=== PATIENT | female | born 1945 | race Caucasian/White ===

== ENCOUNTER 2017-05-05 13:40 | Inpatient (IN) | payer MEDICARE, MEDICAID ==
[~2017-05-05] VITALS: Ht 162.6 cm; Wt 77.2 kg
[~2017-05-05 13:40] MED LIST: AMOXICILLIN 50500 MG PO; ATIVAN1 MG PO; NORCO 325 MG-51 TAB PO; RAMIPRIL5 MG PO
[2017-05-05 13:42] VITALS: BP 157/78
--- NOTE | 2017-05-05 13:52 | Emergency Room Report ---
History of Present Illness Time Seen by 134Carmen Presenting Problem in Triage Pt arrived:Wheelchair Presenting Problem:LOWER ABD PAIN THAT STARTED AROUND 1030. 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 N Clinical Suspician of Infection? N Mental Status: 1 - Regular (Normal Baseline) Sepsis Risk:Possible Sepsis Risk Have you (or family members/close friends) recently traveled outside the [place]? N If Yes, where/when: Have you had exposure to infectious disease within the past month? TB? Other? Specify: Source patient, RN notes reviewed, family, old records Exam Limitations no limitations Comment acute onset od lower abd pain with vomiting and dec po intake with no diarrhea or fever Cardiac Chest Pain Chest pain indicative of cardiac No Timing/Duration this afternoon Severity moderate ALLERGIES Coded Allergies: Sulfa (Sulfonamide Antibiotics) (Intermediate, rash 03/25/17) Home Medications Reported Medications Ramipril (Ramipril 5MG) 5 MG PO BID Lorazepam (Ativan 1MG) 1 MG PO TIDP PRN ANXIETY History Medical History General CAD? No Angina: No SD: No Hypertension? Yes Hyperlipidemia? No CHF? No DVT? No PE? No COPD? No Asthma? No Anemia? No GERD? No Gastric ulcers? No GI Bleed? No Hernia? No Thyroid Problems? No Hypothyroidism? No CVA? No Seizures? No Diabetes? No Renal Insuffiency? No End Stage Renal Disease? No UTI? No Stones? No GB Disease: No Nephritic Syndrome? No Asplenia? No Hepatitis? Yes Sickle Cell Disease? No Arthritis? Yes Migraines? No Cataracts? No Glaucoma? No MRSA? No HIV? No TB? No Anxiety? Yes Depression? No Cancer? No More? No Immunization Hx DT/Tetanus > 10 Years Ago Surgical Hx Previous Surgery?Y WISDOM TEETH Social History Smoking Hx Smoker: Never Smoker Tobacco: No Alcohol Alcohol: No Drugs none Review of Systems All Other Systems Reviewed and Negative Constitutional denies fever Eyes denies drainage ENT denies: ear discharge, epistaxis, throat pain. Respiratory denies cough, denies shortness of breath, denies wheezing Cardiovascular denies chest pain, denies palpitations, denies syncope Gastrointestinal see HPI, abdominal pain, denies diarrhea, nausea, denies vomiting Genitourinary denies: dysuria, frequency, hesitancy, hematuria. Musculoskeletal denies back pain, denies joint pain, denies joint swelling, denies neck pain Skin denies rash Psychiatric/Neurological denies headache, denies seizure Physical Exam Vital Signs Vital Signs Date Time Temp Pulse Resp B/P Pulse O2 O2 Flow FiO2 Ox Delivery Rate 05/05 1342 97.9 105 20 157/78 95 - WBC >12,000 or <4,000 or 10% bands? 2 or more SIRS Criteria Met? B/P:157/78 MAP:104 Creatinine >2.0? UA output<0.5ml/kg/hr for 2 hrs? Platelet count >100,000? Lactate >2.0mmol/1? INR >1.2 or PTT > than 60 sec? Evidence of Organ Dysfunction? Provider documented clinical suspician of infection? N Sepsis Criteria Count: 2 Sepsis Risk: Possible Sepsis Risk General Appearance no apparent distress Eye Exam - bilateral eye PERRL, bilateral eye EOMI Ear, Nose, Throat normal ENT inspection Neck supple Respiratory Status No: respiratory distress. Lung Sounds bilateral: lungs clear. 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 No Results/Orders Laboratory Tests 05/05/17 1412: Urine Color YELLOW, Urine Appearance CLEAR, Urine pH 5.0, Ur Specific [place] >= 1.030, Urine Protein TRACE H, Urine Ketones TRACE H, Urine Blood 1+ H, Urine Nitrate NEGATIVE, Urine Bilirubin 1+ H, Urine Urobilinogen 0.2, Ur Leukocyte Esterase TRACE H, Urine RBC 5-10, Urine WBC 3-5, Ur Squamous Epith Cells 20-50, Urine Bacteria 2+, Urine Glucose NEGATIVE 05/05/17 1400: Lactic Acid 1.4 05/05/17 1345: Amylase 31 08/28/17 1345: Sodium 139, Potassium 3.4 L, Chloride 101, Carbon Dioxide 27, BUN 13, Creatinine 1.0, Estimated Creat Clear 57, Estimated GFR (MDRD) 54 L, Glucose 133 H, Calcium 9.1, Total Bilirubin 0.4, AST 22, ALT 25, Alkaline Phosphatase 140 H, Total Protein 8.4 H, Albumin 3.3 L, Globulin 5.1 H, Albumin/Globulin Ratio 0.6 L, WBC 16.8 H, RBC 4.70, Hgb 13.3, Hct 42.1, MCV 89.5, RDW 13.6, Plt Count 585 H, MPV 6.6 L, Gran % 88.8 H, Gran # 14.9 H, Total Counted 100, Lymphocytes % 6.7 L, Monocytes % 2.9, Eosinophils % 1.3, Basophils % 0.3, Neutrophils 82 H, Band Neutrophils 3, Lymphocytes (Manual) 9 L, Lymphocytes # 1.1, Monocytes (Manual) 3, Monocytes # 0.5, Eosinophils # 0.2, Eosinophils # ( Manual) 3, Basophils # 0.1, Platelet Estimate MARKED INCREASE, PUBS MCHC 31.7 L , MCH 28.3 Current Medication Orders Sig/Roberto Carlos Start time Last Medication Dose Route Stop Time Status Admin Levofloxacin/Dextrose 150 ML ONCE ONE 05/05 1500 CKDr IV 05/05 1629 Metronidazole 100 ML ONCE ONE 05/05 1500 AC IV 05/05 1559 Morphine Sulfate 2 MG ONCE ONE 05/05 1500 AC IV 05/05 1501 Ondansetron HCl 4 MG ONCE ONE 05/05 1500 AC 05/05 IV 05/05 1501 1458 Morphine Sulfate 0 .STK-MED ONE 05/05 1457 DC .ROUTE Ondansetron HCl 0 .STK-MED ONE 05/05 1457 DC .ROUTE Sodium Chloride 10 ML PRN PRN 05/05 1400 AC IV 05/06 1347 Orders Procedure Date/time Status DIET-NOTHING BY MOUTH 05/05 D Active Decision to admit 05/05 1458 Active CULTURE, URINE 05/05 1412 Active LACTIC ACID 05/05 1353 Complete AMYLASE 05/[address] SCAN REQ 05/05 1352 Complete IV SALINE LOCK 05/05 1348 Active URINALYSIS/COMPLETE 05/05 1348 Complete CBC WITH AUTO DIFF 05/05 1348 Complete CHEM 12 PROFILE 05/05 1348 Complete DIFFERENTIAL-WBC 05/05 1345 Complete XRAY/CT/US XRAY/CT/US CT abdomen, pelvis CT interpretation by discussed w/radiologist Time results known: 1459 CT Results abnormal (colitis) Departure Departure Time of Disposition 145 Disposition Still a Patient Clinical Impression Primary Impression: Colitis Secondary Impressions: Diverticulitis large intestine Qualifiers: Diverticulitis bleeding: without bleeding Diverticulitis complication: without perforation or abscess Qualified Code: K57.32 - Diverticulitis of large intestine without perforation or abscess without bleeding Condition STABLE Referrals Dominic Molina MD discussed with dr molina ED Critical Care Critical Care No at 1505
[2017-05-05 13:58] LABS: HEMOGLOBIN 13.3 g/dL (12.2-16.2); LYMPH # 1.1 K/mm3 (0.7-4.5); LYMPH % 6.7 % (10-50.0)
[2017-05-05 14:19] LABS: URINE BLOOD 1+ (NEG)
[2017-05-05 14:38] LABS: NEUTROPHILS 82 % (42-76)
[2017-05-05 14:40] LABS: URINE BILIRUBIN - DIPSTICK 1+ (NEG)
[2017-05-05 14:41] LABS: URINE SQUAMOUS CELLS 20-50 #/hpf (0-5)
--- NOTE | 2017-05-05 14:41 | RADIOLOGY REPORT PS360 ---
CT ABD PELVIS W/O CONTRAST CLINICAL INDICATION: Lower abdominal pain ABD PAIN ORDERING PHYSICIAN: [place] MD PATIENT AGE: 72 years COMPARISON: 09/13/2014 TECHNIQUE: Axial images obtained with sagittal and coronal reformats. PROCEDURE: Oral Contrast: None IV Contrast: None . FINDINGS: Lung bases are clear. The gallbladder is somewhat distended with gallstones. The liver, spleen, adrenal glands, and pancreas has an unremarkable unenhanced CT appearance. There is left hydronephrosis versus prominent parapelvic renal cyst. UPJ stenosis is considered. IVP or CT urogram could distinguish between the 2 entities if clinically warranted. No obstructing renal or ureteral calculi. There is diffuse thickening of the transverse colon and descending colon consistent with colitis. There is thickening also the sigmoid colon with multiple prominent sigmoid diverticula. There is mild stranding of the fat in the perisigmoid region. Diverticulitis is a consideration. No abscess or perforation evident. There is a 3.5 cm left ovarian cyst similar to the previous exam. There is dense calcification along the superior aspect of the fundus of the uterus and could be due to small exophytic fibroid There is spondylosis of lumbar spine with 9 mm anterolisthesis of L4 on L5. IMPRESSION: 1. Moderate thickening of the transverse colon with minimal stranding of the pericolic fat along with thickening of the descending and sigmoid colon consistent with colitis 2. Diverticulosis involves the distal descending and sigmoid colon. There is some minimal stranding of the fat in this area which could be related to superimposed diverticulitis as well. No abscess or perforation. 3. 3.5 cm left ovarian cyst. 4. Left hydronephrosis versus parapelvic renal cyst which may be better evaluated with IVP or CT urography
--- NOTE | 2017-05-05 17:14 | HISTORY AND PHYSICAL REPORT ---
Demographics: Admit date: 05/05/17 Chief complaint: Abdominal pain PRIMARY DIAGNOSIS: suspected colitis Allergies: Coded Allergies: Penicillins (Severe, 05/05/17) Sulfa (Sulfonamide Antibiotics) (Intermediate, rash 03/25/17) History of present illness: History of present illness: 72-year-old female has been having gastrointestinal symptoms for the last several months presented to the emergency department today after acute onset of epigastric abdominal pain. Patient had one episode of retching at home and presented to the emergency department because of worsening abdominal pain. In the emergency department workup was begun. Patient had abdominal tenderness, elevated white blood cell count of 16,000, CT scan showing transverse colitis and possible early diverticulitis of the sigmoid colon. Patient is scheduled for colonoscopy on May 16. Patient is admitted for IV antibiotics and pain control. At the time of my interview couple hours after admission she is pain- free and hungry. She denies fevers or chills. Bowel movements have been normal consistency for her Past medical history: Family HX Family Hx Insignificant Yes Immunization HX DT/Tetanus > 10 Years Ago General CAD? No Angina: No CO: No Hypertension? Yes Hyperlipidemia? No CHF? No DVT? No PE? No COPD? No Asthma? No Anemia? No GERD? No Gastric ulcers? No GI Bleed? No Hernia? No Thyroid Problems? No Hypothyroidism? No CVA? No Seizures? No Diabetes? No Renal Insuffiency? No UTI? No Stones? No GB Disease: No Nephritic Syndrome? No Asplenia? No Hepatitis? Yes Sickle Cell Disease? No Arthritis? Yes Migraines? No Cataracts? No Glaucoma? No MRSA? No HIV? No TB? No Anxiety? Yes Depression? No Cancer? No More? No Past Surgical HX Previous Surgery?Y WISDOM TEETH Current home meds: Reported Medications Ramipril (Ramipril 5MG) 5 MG PO BID Lorazepam (Ativan 1MG) 1 MG PO TIDP PRN ANXIETY Social Hx: Smoking HX Tobacco No Alcohol Alcohol: No Hx of Drug Use Drug Use? No Patien't marital status is Review of systems: Constitutional see HPI. Respiratory no symptoms reported. Cardiovascular no symptoms reported Gastrointestinal/Abdominal see HPI Genitourinary no symptoms reported. Musculoskeletal no symptoms reported. Neurological Yes: no symptoms reported. Exam: Lab data for last 24 hours: Laboratory Tests 05/05/17 1412: Urine Color YELLOW, Urine Appearance CLEAR, Urine pH 5.0, Ur Specific [place] >= 1.030, Urine Protein TRACE H, Urine Ketones TRACE H, Urine Blood 1+ H, Urine Nitrate NEGATIVE, Urine Bilirubin 1+ H, Urine Urobilinogen 0.2, Ur Leukocyte Esterase TRACE H, Urine RBC 5-10, Urine WBC 3-5, Ur Squamous Epith Cells 20-50, Urine Bacteria 2+, Urine Glucose NEGATIVE 05/05/17 1400: Lactic Acid 1.4 05/05/17 1345: Amylase 31 05/05/17 1345: Sodium 139, Potassium 3.4 L, Chloride 101, Carbon Dioxide 27, BUN 13, Creatinine 1.0, Estimated Creat Clear 57, Estimated GFR (MDRD) 54 L, Glucose 133 H, Calcium 9.1, Total Bilirubin 0.4, AST 22, ALT 25, Alkaline Phosphatase 140 H, Total Protein 8.4 H, Albumin 3.3 L, Globulin 5.1 H, Albumin/Globulin Ratio 0.6 L, WBC 16.8 H, RBC 4.70, Hgb 13.3, Hct 42.1, MCV 89.5, RDW 13.6, Plt Count 585 H, MPV 6.6 L, Gran % 88.8 H, Gran # 14.9 H, Total Counted 100, Lymphocytes % 6.7 L, Monocytes % 2.9, Eosinophils % 1.3, Basophils % 0.3, Neutrophils 82 H, Band Neutrophils 3, Lymphocytes (Manual) 9 L, Lymphocytes # 1.1, Monocytes (Manual) 3, Monocytes # 0.5, Eosinophils # 0.2, Eosinophils # ( Manual) 3, Basophils # 0.1, Platelet Estimate MARKED INCREASE, PUBS MCHC 31.7 L , MCH 28.3 Microbiology 05/05 141 URINE CC: Urine Culture - RECD Admission vital signs: 1ST Vital Signs Result Date Time Pulse Ox 95 05/05 134 B/P 157/78 05/05 134 Temp 97.9 05/05 134 Pulse 105 05/05 134 Resp 20 05/05 134 Exam General appearance: normal appearance, alert, awake ENT: normal exam, mucous membranes moist Neck: normal inspection, non-tender, no carotid bruit, no JVD Cardiovascular: normal exam Respiratory: normal exam, clear to auscultation ABD: normal exam, non-distended, normal bowel sounds Plan: Problem List 1. Colitis 2. Diverticulitis large intestine Plan: Admit for IV antibiotics and pain control. Patient is already improving. I will advance her diet
[2017-05-05 17:25] VITALS: BP 153/44
[2017-05-05 20:00] VITALS: BP 126/42
[2017-05-06 04:30] VITALS: BP 129/49
[2017-05-06 06:55] LABS: LYMPH # 1.2 K/mm3 (0.7-4.5); LYMPH % 9.2 % (10-50.0)
[2017-05-06 07:13] LABS: HEMOGLOBIN 11.2 g/dL (12.2-16.2)
--- NOTE | 2017-05-06 07:17 | PHARMACY CLINIC NOTE ---
Patient Demographics Patient Demographics Admission date: 05/05/17 Date: 05/06/17 Time: 07 Allergies Coded Allergies: Penicillins (Severe, 05/05/17) Sulfa (Sulfonamide Antibiotics) (Intermediate, rash 03/25/17) HEIGHT- FT: 5 IN: 4.00 K.988 VTE General Information Labs: Laboratory Tests 05/06 05/05 0630 1345 Hematology Hgb (12.2 - 16.2 g/dL) 11.2 L 13.3 Hct (37.0 - 47.0 %) 34.7 L 42.1 Plt Count (142 - 424 K/mm3) 438 H 585 H Disclaimer The following section includes nursing documentation that has been pulled in for pharmacy review. Patient's VTE score: 1 Patient's VTE Risk: VERY LOW RISK Clinical trial participant? No VTE prophylaxis [id number] VTE prophylaxis ordered? Yes Type of prophylaxis/treatment: CHARI at 0717
--- NOTE | 2017-05-06 07:17 | PHARMACY CLINIC NOTE ---
Patient Demographics Patient Demographics Admission date: 05/05/17 Date: 05/06/17 Time: 07 Allergies Coded Allergies: Penicillins (Severe, 05/05/17) Sulfa (Sulfonamide Antibiotics) (Intermediate, rash 03/25/17) HEIGHT- FT: 5 IN: 4.00 K.988 VTE General Information Labs: Laboratory Tests 05/06 05/05 0630 1345 Hematology Hgb (12.2 - 16.2 g/dL) 11.2 L 13.3 Hct (37.0 - 47.0 %) 34.7 L 42.1 Plt Count (142 - 424 K/mm3) 438 H 585 H Disclaimer The following section includes nursing documentation that has been pulled in for pharmacy review. Patient's VTE score: 1 Patient's VTE Risk: VERY LOW RISK Clinical trial participant? No VTE prophylaxis [id number] VTE prophylaxis ordered? Yes Type of prophylaxis/treatment: CHARI at 0717
--- NOTE | 2017-05-06 07:25 | ACUTE CARE PROGRESS NOTE (QUA) ---
Progress Notes Subjective Date 05/06/17 Time 0724 Note Patient complains of LEFT lower quadrant pain this morning. Her appetite remains poor. No fevers overnight. She is in no distress. Lungs are clear. Heart has regular rate and rhythm. Abdomen has LEFT lower quadrant tenderness to palpation without rebound. Continue dual antibiotic therapy for acute diverticulitis. Patient is been ordered a low-residue diet but instructed that if this causes pain we will decrease her diet to liquids Objective Findings Last VS-Temp:98.2 B/P:129/49 Pulse:79 Resp:20 SaO2:95 ROOM AIR Last weight lbs:156 oz:8 K.988 Method:Bed Scales Laboratory Tests 05/06/17 0630: Sodium 139, Potassium 4.0, Chloride 105, Carbon Dioxide 24, BUN 13, Creatinine 0.8, Estimated Creat Clear 70, Estimated GFR (MDRD) 70, Glucose 114 H, Calcium 8.5, WBC 13.1 H, RBC 3.90 L, Hgb 11.2 L, Hct 34.7 L, MCV 89.0, RDW 13.6, Plt Count 438 H, MPV 6.9 L, Gran % 82.4 H, Gran # 10.8 H, Lymphocytes % 9.2 L, Monocytes % 3.9, Eosinophils % 3.8, Basophils % 0.5, Lymphocytes # 1.2, Monocytes # 0.5, Eosinophils # 0.5 H, Basophils # 0.1, PUBS MCHC 32.0, MCH 28.5 05/05/17 1412: Urine Color YELLOW, Urine Appearance CLEAR, Urine pH 5.0, Ur Specific [place] >= 1.030, Urine Protein TRACE H, Urine Ketones TRACE H, Urine Blood 1+ H, Urine Nitrate NEGATIVE, Urine Bilirubin 1+ H, Urine Urobilinogen 0.2, Ur Leukocyte Esterase TRACE H, Urine RBC 5-10, Urine WBC 3-5, Ur Squamous Epith Cells 20-50, Urine Bacteria 2+, Urine Glucose NEGATIVE 05/05/17 1400: Lactic Acid 1.4 05/05/17 1345: Amylase 31 05/05/17 1345: Sodium 139, Potassium 3.4 L, Chloride 101, Carbon Dioxide 27, BUN 13, Creatinine 1.0, Estimated Creat Clear 57, Estimated GFR (MDRD) 54 L, Glucose 133 H, Calcium 9.1, Total Bilirubin 0.4, AST 22, ALT 25, Alkaline Phosphatase 140 H, Total Protein 8.4 H, Albumin 3.3 L, Globulin 5.1 H, Albumin/Globulin Ratio 0.6 L, WBC 16.8 H, RBC 4.70, Hgb 13.3, Hct 42.1, MCV 89.5, RDW 13.6, Plt Count 585 H, MPV 6.6 L, Gran % 88.8 H, Gran # 14.9 H, Total Counted 100, Lymphocytes % 6.7 L, Monocytes % 2.9, Eosinophils % 1.3, Basophils % 0.3, Neutrophils 82 H, Band Neutrophils 3, Lymphocytes (Manual) 9 L, Lymphocytes # 1.1, Monocytes (Manual) 3, Monocytes # 0.5, Eosinophils # 0.2, Eosinophils # ( Manual) 3, Basophils # 0.1, Platelet Estimate MARKED INCREASE, PUBS MCHC 31.7 L , MCH 28.3 Microbiology 05/05 1412 URINE CC: Urine Culture - RECD Assessment/Plan Problem List 1. Colitis 2. Diverticulitis large intestine Qualifiers: Diverticulitis bleeding: without bleeding Diverticulitis complication: without perforation or abscess Qualified Code: K57.32 - Diverticulitis of large intestine without perforation or abscess without bleeding Patient condition Stable Plan: continue current care This inpt stay is expected to cross 2 MNs from start of care Yes at 0725
[2017-05-06 08:00] VITALS: BP 122/53
[2017-05-06 08:55] VITALS: BP 122/53
[2017-05-06 13:50] LABS: AEROMONAS NOT DETECTED (NOT DETECTE); ASTROVIRUS NOT DETECTED (NOT DETECTE); CYCLOSPORA CAYETANENSIS NOT DETECTED (NOT DETECTE); E COLI O157 NOT DETECTED (NOT DETECTE); ENTEROAGGREGATIVE E COLI NOT DETECTED (NOT DETECTE); ENTEROTOXIGENIC E COLI NOT DETECTED (NOT DETECTE); NOROVIRUS NOT DETECTED (NOT DETECTE); SAPOVIRUS NOT DETECTED (NOT DETECTE); SHIGA-LIKE TOXIN PROD. E COLI NOT DETECTED (NOT DETECTE); SHIGELLA/ENTEROINVASIVE E COLI NOT DETECTED (NOT DETECTE); VIBRIO CHOLERAE NOT DETECTED (NOT DETECTE)
[2017-05-06 15:29] VITALS: BP 121/45
[2017-05-06 17:44] LABS: ENTEROPATHOGENIC E COLI DETECTED (NOT DETECTE)
[2017-05-06 20:07] VITALS: BP 151/41
[2017-05-06 20:08] VITALS: BP 151/41
[2017-05-07 04:30] VITALS: BP 152/50
[2017-05-07 06:53] LABS: HEMOGLOBIN 10.9 g/dL (12.2-16.2); LYMPH % 8.5 % (10-50.0)
--- NOTE | 2017-05-07 07:36 | ACUTE CARE PROGRESS NOTE (QUA) ---
Progress Notes Subjective Date 05/07/17 Time 0735 Note Patient vomited yesterday morning after her low residue diet. Diet was decreased to liquids which she also vomited up about 30 minutes after ingesting at suppertime. Patient is also developed diarrhea. No fevers. She appears comfortable. Abdomen is soft with LEFT upper quadrant and LEFT lower quadrant tenderness today. She is more tender today than yesterday. Diarrhea panel grew enteropathogenic E. coli. White blood cell count has decreased slightly to 11,000. Repeat CT scan of abdomen and pelvis with IV and oral contrast today. Objective Findings Last VS-Temp:98.8 B/P:152/50 Pulse:83 Resp:18 SaO2:95 ROOM AIR Last weight lbs:156 oz:8 K.988 Method:Bed Scales Laboratory Tests 05/07/17 0611: WBC 11.7 H, RBC 3.90 L, Hgb 10.9 L, Hct 35.3 L, MCV 90.5, RDW 13.7, Plt Count 419, MPV 6.9 L, Gran % 83.1 H, Gran # 9.7 H, Lymphocytes % 8.5 L, Monocytes % 5.2, Eosinophils % 3.0, Basophils % 0.2, Lymphocytes # 1.0, Monocytes # 0.6, Eosinophils # 0.4, Basophils # 0.0, PUBS MCHC 31.0 L, MCH 28.0 05/06/17 1345: Stl Cyclospora species NOT DETECTED, Stool Rotavirus (PCR) NOT DETECTED, Stool Campylobacter PCR NOT DETECTED, Stool Giardia Lamblia PCR NOT DETECTED, Stl Norovirus GI/GII PCR NOT DETECTED, Adenovirus (PCR) NOT DETECTED, C. difficile Tox (PCR) NOT DETECTED, E. coli (PCR) NOT DETECTED, Yersinia (PCR) NOT DETECTED Assessment/Plan Problem List 1. Colitis 2. Diverticulitis large intestine Qualifiers: Diverticulitis bleeding: without bleeding Diverticulitis complication: without perforation or abscess Qualified Code: K57.32 - Diverticulitis of large intestine without perforation or abscess without bleeding Patient condition Guarded Plan: continue current care, order additional tests This inpt stay is expected to cross 2 MNs from start of care Yes at 0736
[2017-05-07 08:00] VITALS: BP 143/65
[2017-05-07 09:29] VITALS: BP 143/65
--- NOTE | 2017-05-07 13:54 | RADIOLOGY REPORT PS360 ---
CT ABD PELVIS W/WO CONTRAST INDICATION: ABDOMEN PAIN, COLITIS, UTI, DIVERTICULITIS ORDERING PHYSICIAN: Dominic Kim MD PATIENT AGE: 72 years COMPARISON: 05/05/2017 TECHNIQUE: Axial images obtained without and with IV contrast. Oral contrast also utilized FINDINGS: Atelectatic changes are present in the lung bases.. There is trace left pleural effusion. The liver has an unremarkable appearance. Gallstones are suspected. No biliary dilatation. There was decreased attenuation in the medial aspect of the spleen on the immediate images not apparent on the delayed images consistent with perfusion artifact. Atrophic changes are present within the pancreas. The adrenal glands are unremarkable. There are bilateral parapelvic renal cysts more extensive on the left. No hydronephrosis or hydroureter. The left renal collecting system is attenuated by the overlying parapelvic renal cyst. Increased thickening is present involving the transverse colon. There is some mild dilatation of the bowel involving the transverse colon. Pseudomembranous colitis is considered. The descending colon has an unremarkable appearance. There are diverticula once again noted involving the sigmoid colon with thickening of the sigmoid colon and minimal stranding of the pericolic fat suspicious for mild diverticulitis. No abscess. There is a left ovarian cyst which measures 3 cm. The left ovary is enlarged at 5.4 x 3.8 cm. No evidence of abscess or perforation. IMPRESSION: 1. Increased thickening and distention of the transverse colon consistent with colitis. Pseudomembranous colitis should be considered. No obvious pneumatosis. No evidence of free air. 2. Diverticulosis of the sigmoid colon with Persistent thickening of the sigmoid colon with minimal stranding of the pericolic fat consistent with mild diverticulitis not significant change. No abscess or perforation. 3. Slightly enlarged left ovary with left ovarian cyst.
[2017-05-07 16:00] VITALS: BP 148/45
[2017-05-07 19:34] VITALS: BP 136/56
[2017-05-07 19:56] VITALS: BP 136/56
[2017-05-08 04:17] VITALS: BP 155/63
[2017-05-08 07:15] LABS: HEMOGLOBIN 10.9 g/dL (12.2-16.2); LYMPH # 0.9 K/mm3 (0.7-4.5); LYMPH % 7.6 % (10-50.0)
--- NOTE | 2017-05-08 07:32 | ACUTE CARE PROGRESS NOTE (QUA) ---
Progress Notes Subjective Date 05/08/17 Time 0730 Note Patient continues to complain of abdominal pain and this morning is in the suprapubic and LEFT lower quadrant area. CT scan of the abdomen and pelvis yesterday was essentially unchanged. She has colitis in the transverse colon and diverticulosis of the sigmoid colon but no significant diverticulitis. She tolerated a very small amount of clear liquids yesterday She sitting up in bed awake and alert. Abdomen is soft with mild LEFT lower quadrant tenderness to palpation. Bowel sounds present. Going to stop her Levaquin as she is having significant diarrhea. Initial diarrhea PCR panel was negative for C. difficile. As her diverticulitis is improved I'm going to try to avoid any antibiotic associated diarrhea. She will remain on Flagyl. Continue clear liquid Objective Findings Last VS-Temp:98.3 B/P:155/63 Pulse:89 Resp:18 SaO2:95 ROOM AIR Last weight lbs:156 oz:8 K.988 Method:Bed Scales Laboratory Tests 05/08/17 0630: Sodium 138, Potassium 3.3 L, Chloride 104, Carbon Dioxide 25, BUN 7, Creatinine 0.7, Estimated Creat Clear 80, Estimated GFR (MDRD) 82, Glucose 97, Calcium 8.4 L Assessment/Plan Problem List 1. Colitis 2. Diverticulitis large intestine Qualifiers: Diverticulitis bleeding: without bleeding Diverticulitis complication: without perforation or abscess Qualified Code: K57.32 - Diverticulitis of large intestine without perforation or abscess without bleeding Patient condition Improving Plan: continue current care This inpt stay is expected to cross 2 MNs from start of care Yes at 0731
[2017-05-08 08:00] VITALS: BP 156/62
[2017-05-08 09:00] VITALS: BP 156/62
--- NOTE | 2017-05-08 09:27 | ACUTE CARE PROGRESS NOTE (QUA) ---
Progress Notes Subjective Date 05/08/17 Time 0924 Assessment/Plan Problem List 1. Colitis 2. Diverticulitis large intestine This inpt stay is expected to cross 2 MNs from start of care Yes Antibiotic Stewardship (2) Current Culture Results Microbiology 05/05 1412 URINE CC: Urine Culture - COMP KLEBSIELLA PNEUMONIAE Infxn that will respond? Yes (KLEBSIELLA PNEUMONIAE) Right drug,dose,and route? Yes (MACROBID) More targeted antbx? No Comment: SWTICHED FROM LEVAQUIN TO MACROBID DUE TO DIARRHEA. CONTINUING FLAGYL. at 2543
[2017-05-08 16:10] VITALS: BP 142/69
[2017-05-08 19:31] VITALS: BP 159/68
[2017-05-09 04:06] VITALS: BP 140/73
[2017-05-09 06:54] LABS: AEROMONAS NOT DETECTED (NOT DETECTE); ASTROVIRUS NOT DETECTED (NOT DETECTE); CYCLOSPORA CAYETANENSIS NOT DETECTED (NOT DETECTE); E COLI O157 NOT DETECTED (NOT DETECTE); ENTEROAGGREGATIVE E COLI NOT DETECTED (NOT DETECTE); ENTEROTOXIGENIC E COLI NOT DETECTED (NOT DETECTE); NOROVIRUS NOT DETECTED (NOT DETECTE); SAPOVIRUS NOT DETECTED (NOT DETECTE); SHIGA-LIKE TOXIN PROD. E COLI NOT DETECTED (NOT DETECTE); SHIGELLA/ENTEROINVASIVE E COLI NOT DETECTED (NOT DETECTE); VIBRIO CHOLERAE NOT DETECTED (NOT DETECTE)
[2017-05-09 06:59] LABS: STOOL OCCULT BLOOD POSITIVE (NEG)
--- NOTE | 2017-05-09 07:22 | ACUTE CARE PROGRESS NOTE (QUA) ---
Progress Notes Subjective Date 05/09/17 Time 0719 Note Patient estimates she's had about 6 watery loose stools in the last 24 hours. She will develop crampy abdominal pain and then have a bowel movement. She has had similar symptoms in the past when she took Macrodantin which she was placed on yesterday for her Klebsiella pneumoniae urinary tract infection. Her appetite remains poor and she is taking small amounts of liquids. Vital signs reviewed. Abdomen is soft with mild LEFT lower quadrant tenderness to palpation. Tenderness seems to have improved since yesterday. Patient's clinical picture somewhat confusing. Her diarrhea is increasing but her tenderness is decreasing. I'm going to repeat stool studies today. Also check stool for blood. Change her Macrodantin for her UTI. Continue Flagyl. Objective Findings Last VS-Temp:97.7 B/P:140/73 Pulse:86 Resp:18 SaO2:92 ROOM AIR Last weight lbs:156 oz:8 K.988 Method:Bed Scales Laboratory Tests 05/09/17 0020: Stool Occult Blood POSITIVE Assessment/Plan Problem List 1. Colitis 2. Diverticulitis large intestine Qualifiers: Diverticulitis bleeding: without bleeding Diverticulitis complication: without perforation or abscess Qualified Code: K57.32 - Diverticulitis of large intestine without perforation or abscess without bleeding 3. Urinary tract infection 4. Klebsiella infection Patient condition Stable Plan: continue current care This inpt stay is expected to cross 2 MNs from start of care Yes Antibiotic Stewardship (2) Infxn that will respond? Yes (KLEBSIELLA PNEUMONIAE) Right drug,dose,and route? Yes (MACROBID) More targeted antbx? No at 0721
[2017-05-09 07:45] LABS: HEMOGLOBIN 11.1 g/dL (12.2-16.2); LYMPH # 0.8 K/mm3 (0.7-4.5); LYMPH % 5.9 % (10-50.0)
[2017-05-09 08:04] VITALS: BP 170/74
[2017-05-09 08:48] VITALS: BP 170/74
[2017-05-09 08:53] LABS: ENTEROPATHOGENIC E COLI DETECTED (NOT DETECTE)
[2017-05-09 10:51] LABS: NEUTROPHILS 79 % (42-76)
[2017-05-09 16:01] VITALS: BP 155/78
[2017-05-09 19:54] VITALS: BP 174/67
[2017-05-09 21:00] VITALS: BP 174/67
[2017-05-10 04:00] VITALS: BP 192/76
[2017-05-10 07:19] LABS: HEMOGLOBIN 10.9 g/dL (12.2-16.2); LYMPH % 7.7 % (10-50.0)
--- NOTE | 2017-05-10 07:41 | ACUTE CARE PROGRESS NOTE (QUA) ---
Progress Notes Subjective Date 05/10/17 Time 0740 Note Patient is without complaints this morning. She still has mild nausea and does not want anything more than clear liquids. She had multiple bowel movements are up-to-date yesterday and nursing staff reports large bloody bowel movements. Patient did not really feel like there is any significant bright red blood. She describes the stools as brown. She has not had any fevers. She reports improvement in abdominal pain but still has cramping after bowel movements. She looks well. Abdomen is soft with less epigastric tenderness today and no LEFT lower quadrant tenderness. Bowel sounds are present. Continue antibiotics. Encourage the patient to ambulate today. Repeat labs in a.m. H and H remained stable Objective Findings Last VS-Temp:98.6 B/P:192/76 Pulse:89 Resp:20 SaO2:92 ROOM AIR Last weight lbs:156 oz:8 K.988 Method:Bed Scales Laboratory Tests 05/10/17 0705: WBC 13.2 H, RBC 3.86 L, Hgb 10.9 L, Hct 33.7 L, MCV 87.4, RDW 13.6, Plt Count 429 H, MPV 6.7 L, Gran % 85.8 H, Gran # 11.3 H, Lymphocytes % 7.7 L, Monocytes % 4.7, Eosinophils % 1.5, Basophils % 0.2, Lymphocytes # 1.0, Monocytes # 0.6, Eosinophils # 0.2, Basophils # 0.0, PUBS MCHC 32.3, MCH 28.2 Assessment/Plan Problem List 1. Colitis 2. Diverticulitis large intestine Qualifiers: Diverticulitis bleeding: without bleeding Diverticulitis complication: without perforation or abscess Qualified Code: K57.32 - Diverticulitis of large intestine without perforation or abscess without bleeding 3. Urinary tract infection 4. Klebsiella infection Patient condition Stable Plan: continue current care This inpt stay is expected to cross 2 MNs from start of care Yes Antibiotic Stewardship (2) Infxn that will respond? Yes (KLEBSIELLA PNEUMONIAE) Right drug,dose,and route? Yes (MACROBID) More targeted antbx? No at 0741
[2017-05-10 08:30] VITALS: BP 153/72
[2017-05-10 09:09] LABS: NEUTROPHILS 84 % (42-76)
[2017-05-10 16:30] VITALS: BP 146/60
[2017-05-10 20:32] VITALS: BP 162/52
[2017-05-11 04:10] VITALS: BP 157/64
--- NOTE | 2017-05-11 06:49 | ACUTE CARE PROGRESS NOTE (QUA) ---
Progress Notes Subjective Date 05/11/17 Time 0647 Note Patient states she had 4 large loose stools during the day yesterday and 2 overnight.. She had more nausea yesterday and the day before and attributes this to the Levaquin. Her appetite remains poor although she has consumed slightly more clear liquids than on previous days. She is in no distress. The abdomen this morning reveals some mild epigastric tenderness without rebound or guarding. There is no LEFT lower quadrant tenderness. Bowel sounds are present Place her on Invanz. Discontinue Levaquin and Flagyl and Invanz to cover her urinary tract infection Objective Findings Last VS-Temp:97.8 B/P:157/64 Pulse:88 Resp:16 SaO2:97 ROOM AIR Last weight lbs:156 oz:8 K.988 Method:Bed Scales Laboratory Tests 05/10/17 0705: Sodium 143, Potassium 2.6 *L, Chloride 107, Carbon Dioxide 28, BUN 4 L, Creatinine 0.6, Estimated Creat Clear 94, Estimated GFR (MDRD) 98, Glucose 113 H, Calcium 7.9 L, WBC 13.2 H, RBC 3.86 L, Hgb 10.9 L, Hct 33.7 L, MCV 87.4, RDW 13.6, Plt Count 429 H, MPV 6.7 L, Gran % 85.8 H, Gran # 11.3 H, Total Counted 100, Lymphocytes % 7.7 L, Monocytes % 4.7, Eosinophils % 1.5, Basophils % 0.2, Neutrophils 84 H, Band Neutrophils 7, Lymphocytes (Manual) 6 L, Lymphocytes # 1.0, Monocytes (Manual) 2, Monocytes # 0.6, Eosinophils # 0.2, Eosinophils # (Manual) 1, Basophils # 0.0, Platelet Estimate NORMAL, PUBS MCHC 32.3, MCH 28.2 Vital Signs Date Time Temp Pulse Resp B/P Pulse O2 O2 Flow FiO2 Ox Delivery Rate 05/11 0601 16 05/11 0410 97.8 88 16 157/64 97 ROOM AIR Assessment/Plan Problem List 1. Colitis 2. Diverticulitis large intestine Qualifiers: Diverticulitis bleeding: without bleeding Diverticulitis complication: without perforation or abscess Qualified Code: K57.32 - Diverticulitis of large intestine without perforation or abscess without bleeding 3. Urinary tract infection 4. Klebsiella infection Patient condition Improving Plan: continue current care, make medication changes This inpt stay is expected to cross 2 MNs from start of care Yes Antibiotic Stewardship (2) Infxn that will respond? Yes (KLEBSIELLA PNEUMONIAE) Right drug,dose,and route? Yes (MACROBID) More targeted antbx? No at 0648
[2017-05-11 07:05] LABS: HEMOGLOBIN 11.2 g/dL (12.2-16.2)
[2017-05-11 08:00] VITALS: BP 153/73
[2017-05-11 16:02] VITALS: BP 138/58
[2017-05-11 20:16] VITALS: BP 160/69
[2017-05-11 20:35] VITALS: BP 160/69
[2017-05-12 03:51] VITALS: BP 158/71
--- NOTE | 2017-05-12 07:05 | ACUTE CARE PROGRESS NOTE (QUA) ---
Progress Notes Subjective Date 05/12/17 Time 0703 Note Patient continues to report crampy abdominal pain in the lower abdomen and suprapubic region. Pain occurs both after and before bowel movements. She estimates 6 loose stools over the last 24 hours. A couple of the stool she did not make it to the bathroom in time. She was able to tolerate some full liquids yesterday. She appears well. Abdomen is soft and nontender with normal bowel sounds. Lungs are clear. Heart has a regular rate and rhythm. DC IV fluids today to allow for better and more timely ambulation. Continue full liquids. Possible discharge tomorrow. Objective Findings Last VS-Temp:98.2 B/P:158/71 Pulse:94 Resp:20 SaO2:94 ROOM AIR Last weight lbs:156 oz:8 K.988 Method:Bed Scales Assessment/Plan Problem List 1. Colitis 2. Diverticulitis large intestine Qualifiers: Diverticulitis bleeding: without bleeding Diverticulitis complication: without perforation or abscess Qualified Code: K57.32 - Diverticulitis of large intestine without perforation or abscess without bleeding 3. Urinary tract infection 4. Klebsiella infection Patient condition Improving Plan: continue current care This inpt stay is expected to cross 2 MNs from start of care Yes Antibiotic Stewardship (2) Infxn that will respond? Yes (KLEBSIELLA PNEUMONIAE) Right drug,dose,and route? Yes (MACROBID) More targeted antbx? No at 0704
[2017-05-12 07:47] VITALS: BP 158/71
[2017-05-12 08:00] VITALS: BP 151/65
[2017-05-12 16:00] VITALS: BP 146/70
[2017-05-12 19:55] VITALS: BP 153/64
[2017-05-12 20:00] VITALS: BP 153/64
[2017-05-13 04:00] VITALS: BP 152/73
--- NOTE | 2017-05-13 07:13 | ACUTE CARE PROGRESS NOTE (QUA) ---
Progress Notes Subjective Date 05/13/17 Time 0710 Note Patient had elevated temperature yesterday afternoon of 100 degrees. She began complaining of neck pain later in the day. She is received Flexeril and a heating pad. In regards to abdominal pain she states her neck is hurting so bad she's forgotten about her abdominal pain. She continues to have loose stools. She is resting in bed with heating pad on her neck. She has tenderness along the LEFT trapezius. She has difficulty raising the LEFT arm above 60 degrees. Abdomen is soft and nontender. Repeat complete blood count this morning. Monitor for fevers today. Continue muscle relaxants and heating pad Objective Findings Last VS-Temp:97.5 B/P:152/73 Pulse:85 Resp:24 SaO2:95 ROOM AIR Last weight lbs:170 oz:3 K.196 Method:Bed Scales Assessment/Plan Problem List 1. Colitis 2. Diverticulitis large intestine Qualifiers: Diverticulitis bleeding: without bleeding Diverticulitis complication: without perforation or abscess Qualified Code: K57.32 - Diverticulitis of large intestine without perforation or abscess without bleeding 3. Urinary tract infection 4. Klebsiella infection 5. Trapezius muscle strain Patient condition Stable Plan: continue current care, order additional tests This inpt stay is expected to cross 2 MNs from start of care Yes Antibiotic Stewardship (2) Infxn that will respond? Yes (KLEBSIELLA PNEUMONIAE) Right drug,dose,and route? Yes (MACROBID) More targeted antbx? No at 0712
[2017-05-13 08:16] LABS: LYMPH # 1.1 K/mm3 (0.7-4.5); LYMPH % 7.1 % (10-50.0)
[2017-05-13 08:30] VITALS: BP 153/65
[2017-05-13 10:24] VITALS: BP 153/65
[2017-05-13 10:50] LABS: NEUTROPHILS 70 % (42-76)
[2017-05-13 16:30] VITALS: BP 148/74
[2017-05-13 19:57] VITALS: BP 159/62
[2017-05-13 19:58] VITALS: BP 159/62
[2017-05-14 03:50] VITALS: BP 160/71
[2017-05-14 06:56] LABS: LYMPH % 8.2 % (10-50.0)
--- NOTE | 2017-05-14 08:03 | ACUTE CARE PROGRESS NOTE (QUA) ---
Progress Notes Subjective Date 05/14/17 Time 0801 Note Patient reports feeling the same. Bowel movements remain watery and loose but smaller in volume. She continues to have episodes of abdominal cramping. She has not had any fevers. Her appetite remains poor. She is in no distress. Lungs are clear. Heart has regular rate and rhythm. Abdomen is soft and nontender with active bowel sounds. Patient's colitis is slowly resolving. She will be discharged home today. She has completed 10 days of antibiotics she will not need any antibiotics for her diverticulitis. She will follow-up in my office in 48 hours. Discharged home with bedside commode, potassium, probiotic. Objective Findings Last VS-Temp:97.9 B/P:160/71 Pulse:87 Resp:18 SaO2:93 ROOM AIR Last weight lbs:170 oz:3 K.196 Method:Bed Scales Laboratory Tests 05/14/17 0622: WBC 11.8 H, RBC 3.84 L, Hgb 11.0 L, Hct 34.0 L, MCV 88.5, RDW 13.9, Plt Count 420, MPV 6.6 L, Gran % 86.1 H, Gran # 10.1 H, Lymphocytes % 8.2 L, Monocytes % 3.7, Eosinophils % 1.8, Basophils % 0.2, Lymphocytes # 1.0, Monocytes # 0.4, Eosinophils # 0.2, Basophils # 0.0, PUBS MCHC 32.4, MCH 28.7 Assessment/Plan Problem List 1. Colitis 2. Diverticulitis large intestine Qualifiers: Diverticulitis bleeding: without bleeding Diverticulitis complication: without perforation or abscess Qualified Code: K57.32 - Diverticulitis of large intestine without perforation or abscess without bleeding 3. Urinary tract infection 4. Klebsiella infection 5. Trapezius muscle strain Patient condition Improving Plan: continue current care This inpt stay is expected to cross 2 MNs from start of care Yes Antibiotic Stewardship (2) Infxn that will respond? Yes (KLEBSIELLA PNEUMONIAE) Right drug,dose,and route? Yes (MACROBID) More targeted antbx? No at 0803
[2017-05-14] MEDS ORDERED: K-DUR 20MEQ TA20 MEQ PO (08:07)
[2017-05-14] MEDS ORDERED: RISAQUAD1 CA1 PO (08:07)
--- NOTE | 2017-05-14 08:07 | Discharge Summary ---
Demographics Admit date: 05/05/17 Discharge date: 05/14/17 Discharge diagnoses Problem List 1. Colitis 2. Diverticulitis large intestine 3. Urinary tract infection 4. Klebsiella infection 5. Trapezius muscle strain History of present illness History of present illness 72-year-old female has been having gastrointestinal symptoms for the last several months presented to the emergency department today after acute onset of epigastric abdominal pain. Patient had one episode of retching at home and presented to the emergency department because of worsening abdominal pain. In the emergency department workup was begun. Patient had abdominal tenderness, elevated white blood cell count of 16,000, CT scan showing transverse colitis and possible early diverticulitis of the sigmoid colon. Patient is scheduled for colonoscopy on May 16. Patient is admitted for IV antibiotics and pain control. At the time of my interview couple hours after admission she is pain- free and hungry. She denies fevers or chills. Bowel movements have been normal consistency for her. Patient was admitted and placed on Levaquin and Flagyl for her diverticulitis. Diarrhea panel revealed enteropathogenic E. coli infection. As hospitalization progressed bowel movements went from normal consistency to watery and large in volume with occasional mixture of blood. Bowel movements stay loose for most of the hospitalization. After 72 hours patient's pain had worsened in the LEFT lower quadrant so repeat CT scan was performed with IV and oral contrast. Repeat CT scan showed only small amount of diverticulitis and persistent transverse colitis. By this time patient's urine culture also grew Klebsiella species. Patient's white count had also increased and patient was switched from Levaquin and Flagyl to Invanz which she stayed on for the rest of her hospitalization. Patient did not get out of bed very much during her ten-day hospitalization other than to go to the bathroom despite repeated encouragement. She completed a 10 day course of antibiotics while hospitalized. Patient had repeat diarrhea panel performed which confirmed presence of enteropathogenic E. coli. Patient was scheduled for colonoscopy on May 16 but this will need to be postponed. By May 14 patient was tolerating full liquids and soft diet and diarrhea was beginning to improve. I did explain to the patient did the nature of the colitis that diarrhea may take some time to resolve. Patient was discharged home on May 14 in stable condition. She will follow-up in my office in 48 hours. She will continue new medication of potassium. She will also continue probiotic as an outpatient. Bedside commode will be arranged as well. Medications Medications: Discharge meds are as noted. Follow up Follow up in office in: 2 DAYS with: Dominic Kim MD at [phone]
[2017-05-14] MEDS ORDERED: COMM1 XX (08:08)
[2017-05-14 08:30] VITALS: BP 127/71; BP 173/62
[2017-05-14 09:00] VITALS: BP 160/71; BP 173/62
[2017-05-14 13:22] VITALS: BP 173/62
[2017-05-14 16:30] VITALS: BP 135/72
== END 2017-05-14 17:35 | disposition home or self-care (01) | DRG 372 ==
LOC: ER 13:40 → 2ND 15:01 → ER 15:01 → 2ND 15:30
PROVIDERS: Emergency Medicine; Family Medicine
DX: A04.0 Enteropathogenic Escherichia coli infection (principal); N39.0 Urinary tract infection, site not specified; B96.1 Klebsiella pneumoniae [K. pneumoniae] as the cause of diseases classified elsewhere; I10 Essential (primary) hypertension; K57.32 Diverticulitis of large intestine without perforation or abscess without bleeding; S46.819A Strain of other muscles, fascia and tendons at shoulder and upper arm level, unspecified arm, initial encounter
CPT/HCPCS: G0328; J1335; J2405; Q9967

== ENCOUNTER 2017-05-23 10:17 | Emergency (ER) | payer MEDICARE, MEDICAID ==
[~2017-05-23] VITALS: Ht 162.6 cm; Wt 75.8 kg
[~2017-05-23 10:17] MED LIST changes: +COMM1 XX; +K-DUR 20MEQ TA20 MEQ PO; +RISAQUAD1 CA1 PO
[2017-05-23] MEDS ORDERED: LASIX20 MG PO (10:37)
--- NOTE | 2017-05-23 10:40 | Emergency Room Report ---
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 N Clinical Suspician of Infection? N Mental Status: 1 - Regular (Normal Baseline) Sepsis Risk:Low Sepsis Risk Have you (or family members/close friends) recently traveled outside the [place]? N If Yes, where/when: Have you had exposure to infectious disease within the past month? N TB? Other? Specify: Patient with generalized weakness, cramping pelvic pain for the last few months, necessitating admission for transverse colitis, Klebsiellae UTI, diverticulitis, requiring initially Levaquin and Flagyl, followed by Marya. She was placed on a diuretic for global edema after receiving IVF during hospitalization; she also was placed on potassium. She has very little appetite, and is forcing herself to eat. She has no calf pain or SOB. She has had diarrhea for several months, and is scheduled to see Dr. Bailey, laser machine operator, on May 26, 2017, but the cramping became worse today and she wished to seek evaluation today. No fever. No new urinary sx. No vomiting. ALLERGIES Coded Allergies: Penicillins (Severe, 05/05/17) Sulfa (Sulfonamide Antibiotics) (Intermediate, rash 03/25/17) Home Medications Active Scripts POTASSIUM CHL (Potassium Chloride) 20 MEQ PO BID #60 TAB Prov: 05/14/17 L. ACIDOPHILUS/STREPT/LA P-KIYA (Risaquad Capsules) 1 CAP PO AC #90 CAPSULE Prov: 05/14/17 Device (Commode, Bedside) 1 UNIT XX UD #1 DEV Prov: 05/14/17 Reported Medications Ramipril (Ramipril 5MG) 5 MG PO BID Lorazepam (Ativan 1MG) 1 MG PO TIDP PRN ANXIETY Furosemide (Lasix) 20 MG PO DAILY History Medical History General CAD? No Angina: No HI: No Hypertension? Yes Hyperlipidemia? No CHF? No DVT? No PE? No COPD? No Asthma? No Anemia? No GERD? No Gastric ulcers? No GI Bleed? No Hernia? No Thyroid Problems? No Hypothyroidism? No CVA? No Seizures? No Diabetes? No Renal Insuffiency? No End Stage Renal Disease? No UTI? No Stones? No GB Disease: No Nephritic Syndrome? No Asplenia? No Hepatitis? Yes Sickle Cell Disease? No Arthritis? Yes Migraines? No Cataracts? No Glaucoma? No MRSA? No HIV? No TB? No Anxiety? Yes Depression? No Cancer? No More? No Immunization Hx DT/Tetanus > 10 Years Ago Pneumonia Refuses Surgical Hx Previous Surgery?Y WISDOM TEETH Family History Family Hx Diabetes No CAD No Hypertension Yes Hyperlipidemia Yes Cancer Yes TB No Social History Smoking Hx Smoker: Never Smoker Tobacco: No Alcohol Alcohol: No Review of Systems All Other Systems Reviewed and Negative Constitutional see HPI, weakness Gastrointestinal see HPI Psychiatric/Neurological see HPI, weakness Physical Exam Vital Signs Vital Signs Date Time Temp Pulse Resp B/P Pulse O2 O2 Flow FiO2 Ox Delivery Rate 05/23 1132 97.5 92 18 145/88 98 05/23 1029 97.5 110 18 168/72 98 General Appearance normal appearance, WD/WN, no apparent distress Eye Exam - bilateral eye normal exam, bilateral eye PERRL, bilateral eye EOMI Neck normal inspection, non-tender, supple, full range of motion Respiratory Status Yes: trachea midline, chest symmetrical, non tender chest. No: respiratory distress, tender on palpation, use of accessory muscles, pain on inspiration, pain on expiration, productive cough, non productive cough. Lung Sounds bilateral: normal breath sounds, lungs clear. Cardiovascular normal exam, regular rate/rhythm, no peripheral edema, normal peripheral pulses, tachycardia Gastrointestinal normal bowel sounds, normal exam, non tender, soft, no organomegaly, distended (very mildly distended but soft), no guarding, no rebound Extremities pedal edema Strength 4 Lower Ext (L), 4 Lower Ext (R), 5 Upper Ext (L), 5 Upper Ext (R) Neurologic alert, normal exam, no motor/sensory deficits, oriented x 3 Skin intact, normal color, warm/dry, pallor Medical Decision Making LABS/Meds/Orders Pt receiving controlled substance in ED? No Results/Orders Laboratory Tests 05/23/17 1125: Urine Color YELLOW, Urine Appearance CLOUDY, Urine pH 6.0, Ur Specific [place] 1.020, Urine Protein NEGATIVE, Urine Ketones NEGATIVE, Urine Blood NEGATIVE, Urine Nitrate NEGATIVE, Urine Bilirubin NEGATIVE, Urine Urobilinogen 1.0, Ur Leukocyte Esterase NEGATIVE, Urine WBC 3-5, Ur Squamous Epith Cells 20-50, Urine Bacteria 3+, Urine Mucus 1+, Urine Yeast 1+, Urine Glucose NEGATIVE 05/23/17 1043: Troponin I < 0.02 05/23/17 1030: Sodium 139, Potassium 3.5, Chloride 106, Carbon Dioxide 28, BUN 11, Creatinine 0.7, Estimated Creat Clear 86, Estimated GFR (MDRD) 82, Glucose 146 H, Calcium 7.6 L, Total Bilirubin 0.2, AST 10 L, ALT 12, Alkaline Phosphatase 98, Total Protein 5.6 L, Albumin 1.3 L, Globulin 4.3 H, Albumin/Globulin Ratio 0.3 L, Lipase 67 L, WBC 7.6, RBC 3.63 L, Hgb 10.1 L, Hct 31.8 L, MCV 87.5, RDW 13.9 , Plt Count 730 H, MPV 6.8 L, Gran % 74.5, Gran # 5.7, Lymphocytes % 17.8, Monocytes % 5.5, Eosinophils % 2.0, Basophils % 0.2, Lymphocytes # 1.4, Monocytes # 0.4, Eosinophils # 0.2, Basophils # 0.0, PUBS MCHC 31.8, MCH 27.8 Current Medication Orders Sig/Roberto Carlos Start time Last Medication Dose Route Stop Time Status Admin Sodium Chloride 10 ML PRN PRN 05/23 1030 AC IV 05/24 1022 Orders Procedure Date/time Status DIET-NOTHING BY MOUTH 05/23 L Active DIARRHEA PANEL, PCR 05/23 1127 Active CULTURE, URINE 05/23 1125 Active ELECTROCARDIOGRAM REQUEST 05/23 1043 Active TROPONIN I 05/23 1043 Complete 12 LEAD EKG-BESSON (INITIAL) 05/[address] ABD/PELVIS REQ 05/23 1025 Complete IV SALINE LOCK 05/23 1025 Active URINALYSIS/COMPLETE 05/23 1025 Complete LIPASE 05/23 1025 Complete CBC WITH AUTO DIFF 05/23 1025 Complete CHEM 12 PROFILE 05/23 1025 Complete CM/EKG CM/EKG EKG rate, NSR, rhythm, no evid. of ischemic chgs, no ectopy, normal QRS, normal IL, normal EKG (NSR 98) XRAY/CT/US XRAY/CT/US CT interpretation by reviewed by me, discussed w/radiologist Time results known: 1122 CT Results abnormal, overall improvement of transverse colitis and diverticulitis on comparison to recent study; has some ansarca and increased stool in the cecum. Consult MD Physician Consult Time Called 1149 Reason Pt. Condition Comments Departure Departure Time of Disposition 1150 Disposition DC Home or Self Care(routine) Clinical Impression Primary Impression: Abdominal pain Qualifiers: Abdominal location: lower abdomen, unspecified Qualified Code: R10.30 - Lower abdominal pain, unspecified Condition STABLE Referrals Julio FLETCHER,Dominic (Family) Patient Instructions Acute Abdominal Pain Additional Instructions Drink Ensure, one to two cans daily, as a supplement to your usual diet; eat a little yogurt daily; see Dr. Bailey/his [employer]; keep appointment already set up for three days from now; see Dr. Kim next week as well; bring stool sample back for outside testing with results to be called to Dr. Kim but tell Dr. Bailey these samples were ordered so he can also check these results when you see him or his [employer] next week. Your urine does not appear infected today, so no need for antibiotics. Discharge Counseling Counseled pt/family regarding diagnosis, test results, home care, follow up needs ED Critical Care Critical Care No at 1201
[2017-05-23 10:43] LABS: HEMOGLOBIN 10.1 g/dL (12.2-16.2); LYMPH # 1.4 K/mm3 (0.7-4.5); LYMPH % 17.8 % (10-50.0)
[2017-05-23 11:37] LABS: URINE BILIRUBIN - DIPSTICK NEGATIVE (NEG); URINE BLOOD NEGATIVE (NEG)
--- NOTE | 2017-05-23 11:49 | RADIOLOGY REPORT PS360 ---
CT ABD PELVIS W/O CONTRAST COMPARISON: CT scan abdomen pelvis 05/07/2017 HISTORY: Abdominal pain follow-up suspected colitis and diverticulitis TECHNIQUE: Multiaxial scans obtained from the hemidiaphragms the pelvic floor were performed without IV or oral contrast. Sagittal coronal reformats were evaluated as well. FINDINGS: There is a small left pleural effusion which was not seen on the previous study. The liver spleen pancreas and gallbladder appear grossly normal. Stomach is moderately distended with ingested food particles in addition to a large amount gas. The kidneys are normal in size and again noted are parapelvic cyst of the left collecting system and a somewhat extrarenal pelvis left side. There is diffuse hazy edema of the subcutaneous tissues consistent with generalized anasarca probably from fluid overload. Small bowel appears normal and the appendix is normal. There is large amount stool in the cecum and lower ascending colon. There has been interval improvement in the diffuse wall thickening of the transverse colon suggestive of colitis. Also there has been interval improvement in the appearance of the sigmoid colon suggesting resolving focal diverticulitis. Again noted is a small left ovarian cyst, uterus is normal. The urinary bladder is partially decompressed. IMPRESSION: Resolving colitis of the transverse colon and diverticulitis of the sigmoid colon but there does appear to be mild generalized anasarca of the subcutaneous tissues probably secondary to fluid overload following treatment of the above two conditions.
[2017-05-23 11:57] LABS: URINE SQUAMOUS CELLS 20-50 #/hpf (0-5)
[2017-05-23 12:19] VITALS: BP 145/88
== END 2017-05-23 12:20 | disposition home or self-care (01) ==
LOC: ER 10:17
PROVIDERS: Emergency Medicine
DX: R10.30 Lower abdominal pain, unspecified (principal); I10 Essential (primary) hypertension; Z79.899 Other long term (current) drug therapy

== ENCOUNTER 2017-06-03 05:38 | Inpatient (IN) | payer MEDICARE ==
[~2017-06-03] VITALS: Ht 162.6 cm; Wt 61.8 kg
[~2017-06-03 05:38] MED LIST changes: +LASIX20 MG PO
[2017-06-03 05:50] VITALS: BP 137/57
--- NOTE | 2017-06-03 06:17 | Emergency Room Report ---
History of Present Illness Time Seen by [id number] Presenting Problem in Triage Pt arrived:Wheelchair Presenting Problem:DIARRHEA X 1 MONTH. 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 N Clinical Suspician of Infection? Y Mental Status: 1 - Regular (Normal Baseline) Sepsis Risk:Possible Sepsis Risk Have you (or family members/close friends) recently traveled outside the [place]? N If Yes, where/when: Have you had exposure to infectious disease within the past month? N TB? Other? Specify: Source patient, RN notes reviewed, family, old records Exam Limitations no limitations Comment pt with abd pain with diarrhea over the last few weeks had been admitted with abn ct and diarrhea panel and has seen gi as op with no clear dx- pt with no fever or blood in stool- pt presented sec to ongoing sx- Cardiac Chest Pain Chest pain indicative of cardiac No Timing/Duration this evening Severity moderate ALLERGIES Coded Allergies: Penicillins (Severe, 05/05/17) Sulfa (Sulfonamide Antibiotics) (Intermediate, rash 03/25/17) Home Medications Active Scripts POTASSIUM CHL (Potassium Chloride) 20 MEQ PO BID #60 TAB Prov: 05/14/17 L. ACIDOPHILUS/STREPT/LA P-KIYA (Risaquad Capsules) 1 CAP PO AC #90 CAPSULE Prov: 05/14/17 Device (Commode, Bedside) 1 UNIT XX UD #1 DEV Prov: 05/14/17 Reported Medications Ramipril (Ramipril 5MG) 5 MG PO BID Lorazepam (Ativan 1MG) 1 MG PO TIDP PRN ANXIETY Furosemide (Lasix) 20 MG PO DAILY (Alva FLETCHER,[place]) History Medical History General CAD? No Angina: No [place]: No Hypertension? Yes Hyperlipidemia? No CHF? No DVT? No PE? No COPD? No Asthma? No Anemia? No GERD? No Gastric ulcers? No GI Bleed? No Hernia? No Thyroid Problems? No Hypothyroidism? No CVA? No Seizures? No Diabetes? No Renal Insuffiency? No End Stage Renal Disease? No UTI? No Stones? No GB Disease: No Nephritic Syndrome? No Asplenia? No Hepatitis? Yes Sickle Cell Disease? No Arthritis? Yes Migraines? No Cataracts? No Glaucoma? No MRSA? No HIV? No TB? No Anxiety? Yes Depression? No Cancer? No More? No Immunization Hx DT/Tetanus > 10 Years Ago Pneumonia Refuses Surgical Hx Previous Surgery?Y WISDOM TEETH Family History Family Hx Diabetes No CAD No Hypertension Yes Hyperlipidemia Yes Cancer Yes TB No Social History Smoking Hx Smoker: Never Smoker Tobacco: No Alcohol Alcohol: No Drugs none ([place] MD) Review of Systems All Other Systems Reviewed and Negative Constitutional denies fever Eyes denies drainage ENT denies: ear discharge, epistaxis, throat pain. Respiratory denies cough, denies shortness of breath, denies wheezing Cardiovascular denies chest pain, denies syncope Gastrointestinal see HPI, abdominal pain, diarrhea, nausea, denies vomiting Genitourinary denies: dysuria, frequency, hesitancy, hematuria. Musculoskeletal denies back pain, denies joint pain, denies joint swelling, denies neck pain Skin denies rash Psychiatric/Neurological denies headache, denies seizure ([place] Calle MD) Physical Exam Vital Signs Vital Signs Date Time Temp Pulse Resp B/P Pulse O2 O2 Flow FiO2 Ox Delivery Rate 06/03 0923 115 20 141/59 97 06/03 0741 106 16 114/50 96 06/03 0638 98.4 102 14 139/55 98 06/03 0550 97.8 109 14 137/57 97 - WBC >12,000 or <4,000 or 10% bands? 2 or more SIRS Criteria Met? B/P:114/50 MAP:83 Creatinine >2.0? UA output<0.5ml/kg/hr for 2 hrs? Platelet count >100,000? Lactate >2.0mmol/1? INR >1.2 or PTT > than 60 sec? Evidence of Organ Dysfunction? Provider documented clinical suspician of infection? Y Sepsis Criteria Count: 0 Sepsis Risk: Possible Sepsis Risk General Appearance no apparent distress Eye Exam - bilateral eye PERRL, bilateral eye EOMI Comment no icterus Ear, Nose, Throat normal ENT inspection Neck supple Respiratory Status No: respiratory distress. Cardiovascular regular rate/rhythm Peripheral Pulses Pulses normal Yes Gastrointestinal soft, no organomegaly, no pulsatile mass, no guarding, no rebound, tenderness Back no CVA tenderness Extremities normal inspection Strength 4 Upper Ext (L), 4 Upper Ext (R), 4 Lower Ext (L), 4 Lower Ext (R) Neurologic alert, sample hand II-XII nml as tested, no motor/sensory deficits Reflexes Reflexes normal No Mental status normal mood/affect Skin intact (Alva FLETCHER,[place]) Medical Decision Making LABS/Meds/Orders Pt receiving controlled substance in ED? No Results/Orders Laboratory Tests 06/03/17 0807: Stl Aeromonas (PCR) NOT DETECTED, Stl Cyclospora species NOT DETECTED, Stool Rotavirus (PCR) NOT DETECTED, Stool Astrovirus (PCR) NOT DETECTED, Stool Campylobacter PCR NOT DETECTED, Stool Cryptosporidium PCR NOT DETECTED, Stl E. histolytica PCR NOT DETECTED, Stool Giardia Lamblia PCR NOT DETECTED, Stl P. shigelloides PCR NOT DETECTED, Stool Sapovirus (PCR) NOT DETECTED, Stool Vibrio (PCR) NOT DETECTED, Stl Vibrio cholerae PCR NOT DETECTED, Stl Norovirus GI/GII PCR NOT DETECTED, Adenovirus (PCR) NOT DETECTED, C. difficile Tox (PCR) NOT DETECTED, E. coli (PCR) NOT DETECTED, Salmonella (PCR) NOT DETECTED, Yersinia ( PCR) NOT DETECTED 06/03/17 0652: Urine Color YELLOW, Urine Appearance CLEAR, Urine pH 6.5, Ur Specific [place] 1.010, Urine Protein NEGATIVE, Urine Ketones NEGATIVE, Urine Blood TRACE-INTACT, Urine Nitrate NEGATIVE, Urine Bilirubin NEGATIVE, Urine Urobilinogen 0.2, Ur Leukocyte Esterase NEGATIVE, Urine RBC OCC, Urine WBC OCC, Ur Squamous Epith Cells TNTC, Urine Bacteria 2+, Urine Mucus 1+, Urine Glucose NEGATIVE 06/03/1715: Lipase 47 L, WBC 7.9, RBC 3.47 L, Hgb 9.5 L, Hct 29.8 L, MCV 85.9, RDW 16.3, Plt Count 719 H, Gran % 72.4, Gran # 5.7, Lymphocytes % 19.3, Monocytes % 8.3, Lymphocytes # 1.5, Monocytes # 0.7, PUBS MCHC 31.9 06/03/17 0615: Sodium 136, Potassium 4.7, Chloride 100, Carbon Dioxide 28, BUN 9, Creatinine 0.7, Estimated Creat Clear 79, Estimated GFR (MDRD) 82, Glucose 102, Calcium 8.6 , Total Bilirubin 0.4, AST 13 L, ALT 14, Alkaline Phosphatase 125 H, Total Protein 6.2 L, Albumin 1.8 L, Globulin 4.4 H, Albumin/Globulin Ratio 0.4 L, ESR >120 H, MCH 27.4 Current Medication Orders Sig/Roberto Carlos Start time Last Medication Dose Route Stop Time Status Admin Sodium Chloride 1,000 ML .Q10H 06/03 0630 AC 06/03 IV 06/03 1820 0624 Sodium Chloride 10 ML PRN PRN 06/03 0630 AC IV 06/04 0620 Sodium Chloride 1,000 ML .STK-MED ONE 06/03 0621 DC IV Sodium Chloride 10 ML PRN PRN 06/03 0615 AC IV 06/04 0610 Orders Procedure Date/time Status DIET-NOTHING BY MOUTH 06/03 B Complete Decision to admit 06/03 1041 Active URINALYSIS/COMPLETE 06/03 0741 Complete CULTURE, URINE 06/[address] SCAN REQ 06/03 0636 Complete DIARRHEA PANEL, PCR 06/03 0621 Complete LIPASE 06/03 0620 Complete SED RATE 06/03 0620 Complete IV SALINE LOCK 06/03 0610 Active CBC WITH AUTO DIFF 06/03 06 Complete CHEM 12 PROFILE 06/03 0610 Complete XRAY/CT/US XRAY/CT/US CT abdomen, pelvis CT interpretation by discussed w/radiologist Time results known: 805 CT Results abnormal (see report) (Alva FLETCHER,[place]) Progress - 9:00 AM: At shift change, patient report received from Dr. Calle, and care of the patient assumed by me at this time. Dr. Kim requested that our radiologist interpreted the CT scan in addition to the V-rad reading and then surgical consultation. Radiologist reading is consistent with a pelvic abscess of uncertain origin. Recommend pelvic ultrasound and CT scan with IV and oral contrast. Case discussed with Dr. Garay who says he will consult, patient is appropriate to be admitted here, recommends the above noted tests. Discussed with patient and with Dr. Kim. Dr. Kim requests no antibiotics at this time. (Hermes FLETCHER, [place]) Departure Departure Time of Disposition 0755 Disposition Still a Patient Clinical Impression Primary Impression: Colonic diverticular abscess Condition STABLE Referrals Dominic Kim MD (Family) discussed with dr tracy ED Critical Care Critical Care No (North Calle MD) at [phone] at 110
[2017-06-03 06:21] LABS: HEMOGLOBIN 9.5 g/dL (12.2-16.2)
[2017-06-03 06:24] LABS: LYMPH # 1.5 K/mm3 (0.7-4.5); LYMPH % 19.3 % (10-50.0)
[2017-06-03 08:08] LABS: AEROMONAS NOT DETECTED (NOT DETECTE); ASTROVIRUS NOT DETECTED (NOT DETECTE); CYCLOSPORA CAYETANENSIS NOT DETECTED (NOT DETECTE); E COLI O157 NOT DETECTED (NOT DETECTE); ENTEROAGGREGATIVE E COLI NOT DETECTED (NOT DETECTE); ENTEROPATHOGENIC E COLI NOT DETECTED (NOT DETECTE); ENTEROTOXIGENIC E COLI NOT DETECTED (NOT DETECTE); NOROVIRUS NOT DETECTED (NOT DETECTE); SAPOVIRUS NOT DETECTED (NOT DETECTE); SHIGA-LIKE TOXIN PROD. E COLI NOT DETECTED (NOT DETECTE); SHIGELLA/ENTEROINVASIVE E COLI NOT DETECTED (NOT DETECTE); VIBRIO CHOLERAE NOT DETECTED (NOT DETECTE)
[2017-06-03 08:14] LABS: URINE BILIRUBIN - DIPSTICK NEGATIVE (NEG); URINE BLOOD TRACE-INTACT (NEG)
[2017-06-03 08:29] LABS: URINE SQUAMOUS CELLS TNTC #/hpf (0-5)
--- NOTE | 2017-06-03 09:25 | RADIOLOGY REPORT PS360 ---
CT ABD PELVIS W/O CONTRAST CLINICAL INDICATION: Abdominal pain, diverticulitis ABD PAIN ORDERING PHYSICIAN: [place] Calle MD PATIENT AGE: 72 years COMPARISON: 05/23/2017 TECHNIQUE: Axial images obtained with sagittal and coronal reformats. PROCEDURE: Oral Contrast: None IV Contrast: None . FINDINGS: Lung bases are clear. The liver, spleen, adrenal glands, and pancreas have an unremarkable unenhanced CT appearance. Gallbladder is distended. There may be a few gallstones. Ultrasound may confirm. There are bilateral parapelvic renal cysts more extensive on the left compared to the right. No obstructing renal or ureteral calculi. No evidence of aortic aneurysm. No evidence of appendicitis, intestinal obstruction, or free air. There is thickening of the sigmoid colon as before. There is persistent thickening of the descending colon consistent with colitis Mild persistent diverticulitis is considered. There is colonic diverticulosis. There is a persistent 5 x 4 cm complex cystic lesion in the left adnexa. This now contains some gas suspicious for an abscess. Repeat study with IV and adequate oral contrast may confirm.. This could be related to 2 different processes such as an ovarian cyst with a developing abscess. Pelvic ultrasound recommended for further evaluation as well. No free air apparent. No acute bony anomalies. IMPRESSION: 1. Persistent thickening of the descending colon suggesting colitis. 2. Persistent thickening of the sigmoid colon consistent with diverticulitis. Small amount of gas is now present in the left adnexal cystic area suspicious for an underlying abscess. Consider pelvic ultrasound. Repeat CT scan with IV and oral contrast may also be of further value.
[2017-06-03 13:36] VITALS: BP 144/50
[2017-06-03 13:56] VITALS: BP 153/57
--- NOTE | 2017-06-03 15:39 | CONSULT NOTE ---
Standard Demographics Patient Demo Date of Consultation: 06/03/17 Referring Provider: Dominic Kim MD Reason for Consultation: pelvic abscess PRIMARY DIAGNOSIS: PELVIC ABCESS Allergies: Coded Allergies: Penicillins (Severe, 05/05/17) Sulfa (Sulfonamide Antibiotics) (Intermediate, rash 03/25/17) History of Present Illness Chief Complaint: Diarrhea History of Present Illness: Patient is a 72-year-old white female. She states that since January she has had problems with diarrhea and change in her bowel habits. Reportedly she had a positive Cologuard. Her symptoms of been ongoing and quite significant. Patient states that she was treated with antibiotics for a sinus infection several months ago. She had ongoing persistent symptoms of diarrhea and lower abdominal discomfort. She had seen gastroenterology and was managed medically and plan was for colonoscopy earlier this month. However, the patient was admitted on 05/05/17 through 05/14/17. During that hospitalization she was diagnosed with non- complicated diverticulitis by CT scan and transverse colon colitis. She had enteropathogenic E. coli on stool studies and was treated with antibiotics. She also had a urinary tract infection. She has had ongoing continued symptoms and presented to the emergency department earlier today. She underwent a CT scan of the abdomen and pelvis without any contrast whatsoever. This revealed some thickening of the descending colon and sigmoid colon consistent with colitis/ diverticulitis. However, previously noted cystic area near the LEFT adnexa now revealed air-fluid level consistent with possible abscess. Based on the CT scan without contrast it was difficult to discern whether this was diverticular abscess. Patient was admitted for inpatient management and surgical consultation and additional imaging. Patient denies any severe pain. She does state that she' s had a "pressure" last week in the lower abdomen. Past Medical History Reports: hypertension. Surgical History Previous Surgery?Y WISDOM TEETH Allergies Coded Allergies: Penicillins (Severe, 05/05/17) Sulfa (Sulfonamide Antibiotics) (Intermediate, rash 03/25/17) Medications: Active Scripts POTASSIUM CHL (Potassium Chloride) 20 MEQ PO BID #60 TAB Prov: 05/14/17 L. ACIDOPHILUS/STREPT/LA P-KIYA (Risaquad Capsules) 1 CAP PO AC #90 CAPSULE Prov: 05/14/17 Device (Commode, Bedside) 1 UNIT XX UD #1 DEV Prov: 05/14/17 Reported Medications Ramipril (Ramipril 5MG) 5 MG PO BID Lorazepam (Ativan 1MG) 1 MG PO TIDP PRN ANXIETY Furosemide (Lasix) 20 MG PO DAILY Smoking Hx Tobacco: No Smoker: Never Smoker Type: N/A Packs/day: N/A Are you/the child exposed to second-hand smoke: No Alcohol Alcohol: No Hx of Drug Use Drug Use? No Review of Systems Constitutional Positive for: fatigue, lethargy, malaise, weak. No: chills. Skin No: bruising. Immune/allergy No: allergy. Eyes No: vision loss. ENT No: hearing loss. Respiratory No: shortness of air. Cardiovascular No: chest pain. GI Positive for: abdomen, diarrhea. (female) No: hematuria. Musculoskeletal No: extremity swelling. Heme No: adenopathy. Endocrine No: cold intolerance. Neurological No: change in LOC. Physical Exam VS/I&O Vital Signs Date Time Temp Pulse Resp B/P Pulse O2 O2 Flow FiO2 Ox Delivery Rate 06/03 1356 98.4 111 16 153/57 100 ROOM AIR 06/03 1336 105 06/03 1336 99.2 105 18 144/50 06/03 1336 99 ROOM AIR 06/03 1121 99.2 105 18 144/50 99 06/03 1100 99.2 105 18 144/50 99 06/03 0923 115 20 141/59 97 06/03 0741 106 16 114/50 96 06/03 0638 98.4 102 14 139/55 98 06/03 0550 97.8 109 14 137/57 97 I&O 06/03 0700 Intake Total Output Total Balance Patient 154 lb Weight Exam General appearance no acute distress, alert Respiratory clear to auscultation Cardiovascular normal heart sounds Abdomen soft Findings/Data On examination her abdomen is soft. She has hyperactive bowel sounds. She has some minor subjective tenderness guarding or rebound in the LEFT lower quadrant. Plan Plan: His unclear as to the etiology of the patient's symptoms and radiographic findings. She is scheduled undergo CT scan with contrast. I discussed this with radiology. Plan for IV and oral contrast with possible rectal contrast if needed. Also patient is undergo pelvic ultrasound to better differentiate if this appears to be adnexal etiology or colonic. If this is consistent with abscess perforated diverticulitis will need likely CT-guided drain placement. Would recommend initiating broad-spectrum antibiotics for potential complicated diverticulitis. at [phone]
--- NOTE | 2017-06-03 15:42 | RADIOLOGY REPORT PS360 ---
US PELVIS (NO FETUS) HISTORY: pelvic abscess, ? ovarian source vs diverticulitis ORDERING PHYSICIAN: Dominic Kim MD PATIENT AGE: 72 years COMPARISON: CT scan of the same day FINDINGS: Transabdominal images are performed. The uterus is 6 x 3 x 4.6 cm and has an unremarkable appearance. The right ovary is not identified. Complex area of echogenicity is present in the left adnexa is a complex cystic lesion noted measuring 6.8 x 4.5 cm. There is fluid echogenicity anteriorly with heterogeneous slightly hyperechoic area posteriorly which measures 5.2 x 2.8 cm.. Scans are examined back to 09/13/2014. On that study there was a left ovarian cyst. Left ovarian cyst is also been present at 05/07/2017 and 05/23/2017 exam as well as a 06/03/2017 exam. There is however associated soft tissue density with the cyst noted on today's exam. The soft tissue density does contain some gas and is suspicious for an adjacent abscess neck to the ovarian cyst. Follow-up CT is to be performed with IV and oral contrast. IMPRESSION: Complex left adnexal mass with area of fluid echogenicity. Posterior to the fluid echogenicity is heterogeneous echogenicity probably related to an underlying abscess posterior to a left ovarian cyst.
--- NOTE | 2017-06-03 16:36 | HISTORY AND PHYSICAL REPORT ---
Demographics: Admit date: 06/03/17 Chief complaint: Diarrhea PRIMARY DIAGNOSIS: suspected diverticular abscess Allergies: Coded Allergies: Penicillins (Severe, 05/05/17) Sulfa (Sulfonamide Antibiotics) (Intermediate, rash 03/25/17) History of present illness: History of present illness: 72-year-old female with recent hospitalization from May 05 to May 14 for diverticulitis and colitis presented to the emergency department with complaint of persistent diarrhea. Since discharge from the hospital in early May patient is continued to have loose stools although now they're at the point where she is having a bowel movement every 90 minutes. She has been seen as an outpatient by gastroenterology and is scheduled for colonoscopy at the end of June. During her hospitalization earlier in the month she did have E. coli with in her stool. Workup was begun in the emergency department. Diarrhea panel was negative. Noncontrasted CT showed a LEFT adnexal mass suspicious for pelvic versus diverticular abscess. Patient has been admitted for further workup to include transvaginal ultrasound and contrasted CT. Surgical consultation has been placed. Patient was evaluated by Dr. Garay. She denies fevers or chills. Her white blood cell count was in the normal range. Past medical history: Family HX Family Hx Insignificant No Diabetes No CAD No Hypertension Yes Hyperlipidemia Yes Cancer Yes TB No Immunization HX DT/Tetanus > 10 Years Ago Pneumonia Refuses TB Test in last year No General CAD? No Angina: No [place]: No Hypertension? Yes Hyperlipidemia? No CHF? No DVT? No PE? No COPD? No Asthma? No Anemia? No GERD? No Gastric ulcers? No GI Bleed? No Hernia? No Thyroid Problems? No Hypothyroidism? No CVA? No Seizures? No Diabetes? No Renal Insuffiency? No UTI? No Stones? No GB Disease: No Nephritic Syndrome? No Asplenia? No Hepatitis? Yes Sickle Cell Disease? No Arthritis? Yes Migraines? No Cataracts? No Glaucoma? No MRSA? No HIV? No TB? No Anxiety? Yes Depression? No Cancer? No More? No Past Surgical HX Previous Surgery?Y WISDOM TEETH Current home meds: Active Scripts POTASSIUM CHL (Potassium Chloride) 20 MEQ PO BID #60 TAB Prov: 05/14/17 L. ACIDOPHILUS/STREPT/LA P-KIYA (Risaquad Capsules) 1 CAP PO AC #90 CAPSULE Prov: 05/14/17 Device (Commode, Bedside) 1 UNIT XX UD #1 DEV Prov: 05/14/17 Reported Medications Ramipril (Ramipril 5MG) 5 MG PO BID Lorazepam (Ativan 1MG) 1 MG PO TIDP PRN ANXIETY Furosemide (Lasix) 20 MG PO DAILY Social Hx: Smoking HX Tobacco No Type N/A Packs/day N/A Are you/the child exposed to second-hand smoke: No Alcohol Alcohol: No Hx of Drug Use Drug Use? No Patien't marital status is Review of systems: Constitutional weakness. No: chills, diaphoresis, fever. Respiratory no symptoms reported. Cardiovascular no symptoms reported Gastrointestinal/Abdominal see HPI Genitourinary no symptoms reported. Musculoskeletal no symptoms reported. Neurological Yes: no symptoms reported. Exam: Lab data for last 24 hours: Laboratory Tests 06/03/17 0807: Stl Aeromonas (PCR) NOT DETECTED, Stl Cyclospora species NOT DETECTED, Stool Rotavirus (PCR) NOT DETECTED, Stool Astrovirus (PCR) NOT DETECTED, Stool Campylobacter PCR NOT DETECTED, Stool Cryptosporidium PCR NOT DETECTED, Stl E. histolytica PCR NOT DETECTED, Stool Giardia Lamblia PCR NOT DETECTED, Stl P. shigelloides PCR NOT DETECTED, Stool Sapovirus (PCR) NOT DETECTED, Stool Vibrio (PCR) NOT DETECTED, Stl Vibrio cholerae PCR NOT DETECTED, Stl Norovirus GI/GII PCR NOT DETECTED, Adenovirus (PCR) NOT DETECTED, C. difficile Tox (PCR) NOT DETECTED, E. coli (PCR) NOT DETECTED, Salmonella (PCR) NOT DETECTED, Yersinia ( PCR) NOT DETECTED 06/03/17 0652: Urine Color YELLOW, Urine Appearance CLEAR, Urine pH 6.5, Ur Specific [place] 1.010, Urine Protein NEGATIVE, Urine Ketones NEGATIVE, Urine Blood TRACE-INTACT, Urine Nitrate NEGATIVE, Urine Bilirubin NEGATIVE, Urine Urobilinogen 0.2, Ur Leukocyte Esterase NEGATIVE, Urine RBC OCC, Urine WBC OCC, Ur Squamous Epith Cells TNTC, Urine Bacteria 2+, Urine Mucus 1+, Urine Glucose NEGATIVE 06/03/17 0615: Lipase 47 L, WBC 7.9, RBC 3.47 L, Hgb 9.5 L, Hct 29.8 L, MCV 85.9, RDW 16.3, Plt Count 719 H, Gran % 72.4, Gran # 5.7, Lymphocytes % 19.3, Monocytes % 8.3, Lymphocytes # 1.5, Monocytes # 0.7, PUBS MCHC 31.9 06/03/17 0615: Sodium 136, Potassium 4.7, Chloride 100, Carbon Dioxide 28, BUN 9, Creatinine 0.7, Estimated Creat Clear 79, Estimated GFR (MDRD) 82, Glucose 102, Calcium 8.6 , Total Bilirubin 0.4, AST 13 L, ALT 14, Alkaline Phosphatase 125 H, Total Protein 6.2 L, Albumin 1.8 L, Globulin 4.4 H, Albumin/Globulin Ratio 0.4 L, ESR >120 H, MCH 27.4 Microbiology 06/03 0652 URINE CC: Urine Culture - RECD Admission vital signs: 1ST Vital Signs Result Date Time Pulse Ox 97 06/03 0550 B/P 137/57 06/03 0550 Temp 97.8 06/03 0550 Pulse 109 06/03 0550 Resp 14 06/03 0550 O2 Delivery ROOM AIR 06/03 1336 Exam General appearance: normal appearance, alert, awake Eyes: normal exam, anicteric ENT: normal exam, mucous membranes moist Neck: normal inspection, non-tender, no carotid bruit, no JVD Cardiovascular: normal exam Respiratory: normal exam, clear to auscultation ABD: normal exam, non-distended, normal bowel sounds Plan: Problem List 1. Colonic diverticular abscess Plan: At present we are waiting results of her CT scanning of the abdomen and pelvis with IV and oral contrast. Intravenous antibiotics have been started (Invanz). Further disposition will be made in the morning once all testing is completed. at 1635
--- NOTE | 2017-06-03 17:01 | RADIOLOGY REPORT PS360 ---
CT ABD PELVIS W/ CONTRAST CLINICAL INDICATION: POSSIBLE ABCESS, POSSIBLE DIVERTICULITIS VS OVARIAN SOURCE ORDERING PHYSICIAN: Dominic Kim MD PATIENT AGE: 72 years COMPARISON: Multiple previous exams including 06/03/2017, 05/23/2017, 05/07/2017, 09/13/2014 TECHNIQUE: Axial images obtained with sagittal and coronal reformats. PROCEDURE: Oral Contrast: Gastroview IV Contrast: 75 mg [id number]. FINDINGS: The lung bases are clear. The liver has a small area of decreased attenuation within the medial segment left hepatic lobe at approximately 5 mm nonspecific too small to characterize. Similar to 05/07/2017. Gallbladder is mildly distended. Spleen, adrenal glands, and pancreas are unremarkable. There are bilateral parapelvic renal cysts. No evidence of small bowel obstruction. There is persistent thickening of the splenic flexure , descending colon and sigmoid colon. There is diffuse thickening is present involving the sigmoid colon with a more prominent area of thickening involving the posterior left aspect of the sigmoid colon adjacent to the left adnexal mass. There is a complex left adnexal mass measuring 5.4 x 4.2 cm. This is once again noted to have some peripheral gas along its inferior margin. The lesion is bilocular with the superior aspect of the lesion measuring 4 x 2 cm with an average Hounsfield measurement of 3 and the posterior aspect of the lesion measuring 3.9 x 2 cm with an average Hounsfield measurement of 20. Small amount peripheral gas is noted within the posterior aspect of the lesion. Small amount gas is also noted along the superior aspect of the lesion just posterior to the thickened sigmoid colon. No free pelvic fluid is evident. IMPRESSION: Complex left adnexal cystic mass. Multiple previous exams are reviewed dating back to 09/13/2014. There was noted to be a left adnexal cystic lesion on the older exam of 09/13/2014. The current cystic left adnexal mass may represent a combination of the chronic left ovarian cyst along with a developing abscess posterior to the cyst which contains a small amount of peripheral gas. A small amount of gas is also noted posterior to the thickened portion of the sigmoid colon. THIS COLLECTION IS NOT AMENABLE TO PERCUTANEOUS DRAINAGE BY CT Colitis is suspected of the descending and sigmoid colon. There is however some focal nodular thickening of the sigmoid colon as well. While this may be related to focal inflammatory changes, neoplasm is also considered in the differential diagnosis. Colonoscopy may be of further value when the patient can tolerate.
[2017-06-03 19:16] VITALS: BP 134/60
[2017-06-03 21:57] VITALS: BP 134/60
[2017-06-04] VITALS (13 sets, daily range): BP systolic 149–172; BP diastolic 44–101
--- NOTE | 2017-06-04 07:03 | SURGEON PROGRESS NOTE ---
Subjective data Subjective data: WALTERMARIA M DE LA TORRE is a 72 F .Patient denies complaint of nausea and vomitting.She reports her last pain level as 0 on a 0-10 pain scale. Patient feels about the same. Had been passing liquid until a few hours ago after contrast from CT scan. CT results discussed with radiology. Patient needs new IV. Assessment findings Assessment Exam General appearance: normal appearance, alert ABD: soft Patient plan Diagnoses: Unclear as to etiology. Question refractory colitis vs. diverticulitis. "Abscess" not amenable to drainage. Will plan for careful flexible sigmoidoscopy today to better determine etiology and treatment. Risk of potential perforation is somewhat higher given ongoing pathology. Plan: Steroids
--- NOTE | 2017-06-04 07:50 | PHARMACY CLINIC NOTE ---
Patient Demographics Patient Demographics Admission date: 06/03/17 Date: 06/04/17 Time: 0750 Allergies Coded Allergies: Penicillins (Severe, 05/05/17) Sulfa (Sulfonamide Antibiotics) (Intermediate, rash 03/25/17) HEIGHT- FT: 5 IN: 4.00 K.803 VTE General Information Disclaimer The following section includes nursing documentation that has been pulled in for pharmacy review. Patient's VTE score: 1 Patient's VTE Risk: VERY LOW RISK Clinical trial participant? No VTE prophylaxis [id number] VTE prophylaxis ordered? Yes Type of prophylaxis/treatment: CHARI at 0750
--- NOTE | 2017-06-04 08:10 | ACUTE CARE PROGRESS NOTE (QUA) ---
Progress Notes Subjective Date 06/04/17 Time 0808 Patient/family reports: no complaints, diarrhea Objective Findings Last VS-Temp:98.1 B/P: 152/58 Pulse:75 Resp:16 SaO2:100 ROOM AIR Last weight lbs: 136 oz: 4 K.803 Method: Bed Scales Exam General appearance: alert, active, awake Cardiovascular: regular rate & rhythm Respiratory: clear to auscultation ABD: soft, no tenderness Assessment/Plan Problem List 1. Colonic diverticular abscess Patient condition Stable Plan: continue current care, consult surgeon This inpt stay is expected to cross 2 MNs from start of care Yes Comments: Flex sig today. Continue Invanz.
--- NOTE | 2017-06-04 10:42 | RADIOLOGY REPORT PS360 ---
CHEST PORTABLE-PICC PLACEMENT CLINICAL INDICATION: PICC LINE INSERTION ORDERING PHYSICIAN: Dominic Kim MD PATIENT AGE: 72 years COMPARISON: None FINDINGS: Left upper extremity PICC line has been inserted. The tip is not visible but is directed toward the neck. Unremarkable cardiovascular structures. The lungs are clear. No acute bony anomalies IMPRESSION: PICC line tip NOT in satisfactory position with the tip not visible but directed toward the neck
--- NOTE | 2017-06-04 10:44 | RADIOLOGY REPORT PS360 ---
CHEST PORTABLE-PICC PLACEMENT 10:28 AM CLINICAL INDICATION: REPOSITION ORDERING PHYSICIAN: Dominic Kim MD PATIENT AGE: 72 years COMPARISON: Previous exam same day 10:07 AM FINDINGS: Left upper extremity PICC line has been repositioned. The distal aspect of the PICC line is curled at the region of the brachiocephalic vein on the left with the tip in region of the subclavian vein. IMPRESSION: PICC line curled distally with the tip in the region of the subclavian vein
--- NOTE | 2017-06-04 11:34 | RADIOLOGY REPORT PS360 ---
FLUORO GUIDE FOR CV ACCESS HISTORY: PICC LINE PLACEMENT ORDERING PHYSICIAN: Dominic Kim MD PATIENT AGE: 72 years Fluoroscopy time: 38 seconds FINDINGS: Previously the PICC line was curled in the distal brachiocephalic vein. This had subsequently straightened out with the tip in the region of the cavoatrial area. Catheter was withdrawn approximately 3 cm and is in good position at the distal SVC region. IMPRESSION: Repositioning of PICC line with the tip now at the distal SVC
--- NOTE | 2017-06-04 13:17 | Operative Note ---
Endoscopy Report Date: 06/04/17 Preoperative diagnosis: Abdominal pain and diarrhea Procedure Type of procedure: Colonoscopy with biopsies Indications: Patient is a 72-year-old white female. She states that since January she has had problems with diarrhea and change in her bowel habits. Reportedly she had a positive Cologuard. Her symptoms of been ongoing and quite significant. Patient states that she was treated with antibiotics for a sinus infection several months ago. She had ongoing persistent symptoms of diarrhea and lower abdominal discomfort. She had seen gastroenterology and was managed medically and plan was for colonoscopy earlier this month. However, the patient was admitted on 05/05/17 through 05/14/17. During that hospitalization she was diagnosed with non-complicated diverticulitis by CT scan and transverse colon colitis. She had enteropathogenic E. coli on stool studies and was treated with antibiotics. She also had a urinary tract infection. She has had ongoing continued symptoms and presented to the emergency department yesterday. She underwent a CT scan of the abdomen and pelvis without any contrast whatsoever. This revealed some thickening of the descending colon and sigmoid colon consistent with colitis/diverticulitis. However, previously noted cystic area near the LEFT adnexa now revealed air-fluid level consistent with possible abscess. Based on the CT scan without contrast it was difficult to discern whether this was diverticular abscess. Patient was admitted for inpatient management and surgical consultation and additional imaging. She underwent CT scan with IV and oral contrast. This revealed findings consistent with LEFT colon thickening consistent with colitis with a 4 x 2 cm fluid pocket adjacent to LEFT adnexal cyst. Given the patient's ongoing symptoms and findings on CT scan plan was made for sigmoidoscopy for better diagnosis and management. Procedure: Consent was obtained and patient was taken to the endoscopy procedure room. She was positioned in a lateral decubitus position. Adequate sedation was achieved with anesthesia titration of propofol during the procedure. Variable stiffness Olympus colonoscope was inserted via the anus. Very careful advancement was performed mostly using irrigation with very minimal insufflation. There was noted to be inflammation throughout most notable in the sigmoid colon with inflamed tissue. There was induration and friability of the mucosa throughout the colon with some exudative tissue consistent with pseudomembranes. Colonoscope was actually able to be advanced to the cecum and the ileocecal valve and appendiceal orifice were clearly identified. There was some minimal sparing of the ascending colon however inflammatory changes began proximal to the hepatic flexure and were most pronounced in the distal sigmoid colon. Multiple biopsies were obtained throughout mostly in the sigmoid colon where there was significantly inflamed tissue. Thorough irrigation and suctioning was performed throughout. Colonoscope was withdrawn. Findings 1. Colitis Follow-Up Follow-Up: She had diffuse significant severe colitis of undetermined etiology most pronounced in the sigmoid colon. However, there were inflammatory changes from the distal ascending colon to the rectosigmoid. Recommend medical treatment for colitis and despite negative C. difficile treat for pseudomembranous colitis. Surgical therapy at this time would likely require subtotal colectomy. at 5086
[2017-06-04 18:55] LABS: AEROMONAS NOT DETECTED (NOT DETECTE); ASTROVIRUS NOT DETECTED (NOT DETECTE); CYCLOSPORA CAYETANENSIS NOT DETECTED (NOT DETECTE); E COLI O157 NOT DETECTED (NOT DETECTE); ENTEROAGGREGATIVE E COLI NOT DETECTED (NOT DETECTE); ENTEROPATHOGENIC E COLI NOT DETECTED (NOT DETECTE); ENTEROTOXIGENIC E COLI NOT DETECTED (NOT DETECTE); NOROVIRUS NOT DETECTED (NOT DETECTE); SAPOVIRUS NOT DETECTED (NOT DETECTE); SHIGA-LIKE TOXIN PROD. E COLI NOT DETECTED (NOT DETECTE); SHIGELLA/ENTEROINVASIVE E COLI NOT DETECTED (NOT DETECTE); VIBRIO CHOLERAE NOT DETECTED (NOT DETECTE)
[2017-06-05] VITALS (8 sets, daily range): BP systolic 126–163; BP diastolic 35–76
--- NOTE | 2017-06-05 07:15 | ACUTE CARE PROGRESS NOTE (QUA) ---
Progress Notes Subjective Date 06/05/17 Time 0714 Note Patient continues to have frequent small loose stools. Dr. Garay contacted me this morning and pathology of biopsies performed during colonoscopy showing inflammatory bowel disease. Patient is in no distress. She is sitting up eating breakfast this morning. Abdomen remains soft and nontender. Patient be started on intravenous steroids. I will contact Dr. Bailey of the gastrointestinal service for recommendations on additional treatments. Assess over the next 48 hours. May need to see Dr. Bailey on Friday as an inpatient if symptoms are not improving Objective Findings Last VS-Temp:98.6 B/P:126/57 Pulse:79 Resp:16 SaO2:97 ROOM AIR Last weight lbs:136 oz:4 K.803 Method:Bed Scales Assessment/Plan Problem List 1. Colonic diverticular abscess 2. Inflammatory bowel diseases (IBD) 3. Protein-calorie malnutrition, severe 4. Ovarian cyst Patient condition Stable Plan: continue current care, make medication changes This inpt stay is expected to cross 2 MNs from start of care Yes at 0715
--- NOTE | 2017-06-05 07:59 | SURGEON PROGRESS NOTE ---
Subjective data Subjective data: MARIA M OCHOA is a 72 F .Patient denies complaint of nausea and vomitting.She reports her last pain level as 0 on a 0-10 pain scale. Patient had some frequent bowel movements and gas yesterday after colonoscopy. Colonoscopy revealed significant inflammation from ascending colon to sigmoid with induration and exudate. Pathology this morning consistent with IBD. Assessment findings Assessment Exam General appearance: normal appearance, alert ABD: soft Comment: Mild tenderness in suprapubic location. Patient plan Plan: GI consult Additional data: Pathology reveals findings of IBD. Clinically more consistent with Crohn's colitis. Plan to initiate medical therapy. Hopefully with medical therapy fluid pocket resolves. At this point given the extent of inflammation and patient's nutritional status she would likely require subtotal colectomy with ostomy. May need surgical therapy at some point. at 0758
[2017-06-06 03:53] VITALS: BP 171/75
--- NOTE | 2017-06-06 07:13 | ACUTE CARE PROGRESS NOTE (QUA) ---
Progress Notes Subjective Date 06/06/17 Time 0709 Note Patient reports feeling better. Bowel movements are less watery and "more like sludge". She was able to sleep well during the day yesterday and slept well overnight as well. Her appetite is also improving. Vital signs reviewed. Patient appears well. She is sitting up in bed eating breakfast. Continue IV steroids. Patient is showing signs of improvement. Consult gastroenterology, who will be here Friday. Continue to monitor for signs of infection. DC IV fluids Assessment/Plan Problem List 1. Colonic diverticular abscess 2. Inflammatory bowel diseases (IBD) 3. Protein-calorie malnutrition, severe 4. Ovarian cyst Patient condition Improving Plan: continue current care This inpt stay is expected to cross 2 MNs from start of care Yes at 0712
--- NOTE | 2017-06-06 07:54 | SURGEON PROGRESS NOTE ---
Subjective data Subjective data: MARIA M OCHOA is a 72 F .Patient denies complaint of nausea and vomitting.She reports her last pain level as 0 on a 0-10 pain scale. Patient feeling better. Quite talkative. Ate all of low residue diet without nausea or pain. Bowel movements better. Assessment findings Assessment Exam General appearance: normal appearance, alert ABD: soft, no tenderness Patient plan Plan: Steroids, GI Consult at 3131
[2017-06-06 08:00] VITALS: BP 162/68
[2017-06-06 16:30] VITALS: BP 162/56
[2017-06-06 20:04] VITALS: BP 152/66
[2017-06-06 20:05] VITALS: BP 152/66
[2017-06-07 04:00] VITALS: BP 174/76
--- NOTE | 2017-06-07 07:10 | ACUTE CARE PROGRESS NOTE (QUA) ---
Progress Notes Subjective Date 06/07/17 Time 0707 Note Patient had a very good day yesterday and reported significant decrease in bowel movements with stool starting to become formed. However around midnight she developed a crampy lower quadrant abdominal pain and has had 4 bowel movements since midnight. She believes it may have been due to something she ate as we had a discussion yesterday about the possibility of developing lactose intolerance with inflammatory bowel disease. She has not had any fevers. She looks well and is awake. Lungs are clear. Heart has regular rate and rhythm. Abdomen is soft, no LEFT lower quadrant or RIGHT lower quadrant tenderness. No suprapubic tenderness. Continue steroids. Start lactose-free diet. Invanz 1 g IV daily Objective Findings Last VS-Temp:97.8 B/P:174/76 Pulse:71 Resp:18 SaO2:98 ROOM AIR Last weight lbs:136 oz:4 K.803 Method:Bed Scales I&O Past 24 Hrs-ending at 0700 06/07 0700 Intake Total 770 Output Total Balance 770 Assessment/Plan Problem List 1. Inflammatory bowel diseases (IBD) 2. Colonic diverticular abscess 3. Protein-calorie malnutrition, severe 4. Ovarian cyst Patient condition Stable Plan: continue current care This inpt stay is expected to cross 2 MNs from start of care Yes at 0709
--- NOTE | 2017-06-07 07:35 | SURGEON PROGRESS NOTE ---
Subjective data Subjective data: MARIA M OCHOA is a 72 F .Patient denies complaint of nausea and vomitting.She reports her last pain level as 0 on a 0-10 pain scale. Patient overall feeling better but states she has had some minor cramping overnight. Consumed all of low residue breakfast. Assessment findings Assessment Exam General appearance: normal appearance, alert ABD: soft Patient plan Plan: Steroids, GI Consult at 0735
[2017-06-07 08:12] VITALS: BP 157/62
[2017-06-07 16:00] VITALS: BP 173/49
[2017-06-07 19:55] VITALS: BP 194/79
[2017-06-07 19:56] VITALS: BP 194/79
[2017-06-07 22:27] VITALS: BP 188/78
[2017-06-08 03:46] VITALS: BP 178/87
[2017-06-08 06:17] LABS: LYMPH # 0.9 K/mm3 (0.7-4.5); LYMPH % 13.2 % (10-50.0)
[2017-06-08 06:24] LABS: HEMOGLOBIN 8.3 g/dL (12.2-16.2)
--- NOTE | 2017-06-08 07:30 | ACUTE CARE PROGRESS NOTE (QUA) ---
Progress Notes Subjective Date 06/08/17 Time 0728 Note Patient denies any further crampy abdominal pain. Volume of stool is larger and is starting to become more formed. She reports doing well during the day but still having bowel movements about every 2 hours overnight. She is tired this morning. She looks well. Abdomen is soft and nontender. Lungs are clear to auscultation. Heart has regular rate and rhythm. Lower extremities show 1+ trace edema. Transitioned to oral prednisone 60 mg daily. Gastrointestinal consult tomorrow. Oral Lasix today. Objective Findings Laboratory Tests 06/08/17 0600: WBC 6.5, RBC 3.06 L, Hgb 8.3 L, Hct 26.7 L, MCV 87.3, RDW 15.0, Plt Count 446 H, MPV 6.6 L, Gran % 82.0 H, Gran # 5.3, Lymphocytes % 13.2, Monocytes % 4.2, Eosinophils % 0.6, Basophils % 0.1, Lymphocytes # 0.9, Monocytes # 0.3, Eosinophils # 0.0, Basophils # 0.0, PUBS MCHC 30.9 L, MCH 27.0 Last VS-Temp:97.7 B/P:178/87 Pulse:76 Resp:18 SaO2:96 ROOM AIR Last weight lbs:136 oz:4 K.803 Method:Bed Scales Assessment/Plan Problem List 1. Inflammatory bowel diseases (IBD) 2. Colonic diverticular abscess 3. Protein-calorie malnutrition, severe 4. Ovarian cyst Patient condition Improving This inpt stay is expected to cross 2 MNs from start of care Yes at 0715
[2017-06-08 08:00] VITALS: BP 195/74
[2017-06-08 08:18] VITALS: BP 178/87; BP 195/74
--- NOTE | 2017-06-08 09:05 | SURGEON PROGRESS NOTE ---
Subjective data Subjective data: MARIA M OCHOA is a 72 F .Patient denies complaint of nausea and vomitting.She reports her last pain level as 0 on a 0-10 pain scale. Patient states her stools more formed "like pudding" yesterday. More frequent stools overnight. Assessment findings Assessment Exam General appearance: normal appearance, alert ABD: soft Patient plan Plan: Steroids, GI Consult at 0904
[2017-06-08 16:00] VITALS: BP 183/87; BP 184/86
[2017-06-08 19:52] VITALS: BP 186/67
[2017-06-08 20:00] VITALS: BP 186/67
[2017-06-09] VITALS (7 sets, daily range): BP systolic 173–197; BP diastolic 68–79
--- NOTE | 2017-06-09 07:07 | ACUTE CARE PROGRESS NOTE (QUA) ---
Progress Notes Subjective Date 06/09/17 Time 0705 Note Patient Continues to have frequent stools. She is tolerating regular diet although is avoiding foods with lactose. Dr. Bailey has been consult and for today for her diagnosis of inflammatory bowel disease. Patient is awake and alert. Abdomen is soft and nontender. Continue oral prednisone for inflammatory bowel disease with questionable diverticular abscess. Continue Invanz for her abscess. Once she has been evaluated by gastroenterology and she is possible discharge later today. Add Imodium for frequent stools Objective Findings Last VS-Temp:97.9 B/P:186/68 Pulse:65 Resp:16 SaO2:98 ROOM AIR Last weight lbs:136 oz:4 K.803 Method:Bed Scales Assessment/Plan Problem List 1. Inflammatory bowel diseases (IBD) 2. Colonic diverticular abscess 3. Protein-calorie malnutrition, severe 4. Ovarian cyst Patient condition Stable Plan: continue current care, gastroenterology consult This inpt stay is expected to cross 2 MNs from start of care Yes at 0707
--- NOTE | 2017-06-09 08:10 | SURGEON PROGRESS NOTE ---
Subjective data Subjective data: MARIA M OCHOA is a 72 F .Patient denies complaint of nausea and vomitting.She reports her last pain level as 0 on a 0-10 pain scale. Patient complains only of being hungry as she is on an NPO status for gastroenterology consult. Assessment findings Assessment Exam General appearance: normal appearance, alert ABD: soft, no tenderness Patient plan Plan: Steroids, GI Consult at 0809
--- NOTE | 2017-06-09 11:24 | CONSULT NOTE ---
Dr. Bailey' Consult History: History of Present Illness: Pt is a 72 year old femlale seen for consult today. She reports that since january she has had diarrhea since January, which is a change in her bowel habbit. She reports positive cologaurd. She has been on several antibiotics for recent sinus infections. She has been seen by GI, and had plans for colonoscopy however was admitted 05/05/2017-05/14/2017 with same complaint. She was found to have entropathagenic ecoli. and was treated with antibiotics. Was discharged but had continued symptoms and presented to the ED on 06/03/2017. CT scan with contrast showed left colon thickening c/w colitis with a 4x2 cm fluid pocket adjacent to adnexal cyst. The pt has been iV antibiotivs(invanz) Colonoscopy with Dr. Narvaez was completed on 06/04/2017 and was complete to the cecum, and was positive for severe colitis throughout but worse in the sigmoid. Biposy showed changes c/w IBD, no dysplasia. The pt has been on high dose steriods, and GI was consulted for futher plan of care. Past Medical History: Medical History: CAD? No Angina: No LA: No Hypertension? Yes Hyperlipidemia? No CHF? No DVT? No PE? No COPD? No Asthma? No Anemia? No GERD? No Gastric ulcers? No GI Bleed? No Hernia? No Thyroid Problems? No Hypothyroidism? No CVA? No Seizures? No Diabetes? No Renal Insuffiency? No UTI? No Stones? No GB Disease: No Nephritic Syndrome? No Asplenia? No Hepatitis? Yes Sickle Cell Disease? No Arthritis? Yes Migraines? No Cataracts? No Glaucoma? No MRSA? No HIV? No TB? No Anxiety? Yes Depression? No Cancer? No More? No Surgical history: Previous Surgery?Y WISDOM TEETH Medications: Active Scripts POTASSIUM CHL (Potassium Chloride) 20 MEQ PO BID #60 TAB Prov: 05/14/17 L. ACIDOPHILUS/STREPT/LA P-KIYA (Risaquad Capsules) 1 CAP PO AC #90 CAPSULE Prov: 05/14/17 Device (Commode, Bedside) 1 UNIT XX UD #1 DEV Prov: 05/14/17 Reported Medications Ramipril (Ramipril 5MG) 5 MG PO BID Lorazepam (Ativan 1MG) 1 MG PO TIDP PRN ANXIETY Furosemide (Lasix) 20 MG PO DAILY Allergies: Coded Allergies: Penicillins (Severe, 05/05/17) Sulfa (Sulfonamide Antibiotics) (Intermediate, rash 03/25/17) Family History: Family history: Postive for: unknown. Social History: Smoking Hx Tobacco: No Smoker: Never Smoker Type: N/A Packs/day: N/A Are you exposed to second hand No Alcohol: Alcohol: No Hx of Drug Use: Drug Use? No Physical Exam: Exam: General appearance: normal appearance, alert, no acute distress Eyes: normal exam ENT: normal exam Neck: normal inspection Cardiovascular: normal exam, no murmur Respiratory: normal exam, clear to auscultation ABD: non-distended, normal bowel sounds, soft, no tenderness, no guarding Extremities: normal exam Musculoskeletal: normal exam Skin: normal exam Neuro: normal exam Diagnosis(es): 1. Inflammatory bowel diseases (IBD) 2. Colonic diverticular abscess 3. Protein-calorie malnutrition, severe 4. Ovarian cyst Plan: 1) Colitis -Will order IBD panel, CRP, ESR, stool PCR. Reccomend pt stay on long steriod taper, such as; prednison 40mg q day x14 days, 30mg q day, x14 days, 20 mg q day x14 days, 10mg q day x 14 days. Start on FLORastore probiotic BID. ABX po, per PCP/dc physician.(Cipro/flagyl.) Please have pt follow up with My Sorto APRN in two weeks. Pt is scheduled for 05/24/2017 at 10:15 AM, in specality clinic. No immodium, can use bentyl 10mg q4-6h PRN. Can have low residue diet, no roughage. (TON RAMOS, MY)
[2017-06-09 14:57] LABS: AEROMONAS NOT DETECTED (NOT DETECTE); ASTROVIRUS NOT DETECTED (NOT DETECTE); CYCLOSPORA CAYETANENSIS NOT DETECTED (NOT DETECTE); E COLI O157 NOT DETECTED (NOT DETECTE); ENTEROAGGREGATIVE E COLI NOT DETECTED (NOT DETECTE); ENTEROPATHOGENIC E COLI NOT DETECTED (NOT DETECTE); ENTEROTOXIGENIC E COLI NOT DETECTED (NOT DETECTE); NOROVIRUS NOT DETECTED (NOT DETECTE); SAPOVIRUS NOT DETECTED (NOT DETECTE); SHIGA-LIKE TOXIN PROD. E COLI NOT DETECTED (NOT DETECTE); SHIGELLA/ENTEROINVASIVE E COLI NOT DETECTED (NOT DETECTE); VIBRIO CHOLERAE NOT DETECTED (NOT DETECTE)
[2017-06-09] MEDS ORDERED: CIPRO 500MG TA500 MG PO (15:08)
[2017-06-09] MEDS ORDERED: METRONIDAZOLE500 M2 PO (15:08)
[2017-06-09] MEDS ORDERED: BENTYL GENERIC10 MG PO (16:49)
[2017-06-10 02:10] VITALS: BP 178/70
[2017-06-10 04:27] VITALS: BP 171/72
--- NOTE | 2017-06-10 07:12 | Discharge Summary ---
Demographics Admit date: 06/03/17 Discharge date: 06/10/17 Discharge diagnoses Problem List 1. Inflammatory bowel diseases (IBD) 2. Colonic diverticular abscess 3. Protein-calorie malnutrition, severe 4. Ovarian cyst History of present illness History of present illness 72-year-old female with recent hospitalization from May 05 to May 14 for diverticulitis and colitis presented to the emergency department with complaint of persistent diarrhea. Since discharge from the hospital in early May patient is continued to have loose stools although now they're at the point where she is having a bowel movement every 90 minutes. She has been seen as an outpatient by gastroenterology and is scheduled for colonoscopy at the end of June. During her hospitalization earlier in the month she did have E. coli with in her stool. Workup was begun in the emergency department. Diarrhea panel was negative. Noncontrasted CT showed a LEFT adnexal mass suspicious for pelvic versus diverticular abscess. Patient has been admitted for further workup to include transvaginal ultrasound and contrasted CT. Surgical consultation has been placed. Patient was evaluated by Dr. Garay. She denies fevers or chills. Her white blood cell count was in the normal range. Patient was admitted and pelvic ultrasound and CT of the abdomen and pelvis with IV and oral contrast was performed. Pelvic ultrasound showed the adnexal mass and a smaller area behind the adnexal mass. This is believed to be a cyst in front of a possible abscess. CT scan was consistent with pelvic ultrasound. Patient was started on Invanz. She continued to have crampy abdominal pain with loose stools. Dr. Garay proceeded with colonoscopy with findings of friable colonic mucosa, evidence of pseudomembranes. Biopsies were performed. Diarrhea panel was repeated due to the presence of pseudomembranes and remained negative. On the the patient's biopsies returned with evidence of inflammatory bowel disease. Patient was started on Solu-Medrol intravenously. Within 24 hours patient noticed improvement in how she felt as well as decrease in bowel urgency. She remained on steroids the rest of her hospitalization. Patient also remained on Invanz during hospitalization. She was placed on low residue diet which she tolerated. Due to prolonged nature of the patient's symptoms gastroenterology was consulted. She was seen by the gastroenterology service on June 09 with findings as follows: Plan: 1) Colitis -Will order IBD panel, CRP, ESR, stool PCR. Reccomend pt stay on long steriod taper, such as; prednison 40mg q day x14 days, 30mg q day, x14 days, 20 mg q day x14 days, 10mg q day x 14 days. Start on FLORastore probiotic BID. ABX po, per PCP/dc physician.(Cipro/flagyl.) Please have pt follow up with My Sorto APRN in two weeks. Pt is scheduled for 05/24/2017 at 10:15 AM, in [facility] clinic. No immodium, can use bentyl 10mg q4-6h PRN. Can have low residue diet, no roughage. On June 10 patient was discharged home. She will follow-up with me in 3 days to review labs. Follow-up with gastroenterology as instructed above. Medications Medications: Discharge meds are as noted. Follow up Follow up in office in: 3 DAYS with: Dominic Kim MD at 0713
[2017-06-10] MEDS ORDERED: PREDNISONE20 MG PO (07:14)
[2017-06-10 07:47] VITALS: BP 110/40
[2017-06-10 09:37] LABS: Iron 45 ug/dL (27-139); Iron Saturation 19 % (15-55); UIBC 194 ug/dL (118-369)
[2017-06-10 16:00] VITALS: BP 167/61
[2017-06-10 17:23] VITALS: BP 167/61
[2017-06-11 05:39] LABS: Vitamin B12 1697 pg/mL (211-946)
[2017-06-11 16:40] LABS: Saccharomyces cerevisiae, IgA <20.0 Units (0.0-24.9); Saccharomyces cerevisiae, IgG <20.0 Units (0.0-24.9)
--- OUTSIDE RECORDS SUMMARY | 2017-06-18 07:52 | External Medical Summary Rpt ---
Demographics Preferred Language Upper Sorbian Marital Status Unknown Confucianism Affiliation Unknown Race Unknown Ethnic Group Unknown Author Author , PIETER STAPLETON Address Unknown Phone Immunization Unable to retrieve immunization data due to connection failure with Immunization Registry. Please try again later.
--- OUTSIDE RECORDS SUMMARY | 2017-06-18 07:52 | External Medical Summary Rpt ---
Demographics Preferred Language Bulgarian Marital Status Unknown Shinto Affiliation Unknown Race Unknown Ethnic Group Unknown Author Author , PIETER STAPLETON Address Unknown Phone Immunization Unable to retrieve immunization data due to connection failure with Immunization Registry. Please try again later.
--- OUTSIDE RECORDS SUMMARY | 2017-06-18 07:55 | External Medical Summary Rpt ---
Author Author PIETER Jimenez, [employer] Address Unknown Phone Unavailable Results DIARRHEA PANEL,PCR Observa Value Referen Units Interpr Notes Date tion ce etation Range Adenovi NOT NOT No No No Jun 2 manuel DETECTE DETECTE informa informa informa 2017 40+41 D tion in tion in tion in 2:50 PM Ag source source source [Presen data data data ce] in Stool Aeromon NOT NOT No No No Jun 2 as DETECTE DETECTE informa informa informa 2016 salmoni D tion in tion in tion in 2:50 PM alysa source source source [Presen data data data ce] in Unspeci fied specime n Astrovi NOT NOT No No No Jun 2 manuel DETECTE DETECTE informa informa informa 2017 [Presen D tion in tion in tion in 2:50 PM ce] in source source source Stool data data data by Electro n microsc opy Campylo NOT NOT No No No Jun 2 bacter DETECTE DETECTE informa informa informa 2016 sp Ab D tion in tion in tion in 2:50 PM [Presen source source source ce] in data data data Serum Clostri NOT NOT No No No Jun 2 dium DETECTE DETECTE informa informa informa 2017 diffici D tion in tion in tion in 2:50 PM le source source source toxin data data data A+B [Presen ce] in Stool Cryptos NOT NOT No No No Jun 2 poridiu DETECTE DETECTE informa informa informa 2017 m sp Ag D tion in tion in tion in 2:50 PM source source source [Presen data data data ce] in Unspeci fied specime n Cyclosp NOT NOT No No No Jun 2 ora DETECTE DETECTE informa informa informa 2017 cayetan D tion in tion in tion in 2:50 PM estelle source source source [Presen data data data ce] in Unspeci fied specime n Escheri NOT NOT No No No Jun 2 emmy DETECTE DETECTE informa informa informa 2017 coli D tion in tion in tion in 2:50 PM [Presen source source source ce] in data data data Unspeci fied specime n by Culture FDA method Escheri NOT NOT No No No Jun 2 emmy DETECTE DETECTE informa informa informa 2017 coli D tion in tion in tion in 2:50 PM [Presen source source source ce] in data data data Unspeci fied specime n by Culture FDA method Escheri NOT NOT No No No Jun 2 emmy DETECTE DETECTE informa informa informa 2017 coli D tion in tion in tion in 2:50 PM Shiga-l source source source diana data data data toxin 1 assa Escheri NOT NOT No No No Jun 2 emmy DETECTE DETECTE informa informa informa 2017 coli D tion in tion in tion in 2:50 PM O157:[id number] source source source data data data [Presen ce] in Stool by Organis m specifi c culture Entamoe NOT NOT No No No Jun 2 ba DETECTE DETECTE informa informa informa 2017 histoly D tion in tion in tion in 2:50 PM rikki source source source [Presen data data data ce] in Stool by Trichro me stain Giardia NOT NOT No No No Jun 2 DETECTE DETECTE informa informa informa 2017 lamblia D tion in tion in tion in 2:50 PM Ag source source source [Presen data data data ce] in Stool Norovir NOT NOT No No No Jun 2 us Ag DETECTE DETECTE informa informa informa 2017 [Presen D tion in tion in tion in 2:50 PM ce] in source source source Stool data data data Stool NOT NOT No No No Jun 2 Plesiom DETECTE DETECTE informa informa informa 2017 onas D tion in tion in tion in 2:50 PM shigell source source source oides data data data DNA detec Rotavir NOT NOT No No No Jun 2 us RNA DETECTE DETECTE informa informa informa 2017 detecti D tion in tion in tion in 2:50 PM on by source source source probe data data data and tar Salmone NOT NOT No No No Jun 2 lla sp DETECTE DETECTE informa informa informa 2017 DNA D tion in tion in tion in 2:50 PM [Identi source source source fier] data data data in Unspeci fied specime n by Probe & target amplifi cation method Caliciv NOT NOT No No No Jun 2 irus DETECTE DETECTE informa informa informa 2017 [Identi D tion in tion in tion in 2:50 PM fier] source source source in data data data Stool by Electro n microsc opy Escheri NOT NOT No No No Jun 2 emmy DETECTE DETECTE informa informa informa 2017 coli D tion in tion in tion in 2:50 PM [Presen source source source ce] in data data data Unspeci fied specime n by Culture FDA method Escheri NOT NOT No No No Jun 2 emmy DETECTE DETECTE informa informa informa 2017 coli D tion in tion in tion in 2:50 PM SXT source source source gene+H7 data data data gene [Identi fier] in Unspeci fied specime n by Probe & target amplifi cation method Vibrio NOT NOT No No No Jun 2 cholera DETECTE DETECTE informa informa informa 2017 e DNA D tion in tion in tion in 2:50 PM [Presen source source source ce] in data data data Unspeci fied specime n by Probe & target amplifi cation method Vibrio NOT NOT No No No Jun 2 sp DNA DETECTE DETECTE informa informa informa 2016 [Identi D tion in tion in tion in 2:50 PM fier] source source source in data data data Unspeci fied specime n by Probe & target amplifi cation method Vibrio NOT NOT No No No Jun 2 sp DETECTE DETECTE informa informa informa 2017 identif D tion in tion in tion in 2:50 PM ied in source source source Stool data data data by Organis m specifi c culture Cobalamin (Vitamin B12) [Mass/volume] in Serum Observa Value Referen Units Interpr Notes Date tion ce etation Range Cobalamin 211 - 946 pg/mL High Performed Jun 09 (Vitamin at: CB 2017 B12) - [facility] 12:00 PM [Mass/vol ume] in [place] [address] Serum 0 [place], [place] [id number] [employer]: Syd Chamberlain PhD, Phone: [phone] Iron and TIBC Observa Value Referen Units Interpr Notes Date tion ce etation Range Iron 250 - 450 ug/dL Low No Oct 2 binding informati 2017 capacity on in 12:00 PM [Mass/vol source ume] in data Serum or Plasma Iron 118 - 369 ug/dL No No Oct 2 binding informati informati 2017 capacity. on in on in 12:00 PM unsaturat source source ed data data [Mass/vol ume] in Serum or Plasma Iron 27 - 139 ug/dL No No Oct 2 [Mass/vol informati informati 2017 ume] in on in on in 12:00 PM Serum or source source Plasma data data Iron 15 - 55 % No Performed Jun 09 saturatio informati at: 2017 n [Mass] on in - [facility] 12:00 PM in Serum source or Plasma data [id number] [place], [place] [id number] [employer]: Syd Chamberlain PhD, Phone: [phone] Imflammatory Bowel Disease-IBD Observa Value Referen Units Interpr Notes Date tion ce etation Range Neutrophi Neg:<1:20 titer High The Jun 2 l atypical 2017 cytoplasm pANCA 12:00 PM ic pattern Ab.perinu has been clear.aty observed pical in [Titer] asignific in Serum ant by percentag Immunoflu e of orescence patients with ulcerativ e colitis,p rimary sclerosin g cholangit is and autoimmun e hepatitis .ASCA+/PA NCA- Suggestiv e of Crohn's diseaseAS CA-/PANCA + Suggestiv e of Ulcerativ e colitisPe rformed at: [facility] [id number] [place], [place] [id number] [employer]: Darell Jefferson MD, Phone: [phone] d at: - [facility] [id number] [place], [place] [id number] [employer]: Syd Chamberlain PhD, Phone: [phone] Sacchar <20.0 0.0 - Units No Negativ Jun 2 omyces 24.9 informa e 2017 cerevis tion in 12:00 iae, source <20.0Eq PM IgA data uivocal 20.1 - 24.9Pos itive >or= 25.0IgA and IgG antibod y testing for S. cerevis iae isusefu l adjunct testing for differe ntiatin g Crohn's disease and ulcerat valerie colitis . Close to 80% ofCrohn 's disease patient s are positiv e for eitherI gA or IgG. In ulcerat valerie colitis , less than 15% areposi tive for IgG and less than 2% are positiv e forIgA. Fewer than 5% are positiv e for either IgG orIgA antibod y, and no healthy control s had antibod yfor both. Sacchar <20.0 0.0 - Units No Negativ Jun 09 omyces 24.9 informa e 2017 cerevis tion in 12:00 iae, source <20.0Eq PM IgG data uivocal 20.1 - 24.9Pos itive >or= 25.0 Erythrocyte sedimentation rate by Westergren method Observa Value Referen Units Interpr Notes Date tion ce etation Range Erythrocy 0 - 30 mm/hr High No Jun 09 te 2016 sedimenta on in 11:30 AM tion rate source by data Westergre n method CBC W Auto Differential panel in Blood Observa Value Referen Units Interpr Notes Date tion ce etation Range Basophils 0 - 0.2 K/MM3 Normal No Jun 08 inform2016 6:00 [#/volume on in AM ] in source Blood by data Automated count Basophils 0.1 - 2.0 % Normal No Jun 08 informati 2016 6:00 leukocyte on in AM s in source Blood by data Automated count Eosinophi 0.0 - 0.4 K/mm3 Normal No Jun 08 ls informati 2016 6:00 [#/volume on in AM ] in source Blood by data Automated count Eosinophi 0.1 - % Normal No Jun 08 ls 12.0 informati 2016 6:00 leukocyte on in AM s in source Blood by data Automated count Granulocy 1.8 - 7.8 K/mm3 Normal No Jun 08 colten informati 2016 6:00 [#/volume on in AM ] in source Blood by data Automated count Granulocy 37.0 - % High No Jun 08 colten 80.0 informati 2017 6:00 leukocyte on in AM s in source Blood by data Automated count Hematocri 37.0 - % Low No Jun 08 t [Volume 47.0 informati 2016 6:00 on in AM Fraction] source of Blood data Hemoglobi 12.2 - g/dL Low No Jun 1 n 16.2 informati 2016 6:00 [Mass/vol on in AM ume] in source Blood data Lymphocyt 0.7 - 4.5 K/mm3 Normal No Jun 08 es informati 2016 6:00 [#/volume on in AM ] in source Unspecifi data ed specimen by Automated count Lymphocyt 10 - 50.0 % Normal No Jun 08 es informati 2016 6:00 [#/volume on in AM ] in source Unspecifi data ed specimen by Automated count Erythrocy 27 - 31.2 pg Normal No Jun 08 te mean informati 2016 6:00 corpuscul on in AM ar source hemoglobi data n [Entitic mass] Erythrocy 31.8 - g/dl Low No Jun 08 te mean 35.4 informati 2016 6:00 corpuscul on in AM ar source hemoglobi data n concentra tion [Mass/vol ume] by Automated count Erythrocy 82.2 - fl Normal No Jun 08 te mean 97.8 informati 2016 6:00 corpuscul on in AM ar volume source [Entitic data volume] by Automated count Monocytes 0.1 - 1.0 K/mm3 Normal No Jun 1 informati 2016 6:00 [#/volume on in AM ] in source Blood by data Automated count Monocytes 1.7 - 9.3 % Normal No Jun 1 /100 informati 2016 6:00 leukocyte on in AM s in source Blood by data Automated count Platelet 7.4 - fl Low No Jun 08 mean 10.4 informati 2017 6:00 volume on in AM [Entitic source volume] data in Blood by Automated count Platelets 142 - 424 K/mm3 High No Jun 1 informati 2017 6:00 [#/volume on in AM ] in source Blood data Erythrocy 4.2 - 5.4 M/mm3 Low No Jun 1 colten informati 2017 6:00 [#/volume on in AM ] in source Amniotic data fluid Erythrocy 11.5 - % Normal No Jun 08 te 17.5 informati 2016 6:00 distribut on in AM ion width source [Entitic data volume] by Automated count Leukocyte 4.8 - K/MM3 Normal No Jun 1 s 10.8 informati 2017 6:00 [#/volume on in AM ] in source Blood data DIARRHEA PANEL,PCR Observa Value Referen Units Interpr Notes Date tion ce etation Range Adenovi NOT NOT No No No Sep 27 manuel DETECTE DETECTE informa informa informa 2017 40+41 D tion in tion in tion in Ag source source source [Presen data data data ce] in Stool Aeromon NOT NOT No No No Sep as DETECTE DETECTE informa informa informa 2017 salmoni D tion in tion in tion in alysa source source source [Presen data data data ce] in Unspeci fied specime n Astrovi NOT NOT No No No Jun 04 manuel DETECTE DETECTE informa informa informa 2017 [Presen D tion in tion in tion in ce] in source source source Stool data data data by Electro n microsc opy Campylo NOT NOT No No No Jun 04 bacter DETECTE DETECTE informa informa informa 2017 sp Ab D tion in tion in tion in [Presen source source source ce] in data data data Serum Clostri NOT NOT No No No Jun 04 dium DETECTE DETECTE informa informa informa 2017 diffici D tion in tion in tion in le source source source toxin data data data A+B [Presen ce] in Stool Cryptos NOT NOT No No No Jun 04 poridiu DETECTE DETECTE informa informa informa 2017 m sp Ag D tion in tion in tion in source source source [Presen data data data ce] in Unspeci fied specime n Cyclosp NOT NOT No No No Jun 04 ora DETECTE DETECTE informa informa informa 2017 cayetan D tion in tion in tion in estelle source source source [Presen data data data ce] in Unspeci fied specime n Escheri NOT NOT No No No Jun 04 emmy DETECTE DETECTE informa informa informa 2017 coli D tion in tion in tion in [Presen source source source ce] in data data data Unspeci fied specime n by Culture FDA method Escheri NOT NOT No No No Jun 04 emmy DETECTE DETECTE informa informa informa 2017 coli D tion in tion in tion in [Presen source source source ce] in data data data Unspeci fied specime n by Culture FDA method Escheri NOT NOT No No No Jun 04 emmy DETECTE DETECTE informa informa informa 2017 coli D tion in tion in tion in Shiga-l source source source diana data data data toxin 1 assa Escheri NOT NOT No No No Jun 04 emmy DETECTE DETECTE informa informa informa 2017 coli D tion in tion in tion in O157:[id number] source source source data data data [Presen ce] in Stool by Organis m specifi c culture Entamoe NOT NOT No No No Jun 04 ba DETECTE DETECTE informa informa informa 2017 histoly D tion in tion in tion in rikki source source source [Presen data data data ce] in Stool by Trichro me stain Giardia NOT NOT No No No Jun 04 DETECTE DETECTE informa informa informa 2017 lamblia D tion in tion in tion in Ag source source source [Presen data data data ce] in Stool Norovir NOT NOT No No No Jun 04 us Ag DETECTE DETECTE informa informa informa 2017 [Presen D tion in tion in tion in ce] in source source source Stool data data data Stool NOT NOT No No No Jun 04 Plesiom DETECTE DETECTE informa informa informa 2017 onas D tion in tion in tion in shigell source source source oides data data data DNA detec Rotavir NOT NOT No No No Jun 04 us RNA DETECTE DETECTE informa informa informa 2017 detecti D tion in tion in tion in on by source source source probe data data data and tar Salmone NOT NOT No No No Jun 04 lla sp DETECTE DETECTE informa informa informa 2017 DNA D tion in tion in tion in [Identi source source source fier] data data data in Unspeci fied specime n by Probe & target amplifi cation method Caliciv NOT NOT No No No Jun 04 irus DETECTE DETECTE informa informa informa 2017 [Identi D tion in tion in tion in fier] source source source in data data data Stool by Electro n microsc opy Escheri NOT NOT No No No Sep 27 emmy DETECTE DETECTE informa informa informa 2017 coli D tion in tion in tion in [Presen source source source ce] in data data data Unspeci fied specime n by Culture FDA method Escheri NOT NOT No No No Sep 27 emmy DETECTE DETECTE informa informa informa 2017 coli D tion in tion in tion in SXT source source source gene+H7 data data data gene [Identi fier] in Unspeci fied specime n by Probe & target amplifi cation method Vibrio NOT NOT No No No Sep 27 cholera DETECTE DETECTE informa informa informa 2017 e DNA D tion in tion in tion in [Presen source source source ce] in data data data Unspeci fied specime n by Probe & target amplifi cation method Vibrio NOT NOT No No No Sep 27 sp DNA DETECTE DETECTE informa informa informa 2016 [Identi D tion in tion in tion in fier] source source source in data data data Unspeci fied specime n by Probe & target amplifi cation method Vibrio NOT NOT No No No Sep 27 sp DETECTE DETECTE informa informa informa 2017 identif D tion in tion in tion in ied in source source source Stool data data data by Organis m specifi c culture DIARRHEA PANEL,PCR Observa Value Referen Units Interpr Notes Date tion ce etation Range Adenovi NOT NOT No No No Sep 26 manuel DETECTE DETECTE informa informa informa 2016 40+41 D tion in tion in tion in 8:07 AM Ag source source source [Presen data data data ce] in Stool Aeromon NOT NOT No No No Sep 26 as DETECTE DETECTE informa informa informa 2016 salmoni D tion in tion in tion in 8:07 AM alysa source source source [Presen data data data ce] in Unspeci fied specime n Astrovi NOT NOT No No No Sep 26 manuel DETECTE DETECTE informa informa informa 2016 [Presen D tion in tion in tion in 8:07 AM ce] in source source source Stool data data data by Electro n microsc opy Campylo NOT NOT No No No Sep 26 bacter DETECTE DETECTE informa informa informa 2016 sp Ab D tion in tion in tion in 8:07 AM [Presen source source source ce] in data data data Serum Clostri NOT NOT No No No Jun 03 dium DETECTE DETECTE informa informa informa 2017 diffici D tion in tion in tion in 8:07 AM le source source source toxin data data data A+B [Presen ce] in Stool Cryptos NOT NOT No No No Jun 03 poridiu DETECTE DETECTE informa informa informa 2017 m sp Ag D tion in tion in tion in 8:07 AM source source source [Presen data data data ce] in Unspeci fied specime n Cyclosp NOT NOT No No No Jun 03 ora DETECTE DETECTE informa informa informa 2017 cayetan D tion in tion in tion in 8:07 AM estelle source source source [Presen data data data ce] in Unspeci fied specime n Escheri NOT NOT No No No Jun 03 emmy DETECTE DETECTE informa informa informa 2017 coli D tion in tion in tion in 8:07 AM [Presen source source source ce] in data data data Unspeci fied specime n by Culture FDA method Escheri NOT NOT No No No Jun 03 emmy DETECTE DETECTE informa informa informa 2017 coli D tion in tion in tion in 8:07 AM [Presen source source source ce] in data data data Unspeci fied specime n by Culture FDA method Escheri NOT NOT No No No Jun 03 emmy DETECTE DETECTE informa informa informa 2016 coli D tion in tion in tion in 8:07 AM Shiga-l source source source diana data data data toxin 1 assa Escheri NOT NOT No No No Jun 03 emmy DETECTE DETECTE informa informa informa 2016 coli D tion in tion in tion in 8:07 AM O157:[id number] source source source data data data [Presen ce] in Stool by Organis m specifi c culture Entamoe NOT NOT No No No Jun 03 ba DETECTE DETECTE informa informa informa 2017 histoly D tion in tion in tion in 8:07 AM rikki source source source [Presen data data data ce] in Stool by Trichro me stain Giardia NOT NOT No No No Jun 03 DETECTE DETECTE informa informa informa 2017 lamblia D tion in tion in tion in 8:07 AM Ag source source source [Presen data data data ce] in Stool Norovir NOT NOT No No No Jun 03 us Ag DETECTE DETECTE informa informa informa 2017 [Presen D tion in tion in tion in 8:07 AM ce] in source source source Stool data data data Stool NOT NOT No No No Jun 03 Plesiom DETECTE DETECTE informa informa informa 2017 onas D tion in tion in tion in 8:07 AM shigell source source source oides data data data DNA detec Rotavir NOT NOT No No No Jun 03 us RNA DETECTE DETECTE informa informa informa 2017 detecti D tion in tion in tion in 8:07 AM on by source source source probe data data data and tar Salmone NOT NOT No No No Jun 03 lla sp DETECTE DETECTE informa informa informa 2017 DNA D tion in tion in tion in 8:07 AM [Identi source source source fier] data data data in Unspeci fied specime n by Probe & target amplifi cation method Caliciv NOT NOT No No No Jun 03 irus DETECTE DETECTE informa informa informa 2016 [Identi D tion in tion in tion in 8:07 AM fier] source source source in data data data Stool by Electro n microsc opy Escheri NOT NOT No No No Jun 03 emmy DETECTE DETECTE informa informa informa 2016 coli D tion in tion in tion in 8:07 AM [Presen source source source ce] in data data data Unspeci fied specime n by Culture FDA method Escheri NOT NOT No No No Jun 03 emmy DETECTE DETECTE informa informa informa 2017 coli D tion in tion in tion in 8:07 AM SXT source source source gene+H7 data data data gene [Identi fier] in Unspeci fied specime n by Probe & target amplifi cation method Vibrio NOT NOT No No No Jun 03 cholera DETECTE DETECTE informa informa informa 2016 e DNA D tion in tion in tion in 8:07 AM [Presen source source source ce] in data data data Unspeci fied specime n by Probe & target amplifi cation method Vibrio NOT NOT No No No Jun 03 sp DNA DETECTE DETECTE informa informa informa 2016 [Identi D tion in tion in tion in 8:07 AM fier] source source source in data data data Unspeci fied specime n by Probe & target amplifi cation method Vibrio NOT NOT No No No Sep sp DETECTE DETECTE informa informa informa 2017 identif D tion in tion in tion in 8:07 AM ied in source source source Stool data data data by Organis m specifi c culture Urinalysis dipstick W Reflex Microscopic panel in Urine Observa Value Referen Units Interpr Notes Date tion ce etation Range Appeara CLEAR CLEAR No No No Sep nce of informa informa informa 2016 Urine tion in tion in tion in 6:52 AM source source source data data data Bacteri 2+ O No No No Sep a informa informa informa 2016 [Presen tion in tion in tion in 6:52 AM ce] in source source source Urine data data data sedimen t by Light microsc opy Bilirub NEGATIV NEG No No No Sep in E informa informa informa 2016 [Presen tion in tion in tion in 6:52 AM ce] in source source source Urine data data data by Test strip Erythro TRACE-I NEG No No No Jun 03 cytes NTACT informa informa informa 2016 [Presen tion in tion in tion in 6:52 AM ce] in source source source Urine data data data Color YELLOW YELLOW No No No Sep of informa informa informa 2016 Urine tion in tion in tion in 6:52 AM source source source data data data Glucose NEG No No No Sep [Mass/vol informati informati informati 2016 6:52 ume] in on in on in on in AM Urine by source source source Test data data data strip Ketones NEGATIV NEG mg/dL No No Sep E informa informa 2016 [Presen tion in tion in 6:52 AM ce] in source source Urine data data by Automat ed test strip Mucus NEGATIV NEG No No No Sep [Presen E informa informa informa 2016 ce] in tion in tion in tion in 6:52 AM Urine source source source sedimen data data data t by Light microsc opy Mucus 1+ OCC No No No Sep 26 [Presen informa informa informa 2017 ce] in tion in tion in tion in 6:52 AM Urine source source source sedimen data data data t by Light microsc opy Nitrite NEGATIV NEG No No No Sep 26 E informa informa informa 2016 [Presen tion in tion in tion in 6:52 AM ce] in source source source Urine data data data by Test strip pH of 5.0 - 8.5 No Normal No Sep 26 Urine informati informati 2017 6:52 on in on in AM source source data data Protein NEG mg/dL No No Sep 26 [Mass/vol informati informati 2017 6:52 ume] in on in on in AM Urine by source source Automated data data test strip Erythro OCC 0 rbc/hpf No No Sep 26 cytes informa informa 2017 [Presen tion in tion in 6:52 AM ce] in source source Urine data data sedimen t by Light microsc opy Specific 1.005 - No Normal No Sep 26 gravity 1.030 informati informati 2017 6:52 of Urine on in on in AM source source data data Epithel TNTC 0 - 5 #/hpf No No Sep 26 ial informa informa 2017 cells.s tion in tion in 6:52 AM quamous source source data data [Presen ce] in Urine sedimen t by Microsc opy high power field Urobili 0.2 NEG E.U./dL No No Sep 26 nogen informa informa 2016 [Presen tion in tion in 6:52 AM ce] in source source Urine data data by Test strip Leukocyte O wbc/hpf No No Sep 26 s informati informati 2017 6:52 [#/volume on in on in AM ] in source source Urine data data Urinalysis dipstick W Reflex Microscopic panel in Urine Observa Value Referen Units Interpr Notes Date tion ce etation Range Appeara CLEAR CLEAR No No No Sep 26 nce of informa informa informa 2017 Urine tion in tion in tion in 6:52 AM source source source data data data Bilirub NEGATIV NEG No No No Sep 26 in E informa informa informa 2017 [Presen tion in tion in tion in 6:52 AM ce] in source source source Urine data data data by Test strip Erythro TRACE-I NEG No No No Sep cytes NTACT informa informa informa 2016 [Presen tion in tion in tion in 6:52 AM ce] in source source source Urine data data data Color YELLOW YELLOW No No No Sep 26 of informa informa informa 2017 Urine tion in tion in tion in 6:52 AM source source source data data data Glucose NEG No No No Sep 26 [Mass/vol informati informati informati 2017 6:52 ume] in on in on in on in AM Urine by source source source Test data data data strip Ketones NEGATIV NEG mg/dL No No Sep E informa informa 2016 [Presen tion in tion in 6:52 AM ce] in source source Urine data data by Automat ed test strip Mucus NEGATIV NEG No No No Sep [Presen E informa informa informa 2016 ce] in tion in tion in tion in 6:52 AM Urine source source source sedimen data data data t by Light microsc opy Nitrite NEGATIV NEG No No No Sep E informa informa informa 2016 [Presen tion in tion in tion in 6:52 AM ce] in source source source Urine data data data by Test strip pH of 5.0 - 8.5 No Normal No Sep 26 Urine informati informati 2017 6:52 on in on in AM source source data data Protein NEG mg/dL No No Sep 26 [Mass/vol informati informati 2017 6:52 ume] in on in on in AM Urine by source source Automated data data test strip Specific 1.005 - No Normal No Sep 26 gravity 1.030 informati informati 2017 6:52 of Urine on in on in AM source source data data Urobili 0.2 NEG E.U./dL No No Sep 26 nogen informa informa 2017 [Presen tion in tion in 6:52 AM ce] in source source Urine data data by Test strip Lipase [Enzymatic activity/volume] in Serum or Plasma Observa Value Referen Units Interpr Notes Date tion ce etation Range Lipase 73 - 393 U/L Low No Sep 26 [Enzymati informati 2017 6:15 c on in AM activity/ source volume] data in Serum or Plasma Comprehensive metabolic 2000 panel in Serum or Plasma Observa Value Referen Units Interpr Notes Date tion ce etation Range Albumin/G 1.1 - 1.8 No Low No Sep 26 lobulin informati informati 2017 6:15 [Mass on in on in AM ratio] in source source Serum or data data Plasma Albumin 3.4 - 5.0 gm/dL Low No Sep 26 [Mass/vol informati 2017 6:15 ume] in on in AM Serum or source Plasma data Alkaline 46 - 116 U/L High No Sep 26 phosphata informati 2017 6:15 se on in AM [Enzymati source c data activity/ volume] in Serum or Plasma Bilirubin 0.2 - 1.0 mg/dL Normal No Sep 26 .total informati 2017 6:15 [Mass/vol on in AM ume] in source Serum or data Plasma Urea 7 - 18 mg/dL Normal No Sep 26 nitrogen informati 2017 6:15 [Mass/vol on in AM ume] in source Serum or data Plasma Calcium 8.5 - mg/dL Normal No Sep 26 [Mass/vol 10.1 informati 2017 6:15 ume] in on in AM Serum or source Plasma data Chloride 98 - 107 mmoL/L Normal No Sep 26 [Moles/vo informati 2017 6:15 lume] in on in AM Serum or source Plasma data Carbon 21.0 - mmoL/L Normal No Sep 26 dioxide, 32.0 informati 2017 6:15 total on in AM [Moles/vo source lume] in data Serum or Plasma Creatinin 0.55 - mg/dL Normal No Sep 26 e 1.02 informati 2017 6:15 [Mass/vol on in AM ume] in source Serum or data Plasma Creatinin 50 - 200 ML/MIN Normal No Sep 26 e renal informati 2017 6:15 clearance on in AM source predicted data by Cockcroft -Gault formula Estimated 59- ML/MIN No REFERENCE Sep 26 informati RANGE: 2017 6:15 glomerula on in >60 AM r source ML/MIN/1. filtratio data 73 SQUARE n rate METERSIf (GF this patient is -A merican, then multiply theresult by 1.210. Globulin 1.3 - 3.2 gm/dL High No Sep 26 [Mass/vol informati 2017 6:15 ume] in on in AM Serum source data Glucose 74 - 106 mg/dL Normal No Sep 26 [Mass/vol informati 2017 6:15 ume] in on in AM Serum or source Plasma data Potassium 3.5 - 5.1 mmoL/L Normal No Sep 26 informati 2017 6:15 [Moles/vo on in AM lume] in source Serum or data Plasma Sodium 136 - 145 mmoL/L Normal No Sep 26 [Moles/vo informati 2017 6:15 lume] in on in AM Serum or source Plasma data Aspartate 15 - 37 U/L Low No Sep 26 informati 2017 6:15 aminotran on in AM sferase source [Enzymati data c activity/ volume] in Serum or Plasma Alanine 12 - 78 U/L Normal No Sep 26 aminotran informati 2017 6:15 sferase on in AM [Enzymati source c data activity/ volume] in Serum or Plasma Protein 6.4 - 8.2 gm/dL Low No Sep 26 [Mass/vol informati 2017 6:15 ume] in on in AM Serum or source Plasma data CBC W Auto Differential panel in Blood Observa Value Referen Units Interpr Notes Date tion ce etation Range Granulocy 1.8 - 7.8 K/mm3 Normal No Sep 26 colten informati 2017 6:15 [#/volume on in AM ] in source Blood by data Automated count Granulocy 37.0 - % Normal No Sep 26 colten/100 80.0 informati 2017 6:15 leukocyte on in AM s in source Blood by data Automated count Hematocri 37.0 - % Low No Sep 26 t [Volume 47.0 informati 2017 6:15 on in AM Fraction] source of Blood data Hemoglobi 12.2 - g/dL Low No Sep 26 n 16.2 informati 2017 6:15 [Mass/vol on in AM ume] in source Blood data Lymphocyt 0.7 - 4.5 K/mm3 Normal No Sep 26 es informati 2017 6:15 [#/volume on in AM ] in source Unspecifi data ed specimen by Automated count Lymphocyt 10 - 50.0 % Normal No Sep 26 es informati 2017 6:15 [#/volume on in AM ] in source Unspecifi data ed specimen by Automated count Erythrocy 27 - 31.2 pg Normal No Sep 26 te mean informati 2017 6:15 corpuscul on in AM ar source hemoglobi data n [Entitic mass] Erythrocy 31.8 - g/dl Normal No Sep 26 te mean 35.4 informati 2017 6:15 corpuscul on in AM ar source hemoglobi data n concentra tion [Mass/vol ume] by Automated count Erythrocy 82.2 - fL Normal No Sep 26 te mean 97.8 informati 2017 6:15 corpuscul on in AM ar volume source [Entitic data volume] by Automated count Monocytes 0.1 - 1.0 K/mm3 Normal No Sep 26 informati 2017 6:15 [#/volume on in AM ] in source Blood by data Automated count Monocytes 1.7 - 9.3 % Normal No Sep 26 /100 informati 2017 6:15 leukocyte on in AM s in source Blood by data Automated count Platelets 142 - 424 K/mm3 High CONFIRMED Sep 26 WITH 2017 6:15 [#/volume REPEAT AM ] in ANALYSIS. Blood Erythrocy 4.2 - 5.4 M/mm3 Low No Sep 26 colten informati 2017 6:15 [#/volume on in AM ] in source Amniotic data fluid Erythrocy 11.5 - % Normal No Sep 26 te 17.5 informati 2017 6:15 distribut on in AM ion width source [Entitic data volume] by Automated count Leukocyte 4.8 - K/mm3 Normal No Sep 26 s 10.8 informati 2017 6:15 [#/volume on in AM ] in source Blood data Bacteria identified in Urine by Culture Observa Value Referen Units Interpr Notes Date tion ce etation Range Bacteri YEAST No No No No Sep 15 a NOTED. informa informa informa informa 2017 identif PLEASE tion in tion in tion in tion in 11:25 ied in CONTACT source source source source AM Urine LAB IF data data data data by ID Culture REQUIRE D. Bacteri LAB No No No No Sep 15 a WILL informa informa informa informa 2017 identif HOLD tion in tion in tion in tion in 11:25 ied in SPECIME source source source source AM Urine N FOR 5 data data data data by DAYS. Culture Bacteri ORGANIS No No No No Sep 15 a M #2: informa informa informa informa 2017 identif GRAM tion in tion in tion in tion in 11:25 ied in POSITIV source source source source AM Urine E data data data data by BACILLI Culture . SENDING TO [facility] FOR Bacteri ID AND No No No No Sep 15 a SENSITI informa informa informa informa 2017 identif VITIES tion in tion in tion in tion in 11:25 ied in ON source source source source AM Urine 05/27/17 data data data data by . Culture Bacteri Yeast No No No No Sep 15 a informa informa informa informa 2017 identif tion in tion in tion in tion in 11:25 ied in source source source source AM Urine data data data data by Culture Urinalysis dipstick W Reflex Microscopic panel in Urine Observa Value Referen Units Interpr Notes Date tion ce etation Range Appeara CLOUDY CLEAR No No No Sep 15 nce of informa informa informa 2017 Urine tion in tion in tion in 11:25 source source source AM data data data Bacteri 3+ O No No No Sep 15 a informa informa informa 2017 [Presen tion in tion in tion in 11:25 ce] in source source source AM Urine data data data sedimen t by Light microsc opy Bilirub NEGATIV NEG No No No Sep 15 in E informa informa informa 2017 [Presen tion in tion in tion in 11:25 ce] in source source source AM Urine data data data by Test strip Erythro NEGATIV NEG No No No Sep 15 cytes E informa informa informa 2017 [Presen tion in tion in tion in 11:25 ce] in source source source AM Urine data data data Color YELLOW YELLOW No No No Sep 15 of informa informa informa 2017 Urine tion in tion in tion in 11:25 source source source AM data data data Glucose NEG No No No Sep 15 [Mass/vol informati informati informati 2017 ume] in on in on in on in 11:25 AM Urine by source source source Test data data data strip Ketones NEGATIV NEG mg/dL No No Sep 15 E informa informa 2017 [Presen tion in tion in 11:25 ce] in source source AM Urine data data by Automat ed test strip Mucus NEGATIV NEG No No No Sep 15 [Presen E informa informa informa 2017 ce] in tion in tion in tion in 11:25 Urine source source source AM sedimen data data data t by Light microsc opy Mucus 1+ OCC No No No Sep 15 [Presen informa informa informa 2017 ce] in tion in tion in tion in 11:25 Urine source source source AM sedimen data data data t by Light microsc opy Nitrite NEGATIV NEG No No No Sep 15 E informa informa informa 2017 [Presen tion in tion in tion in 11:25 ce] in source source source AM Urine data data data by Test strip pH of 5.0 - 8.5 No Normal No Sep 15 Urine informati informati 2017 on in on in 11:25 AM source source data data Protein NEG mg/dL No No Sep 15 [Mass/vol informati informati 2017 ume] in on in on in 11:25 AM Urine by source source Automated data data test strip Specific 1.005 - No Normal No Sep 15 gravity 1.030 informati informati 2017 of Urine on in on in 11:25 AM source source data data Epithel 20-50 0 - 5 #/hpf No No Sep 15 ial informa informa 2017 cells.s tion in tion in 11:25 quamous source source AM data data [Presen ce] in Urine sedimen t by Microsc opy high power field Urobili 1.0 NEG E.U./dL No No Sep 15 nogen informa informa 2017 [Presen tion in tion in 11:25 ce] in source source AM Urine data data by Test strip Leukocy [3 O wbc/hpf No No Sep 15 colten wbc/hpf informa informa 2017 [#/volu ; 5 tion in tion in 11:25 me] in wbc/hpf source source AM Urine ] data data Yeast 1+ NONE No No No Sep 15 [Presen informa informa informa 2017 ce] in tion in tion in tion in 11:25 Urine source source source AM sedimen data data data t by Light microsc opy Urinalysis dipstick W Reflex Microscopic panel in Urine Observa Value Referen Units Interpr Notes Date tion ce etation Range Appeara CLOUDY CLEAR No No No Sep 15 nce of informa informa informa 2017 Urine tion in tion in tion in 11:25 source source source AM data data data Bilirub NEGATIV NEG No No No Sep 15 in E informa informa informa 2017 [Presen tion in tion in tion in 11:25 ce] in source source source AM Urine data data data by Test strip Erythro NEGATIV NEG No No No Sep 15 cytes E informa informa informa 2016 [Presen tion in tion in tion in 11:25 ce] in source source source AM Urine data data data Color YELLOW YELLOW No No No Sep 15 of informa informa informa 2017 Urine tion in tion in tion in 11:25 source source source AM data data data Glucose NEG No No No Sep 15 [Mass/vol informati informati informati 2017 ume] in on in on in on in 11:25 AM Urine by source source source Test data data data strip Ketones NEGATIV NEG mg/dL No No Sep 15 E informa informa 2016 [Presen tion in tion in 11:25 ce] in source source AM Urine data data by Automat ed test strip Mucus NEGATIV NEG No No No Sep 15 [Presen E informa informa informa 2016 ce] in tion in tion in tion in 11:25 Urine source source source AM sedimen data data data t by Light microsc opy Nitrite NEGATIV NEG No No No Sep 15 E informa informa informa 2016 [Presen tion in tion in tion in 11:25 ce] in source source source AM Urine data data data by Test strip pH of 5.0 - 8.5 No Normal No Sep 15 Urine informati informati 2017 on in on in 11:25 AM source source data data Protein NEG mg/dL No No Sep 15 [Mass/vol informati informati 2017 ume] in on in on in 11:25 AM Urine by source source Automated data data test strip Specific 1.005 - No Normal No Sep 15 gravity 1.030 informati informati 2017 of Urine on in on in 11:25 AM source source data data Urobili 1.0 NEG E.U./dL No No Sep 15 nogen informa informa 2017 [Presen tion in tion in 11:25 ce] in source source AM Urine data data by Test strip Comprehensive metabolic 2000 panel in Serum or Plasma Observa Value Referen Units Interpr Notes Date tion ce etation Range Albumin/G 1.1 - 1.8 No Low No Sep 15 lobulin informati informati 2017 [Mass on in on in 10:30 AM ratio] in source source Serum or data data Plasma Albumin 3.4 - 5.0 gm/dL Low No Sep 15 [Mass/vol informati 2017 ume] in on in 10:30 AM Serum or source Plasma data Alkaline 46 - 116 U/L Normal No Sep 15 phosphata informati 2017 se on in 10:30 AM [Enzymati source c data activity/ volume] in Serum or Plasma Bilirubin 0.2 - 1.0 mg/dL Normal No Sep 15 .total informati 2017 [Mass/vol on in 10:30 AM ume] in source Serum or data Plasma Urea 7 - 18 mg/dL Normal No Sep 15 nitrogen informati 2017 [Mass/vol on in 10:30 AM ume] in source Serum or data Plasma Calcium 8.5 - mg/dL Low No Sep 15 [Mass/vol 10.1 informati 2017 ume] in on in 10:30 AM Serum or source Plasma data Chloride 98 - 107 mmoL/L Normal No Sep 15 [Moles/vo informati 2017 lume] in on in 10:30 AM Serum or source Plasma data Carbon 21.0 - mmoL/L Normal No Sep 15 dioxide, 32.0 informati 2017 total on in 10:30 AM [Moles/vo source lume] in data Serum or Plasma Creatinin 0.55 - mg/dL Normal No Sep 15 e 1.02 informati 2017 [Mass/vol on in 10:30 AM ume] in source Serum or data Plasma Creatinin 50 - 200 ML/MIN Normal No Sep 15 e renal informati 2017 clearance on in 10:30 AM source predicted data by Cockcroft -Gault formula Estimated 59- ML/MIN No REFERENCE Sep 15 informati RANGE: 2017 glomerula on in >60 10:30 AM r source ML/MIN/1. filtratio data 73 SQUARE n rate METERSIf (GF this patient is -A merican, then multiply theresult by 1.210. Globulin 1.3 - 3.2 gm/dL High No Sep 15 [Mass/vol informati 2017 ume] in on in 10:30 AM Serum source data Glucose 74 - 106 mg/dL High No Sep 15 [Mass/vol informati 2017 ume] in on in 10:30 AM Serum or source Plasma data Potassium 3.5 - 5.1 mmoL/L Normal No Sep 15 inform 2017 [Moles/vo on in 10:30 AM lume] in source Serum or data Plasma Sodium 136 - 145 mmoL/L Normal No Sep 15 [Moles/vo informati 2016 lume] in on in 10:30 AM Serum or source Plasma data Aspartate 15 - 37 U/L Low No Sep 15 inform2016 aminotran on in 10:30 AM sferase source [Enzymati data c activity/ volume] in Serum or Plasma Alanine 12 - 78 U/L Normal No Sep 15 aminotran inform2016 sferase on in 10:30 AM [Enzymati source c data activity/ volume] in Serum or Plasma Protein 6.4 - 8.2 gm/dL Low No Sep 15 [Mass/vol informati 2016 ume] in on in 10:30 AM Serum or source Plasma data Lipase [Enzymatic activity/volume] in Serum or Plasma Observa Value Referen Units Interpr Notes Date tion ce etation Range Lipase 73 - 393 U/L Low No Sep 15 [Enzymati informati 2016 c on in 10:30 AM activity/ source volume] data in Serum or Plasma CBC W Auto Differential panel in Blood Observa Value Referen Units Interpr Notes Date tion ce etation Range Basophils 0 - 0.2 K/MM3 Normal No Sep 15 inform2016 [#/volume on in 10:30 AM ] in source Blood by data Automated count Basophils 0.1 - 2.0 % Normal No Sep 15 /100 inform2016 leukocyte on in 10:30 AM s in source Blood by data Automated count Eosinophi 0.0 - 0.4 K/mm3 Normal No Sep 15 ls inform2016 [#/volume on in 10:30 AM ] in source Blood by data Automated count Eosinophi 0.1 - % Normal No Sep 15 ls/100 12.0 inform2016 leukocyte on in 10:30 AM s in source Blood by data Automated count Granulocy 1.8 - 7.8 K/mm3 Normal No Sep 15 colten inform 2017 [#/volume on in 10:30 AM ] in source Blood by data Automated count Granulocy 37.0 - % Normal No Sep 15 colten/100 80.0 informati 2016 leukocyte on in 10:30 AM s in source Blood by data Automated count Hematocri 37.0 - % Low No Sep 15 t [Volume 47.0 informati 2017 on in 10:30 AM Fraction] source of Blood data Hemoglobi 12.2 - g/dL Low No Sep 15 n 16.2 inform2016 [Mass/vol on in 10:30 AM ume] in source Blood data Lymphocyt 0.7 - 4.5 K/mm3 Normal No Sep 15 es inform 2017 [#/volume on in 10:30 AM ] in source Unspecifi data ed specimen by Automated count Lymphocyt 10 - 50.0 % Normal No Sep 15 es inform 2017 [#/volume on in 10:30 AM ] in source Unspecifi data ed specimen by Automated count Erythrocy 27 - 31.2 pg Normal No Sep 15 te mean inform 2017 corpuscul on in 10:30 AM ar source hemoglobi data n [Entitic mass] Erythrocy 31.8 - g/dl Normal No Sep 15 te mean 35.4 inform2016 corpuscul on in 10:30 AM ar source hemoglobi data n concentra tion [Mass/vol ume] by Automated count Erythrocy 82.2 - fl Normal No Sep 15 te mean 97.8 inform2016 corpuscul on in 10:30 AM ar volume source [Entitic data volume] by Automated count Monocytes 0.1 - 1.0 K/mm3 Normal No Sep 15 2016 [#/volume on in 10:30 AM ] in source Blood by data Automated count Monocytes 1.7 - 9.3 % Normal No Sep 15 /100 2016 leukocyte on in 10:30 AM s in source Blood by data Automated count Platelet 7.4 - fl Low No Sep 15 mean 10.4 inform2016 volume on in 10:30 AM [Entitic source volume] data in Blood by Automated count Platelets 142 - 424 K/mm3 High No Sep 15 2016 [#/volume on in 10:30 AM ] in source Blood data Erythrocy 4.2 - 5.4 M/mm3 Low No Sep 15 colten inform2016 [#/volume on in 10:30 AM ] in source Amniotic data fluid Erythrocy 11.5 - % Normal No Sep 15 te 17.5 informati 2016 distribut on in 10:30 AM ion width source [Entitic data volume] by Automated count Leukocyte 4.8 - K/MM3 Normal No Sep 15 s 10.8 inform2016 [#/volume on in 10:30 AM ] in source Blood data DIARRHEA PANEL,PCR Observa Value Referen Units Interpr Notes Date tion ce etation Range Adenovi NOT NOT No No No Sep 15 manuel DETECTE DETECTE informa informa informa 2017 40+41 D tion in tion in tion in Ag source source source [Presen data data data ce] in Stool Aeromon NOT NOT No No No Sep 15 as DETECTE DETECTE informa informa informa 2017 salmoni D tion in tion in tion in alysa source source source [Presen data data data ce] in Unspeci fied specime n Astrovi NOT NOT No No No Sep 15 manuel DETECTE DETECTE informa informa informa 2017 [Presen D tion in tion in tion in ce] in source source source Stool data data data by Electro n microsc opy Campylo NOT NOT No No No Sep 15 bacter DETECTE DETECTE informa informa informa 2017 sp Ab D tion in tion in tion in [Presen source source source ce] in data data data Serum Clostri NOT NOT No No No Sep 15 dium DETECTE DETECTE informa informa informa 2017 diffici D tion in tion in tion in le source source source toxin data data data A+B [Presen ce] in Stool Cryptos NOT NOT No No No Sep 15 poridiu DETECTE DETECTE informa informa informa 2017 m sp Ag D tion in tion in tion in source source source [Presen data data data ce] in Unspeci fied specime n Cyclosp NOT NOT No No No Sep 15 ora DETECTE DETECTE informa informa informa 2017 cayetan D tion in tion in tion in estelle source source source [Presen data data data ce] in Unspeci fied specime n Escheri NOT NOT No No No Sep 15 emmy DETECTE DETECTE informa informa informa 2017 coli D tion in tion in tion in [Presen source source source ce] in data data data Unspeci fied specime n by Culture FDA method Escheri NOT NOT No No No Sep 15 emmy DETECTE DETECTE informa informa informa 2017 coli D tion in tion in tion in [Presen source source source ce] in data data data Unspeci fied specime n by Culture FDA method Escheri NOT NOT No No No Sep 15 emmy DETECTE DETECTE informa informa informa 2017 coli D tion in tion in tion in Shiga-l source source source diana data data data toxin 1 assa Escheri NOT NOT No No No Sep 15 emmy DETECTE DETECTE informa informa informa 2017 coli D tion in tion in tion in [id number] source source source data data data [Presen ce] in Stool by Organis m specifi c culture Entamoe NOT NOT No No No Sep 15 ba DETECTE DETECTE informa informa informa 2017 histoly D tion in tion in tion in rikki source source source [Presen data data data ce] in Stool by Trichro me stain Giardia NOT NOT No No No Sep 15 DETECTE DETECTE informa informa informa 2017 lamblia D tion in tion in tion in Ag source source source [Presen data data data ce] in Stool Norovir NOT NOT No No No Sep 15 us Ag DETECTE DETECTE informa informa informa 2017 [Presen D tion in tion in tion in ce] in source source source Stool data data data Stool NOT NOT No No No Sep 15 Plesiom DETECTE DETECTE informa informa informa 2017 onas D tion in tion in tion in shigell source source source oides data data data DNA detec Rotavir NOT NOT No No No Sep 15 us RNA DETECTE DETECTE informa informa informa 2017 detecti D tion in tion in tion in on by source source source probe data data data and tar Salmone NOT NOT No No No Sep 15 lla sp DETECTE DETECTE informa informa informa 2017 DNA D tion in tion in tion in [Identi source source source fier] data data data in Unspeci fied specime n by Probe & target amplifi cation method Caliciv NOT NOT No No No Sep 15 irus DETECTE DETECTE informa informa informa 2017 [Identi D tion in tion in tion in fier] source source source in data data data Stool by Electro n microsc opy Escheri NOT NOT No No No Sep 15 emmy DETECTE DETECTE informa informa informa 2017 coli D tion in tion in tion in [Presen source source source ce] in data data data Unspeci fied specime n by Culture FDA method Escheri NOT NOT No No No Sep 15 emmy DETECTE DETECTE informa informa informa 2017 coli D tion in tion in tion in SXT source source source gene+H7 data data data gene [Identi fier] in Unspeci fied specime n by Probe & target amplifi cation method Vibrio NOT NOT No No No Sep 15 cholera DETECTE DETECTE informa informa informa 2017 e DNA D tion in tion in tion in [Presen source source source ce] in data data data Unspeci fied specime n by Probe & target amplifi cation method Vibrio NOT NOT No No No Sep 15 sp DNA DETECTE DETECTE informa informa informa 2017 [Identi D tion in tion in tion in fier] source source source in data data data Unspeci fied specime n by Probe & target amplifi cation method Vibrio NOT NOT No No No Sep 15 sp DETECTE DETECTE informa informa informa 2017 identif D tion in tion in tion in ied in source source source Stool data data data by Organis m specifi c culture CBC W Auto Differential panel in Blood Observa Value Referen Units Interpr Notes Date tion ce etation Range Basophils 0 - 0.2 K/MM3 Normal No Sep 6 informati 2017 6:22 [#/volume on in AM ] in source Blood by data Automated count Basophils 0.1 - 2.0 % Normal No Sep 6 /100 informati 2017 6:22 leukocyte on in AM s in source Blood by data Automated count Eosinophi 0.0 - 0.4 K/mm3 Normal No Sep 6 ls informati 2016 6:22 [#/volume on in AM ] in source Blood by data Automated count Eosinophi 0.1 - % Normal No Sep 6 ls/100 12.0 informati 2017 6:22 leukocyte on in AM s in source Blood by data Automated count Granulocy 1.8 - 7.8 K/mm3 High No Sep 6 colten informati 2017 6:22 [#/volume on in AM ] in source Blood by data Automated count Granulocy 37.0 - % High No Sep 6 colten/100 80.0 informati 2017 6:22 leukocyte on in AM s in source Blood by data Automated count Hematocri 37.0 - % Low No Sep 6 t [Volume 47.0 informati 2017 6:22 on in AM Fraction] source of Blood data Hemoglobi 12.2 - g/dL Low No Sep 6 n 16.2 informati 2017 6:22 [Mass/vol on in AM ume] in source Blood data Lymphocyt 0.7 - 4.5 K/mm3 Normal No Sep 6 es informati 2017 6:22 [#/volume on in AM ] in source Unspecifi data ed specimen by Automated count Lymphocyt 10 - 50.0 % Low No Sep 6 es informati 2017 6:22 [#/volume on in AM ] in source Unspecifi data ed specimen by Automated count Erythrocy 27 - 31.2 pg Normal No Sep 6 te mean informati 2017 6:22 corpuscul on in AM ar source hemoglobi data n [Entitic mass] Erythrocy 31.8 - g/dl Normal No Sep 6 te mean 35.4 informati 2017 6:22 corpuscul on in AM ar source hemoglobi data n concentra tion [Mass/vol ume] by Automated count Erythrocy 82.2 - fl Normal No Sep 6 te mean 97.8 informati 2017 6:22 corpuscul on in AM ar volume source [Entitic data volume] by Automated count Monocytes 0.1 - 1.0 K/mm3 Normal No Sep 6 informati 2017 6:22 [#/volume on in AM ] in source Blood by data Automated count Monocytes 1.7 - 9.3 % Normal No Sep 6 /100 informati 2017 6:22 leukocyte on in AM s in source Blood by data Automated count Platelet 7.4 - fl Low No Sep 6 mean 10.4 informati 2017 6:22 volume on in AM [Entitic source volume] data in Blood by Automated count Platelets 142 - 424 K/mm3 Normal No Sep 6 informati 2017 6:22 [#/volume on in AM ] in source Blood data Erythrocy 4.2 - 5.4 M/mm3 Low No Sep 6 colten informati 2017 6:22 [#/volume on in AM ] in source Amniotic data fluid Erythrocy 11.5 - % Normal No Sep 6 te 17.5 informati 2017 6:22 distribut on in AM ion width source [Entitic data volume] by Automated count Leukocyte 4.8 - K/MM3 High No Sep 6 s 10.8 informati 2017 6:22 [#/volume on in AM ] in source Blood data CBC W Auto Differential panel in Blood Observa Value Referen Units Interpr Notes Date tion ce etation Range Basophils 0 - 0.2 K/MM3 Normal No Sep 5 informati 2016 7:53 [#/volume on in AM ] in source Blood by data Automated count Basophils 0.1 - 2.0 % Normal No Sep 5 /100 informati 2016 7:53 leukocyte on in AM s in source Blood by data Automated count Eosinophi 0.0 - 0.4 K/mm3 Normal No Sep 5 ls informati 2016 7:53 [#/volume on in AM ] in source Blood by data Automated count Eosinophi 0.1 - % Normal No Sep 5 ls/100 12.0 informati 2016 7:53 leukocyte on in AM s in source Blood by data Automated count Granulocy 1.8 - 7.8 K/mm3 High No Sep 5 colten informati 2016 7:53 [#/volume on in AM ] in source Blood by data Automated count Granulocy 37.0 - % High No Sep 5 colten/100 80.0 informati 2016 7:53 leukocyte on in AM s in source Blood by data Automated count Hematocri 37.0 - % Low No Sep 5 t [Volume 47.0 informati 2017 7:53 on in AM Fraction] source of Blood data Hemoglobi 12.2 - g/dL Low No Sep 5 n 16.2 informati 2017 7:53 [Mass/vol on in AM ume] in source Blood data Lymphocyt 0.7 - 4.5 K/mm3 Normal No Sep 5 es informati 2016 7:53 [#/volume on in AM ] in source Unspecifi data ed specimen by Automated count Lymphocyt 10 - 50.0 % Low No Sep 5 es informati 2016 7:53 [#/volume on in AM ] in source Unspecifi data ed specimen by Automated count Erythrocy 27 - 31.2 pg Normal No Sep 5 te mean informati 2017 7:53 corpuscul on in AM ar source hemoglobi data n [Entitic mass] Erythrocy 31.8 - g/dl Low No Sep 5 te mean 35.4 informati 2016 7:53 corpuscul on in AM ar source hemoglobi data n concentra tion [Mass/vol ume] by Automated count Erythrocy 82.2 - fl Normal No Sep 5 te mean 97.8 informati 2017 7:53 corpuscul on in AM ar volume source [Entitic data volume] by Automated count Monocytes 0.1 - 1.0 K/mm3 Normal No Sep 5 informati 2017 7:53 [#/volume on in AM ] in source Blood by data Automated count Monocytes 1.7 - 9.3 % Normal No Sep 5 /100 informati 2017 7:53 leukocyte on in AM s in source Blood by data Automated count Platelet 7.4 - fl Low No Sep 5 mean 10.4 informati 2017 7:53 volume on in AM [Entitic source volume] data in Blood by Automated count Platelets 142 - 424 K/mm3 High No Sep 5 informati 2017 7:53 [#/volume on in AM ] in source Blood data Erythrocy 4.2 - 5.4 M/mm3 Low No Sep 5 colten informati 2016 7:53 [#/volume on in AM ] in source Amniotic data fluid Erythrocy 11.5 - % Normal No Sep 5 te 17.5 informati 2016 7:53 distribut on in AM ion width source [Entitic data volume] by Automated count Leukocyte 4.8 - K/MM3 High No Sep 5 s 10.8 informati 2016 7:53 [#/volume on in AM ] in source Blood data Differential panel, method unspecified - Observa Value Referen Units Interpr Notes Date tion ce etation Range Neutrophi 0 - 8 % Normal No Sep 5 ls.band informati 2017 7:53 form/100 on in AM leukocyte source s in data Blood by Automated count Basophils 0 - 1 % High No Sep 5 /100 informati 2016 7:53 leukocyte on in AM s in source Blood by data Automated count Eosinophi 0 - 3 % Normal No Sep 5 ls/100 informati 2016 7:53 leukocyte on in AM s in source Blood by data Manual count Hypochr 1+ No No No No Sep 5 omia informa informa informa informa 2017 [Presen tion in tion in tion in tion in 7:53 AM ce] in source source source source Blood data data data data LYMPH 13 10 - 50 % Normal No Sep 5 informa 2017 tion in 7:53 AM source data Metamyelo 0 - 1 % Normal No Sep 5 cytes/100 informati 2017 7:53 on in AM leukocyte source s in data Blood by Manual count Monocytes 2 - 9 % Normal No Sep 5 /100 informati 2016 7:53 leukocyte on in AM s in source Blood by data Automated count Platele SLIGHT No No No No Sep 5 ts INCREAS informa informa informa informa 2016 [Presen E tion in tion in tion in tion in 7:53 AM ce] in source source source source Blood data data data data by Light microsc opy Neutrophi 42 - 76 % Normal No Sep 5 ls informati 2016 7:53 [#/volume on in AM ] in source Blood by data Automated count Cells No #CELLS No No Sep 5 Counted informati informati informati 2017 7:53 Total [#] on in on in on in AM in Blood source source source data data data Basic metabolic panel in Blood Observa Value Referen Units Interpr Notes Date tion ce etation Range Urea 7 - 18 mg/dL Low No Sep 3 nitrogen informati 2017 6:17 [Mass/vol on in AM ume] in source Serum or data Plasma Calcium 8.5 - mg/dL Low No Sep 3 [Mass/vol 10.1 informati 2017 6:17 ume] in on in AM Serum or source Plasma data Chloride 98 - 107 mmoL/L Normal No Sep 3 [Moles/vo informati 2017 6:17 lume] in on in AM Serum or source Plasma data Carbon 21.0 - mmoL/L Normal No Sep 3 dioxide, 32.0 informati 2017 6:17 total on in AM [Moles/vo source lume] in data Serum or Plasma Creatinin 0.55 - mg/dL Normal No Sep 3 e 1.02 informati 2017 6:17 [Mass/vol on in AM ume] in source Serum or data Plasma Creatinin 50 - 200 ML/MIN Normal No Sep 3 e renal informati 2017 6:17 clearance on in AM source predicted data by Cockcroft -Gault formula Estimated 59- ML/MIN No REFERENCE Sep 3 informati RANGE: 2017 6:17 glomerula on in >60 AM r source ML/MIN/1. filtratio data 73 SQUARE n rate METERSIf (GF this patient is -A merican, then multiply theresult by 1.210. Glucose 74 - 106 mg/dL High No Sep 3 [Mass/vol informati 2017 6:17 ume] in on in AM Serum or source Plasma data Potassium 3.5 - 5.1 mmoL/L Low No Sep 3 informati 2017 6:17 [Moles/vo on in AM lume] in source Serum or data Plasma Sodium 136 - 145 mmoL/L Normal No Sep 3 [Moles/vo informati 2017 6:17 lume] in on in AM Serum or source Plasma data CBC W Auto Differential panel in Blood Observa Value Referen Units Interpr Notes Date tion ce etation Range Basophils 0 - 0.2 K/MM3 Normal No Sep 3 informati 2016 6:17 [#/volume on in AM ] in source Blood by data Automated count Basophils 0.1 - 2.0 % Normal No Sep 3 /100 informati 2017 6:17 leukocyte on in AM s in source Blood by data Automated count Eosinophi 0.0 - 0.4 K/mm3 Normal No Sep 3 ls informati 2016 6:17 [#/volume on in AM ] in source Blood by data Automated count Eosinophi 0.1 - % Normal No Sep 3 ls/100 12.0 informati 2016 6:17 leukocyte on in AM s in source Blood by data Automated count Granulocy 1.8 - 7.8 K/mm3 High No Sep 3 colten informati 2017 6:17 [#/volume on in AM ] in source Blood by data Automated count Granulocy 37.0 - % High No Sep 3 colten/100 80.0 informati 2017 6:17 leukocyte on in AM s in source Blood by data Automated count Hematocri 37.0 - % Low No Sep 3 t [Volume 47.0 informati 2016 6:17 on in AM Fraction] source of Blood data Hemoglobi 12.2 - g/dL Low No Sep 3 n 16.2 informati 2017 6:17 [Mass/vol on in AM ume] in source Blood data Lymphocyt 0.7 - 4.5 K/mm3 Normal No Sep 3 es informati 2017 6:17 [#/volume on in AM ] in source Unspecifi data ed specimen by Automated count Lymphocyt 10 - 50.0 % Low No Sep 3 es informati 2017 6:17 [#/volume on in AM ] in source Unspecifi data ed specimen by Automated count Erythrocy 27 - 31.2 pg Normal No Sep 3 te mean informati 2017 6:17 corpuscul on in AM ar source hemoglobi data n [Entitic mass] Erythrocy 31.8 - g/dl Low No Sep 3 te mean 35.4 informati 2017 6:17 corpuscul on in AM ar source hemoglobi data n concentra tion [Mass/vol ume] by Automated count Erythrocy 82.2 - fl Normal No Sep 3 te mean 97.8 informati 2017 6:17 corpuscul on in AM ar volume source [Entitic data volume] by Automated count Monocytes 0.1 - 1.0 K/mm3 Normal No Sep 3 informati 2017 6:17 [#/volume on in AM ] in source Blood by data Automated count Monocytes 1.7 - 9.3 % Normal No Sep 3 /100 informati 2017 6:17 leukocyte on in AM s in source Blood by data Automated count Platelet 7.4 - fl Low No Sep 3 mean 10.4 informati 2017 6:17 volume on in AM [Entitic source volume] data in Blood by Automated count Platelets 142 - 424 K/mm3 High No Sep 3 informati 2017 6:17 [#/volume on in AM ] in source Blood data Erythrocy 4.2 - 5.4 M/mm3 Low No Sep 3 colten informati 2017 6:17 [#/volume on in AM ] in source Amniotic data fluid Erythrocy 11.5 - % Normal No Sep 3 te 17.5 informati 2017 6:17 distribut on in AM ion width source [Entitic data volume] by Automated count Leukocyte 4.8 - K/MM3 High No Sep 3 s 10.8 informati 2017 6:17 [#/volume on in AM ] in source Blood data CBC W Auto Differential panel in Blood Observa Value Referen Units Interpr Notes Date tion ce etation Range Basophils 0 - 0.2 K/MM3 Normal No Sep 2 informati 2017 7:05 [#/volume on in AM ] in source Blood by data Automated count Basophils 0.1 - 2.0 % Normal No Sep 2 /100 informati 2016 7:05 leukocyte on in AM s in source Blood by data Automated count Eosinophi 0.0 - 0.4 K/mm3 Normal No Sep 2 ls informati 2016 7:05 [#/volume on in AM ] in source Blood by data Automated count Eosinophi 0.1 - % Normal No Sep 2 ls/100 12.0 informati 2016 7:05 leukocyte on in AM s in source Blood by data Automated count Granulocy 1.8 - 7.8 K/mm3 High No Sep 2 colten informati 2017 7:05 [#/volume on in AM ] in source Blood by data Automated count Granulocy 37.0 - % High No Sep 2 colten/100 80.0 informati 2017 7:05 leukocyte on in AM s in source Blood by data Automated count Hematocri 37.0 - % Low No Sep 2 t [Volume 47.0 informati 2017 7:05 on in AM Fraction] source of Blood data Hemoglobi 12.2 - g/dL Low No Sep 2 n 16.2 informati 2017 7:05 [Mass/vol on in AM ume] in source Blood data Lymphocyt 0.7 - 4.5 K/mm3 Normal No Sep 2 es informati 2017 7:05 [#/volume on in AM ] in source Unspecifi data ed specimen by Automated count Lymphocyt 10 - 50.0 % Low No Sep 2 es informati 2017 7:05 [#/volume on in AM ] in source Unspecifi data ed specimen by Automated count Erythrocy 27 - 31.2 pg Normal No Sep 2 te mean informati 2017 7:05 corpuscul on in AM ar source hemoglobi data n [Entitic mass] Erythrocy 31.8 - g/dl Normal No Sep 2 te mean 35.4 informati 2017 7:05 corpuscul on in AM ar source hemoglobi data n concentra tion [Mass/vol ume] by Automated count Erythrocy 82.2 - fl Normal No Sep 2 te mean 97.8 informati 2017 7:05 corpuscul on in AM ar volume source [Entitic data volume] by Automated count Monocytes 0.1 - 1.0 K/mm3 Normal No Sep 2 informati 2017 7:05 [#/volume on in AM ] in source Blood by data Automated count Monocytes 1.7 - 9.3 % Normal No Sep 2 /100 informati 2017 7:05 leukocyte on in AM s in source Blood by data Automated count Platelet 7.4 - fl Low No Sep 2 mean 10.4 informati 2017 7:05 volume on in AM [Entitic source volume] data in Blood by Automated count Platelets 142 - 424 K/mm3 High No Sep 2 informati 2017 7:05 [#/volume on in AM ] in source Blood data Erythrocy 4.2 - 5.4 M/mm3 Low No Sep 2 colten informati 2017 7:05 [#/volume on in AM ] in source Amniotic data fluid Erythrocy 11.5 - % Normal No Sep 2 te 17.5 informati 2017 7:05 distribut on in AM ion width source [Entitic data volume] by Automated count Leukocyte 4.8 - K/MM3 High No Sep 2 s 10.8 informati 2017 7:05 [#/volume on in AM ] in source Blood data Differential panel, method unspecified - Observa Value Referen Units Interpr Notes Date tion ce etation Range Neutrophi 0 - 8 % Normal No Sep 2 ls.band informati 2017 7:05 form/100 on in AM leukocyte source s in data Blood by Automated count Eosinophi 0 - 3 % Normal No Sep 2 ls/100 informati 2017 7:05 leukocyte on in AM s in source Blood by data Manual count LYMPH 6 10 - 50 % Low No Sep 2 informa 2017 tion in 7:05 AM source data Monocytes 2 - 9 % Normal No Sep 2 /100 informati 2017 7:05 leukocyte on in AM s in source Blood by data Automated count Platele NORMAL No No No No Sep 2 ts informa informa informa informa 2017 [Presen tion in tion in tion in tion in 7:05 AM ce] in source source source source Blood data data data data by Light microsc opy Neutrophi 42 - 76 % High No Sep 2 ls informati 2016 7:05 [#/volume on in AM ] in source Blood by data Automated count Cells No #CELLS No No Sep 2 Counted informati informati informati 2017 7:05 Total [#] on in on in on in AM in Blood source source source data data data Basic metabolic panel in Blood Observa Value Referen Units Interpr Notes Date tion ce etation Range Urea 7 - 18 mg/dL Low No Sep 2 nitrogen informati 2017 7:05 [Mass/vol on in AM ume] in source Serum or data Plasma Calcium 8.5 - mg/dL Low No Sep 2 [Mass/vol 10.1 informati 2017 7:05 ume] in on in AM Serum or source Plasma data Chloride 98 - 107 mmoL/L Normal No Sep 2 [Moles/vo informati 2017 7:05 lume] in on in AM Serum or source Plasma data Carbon 21.0 - mmoL/L Normal No Sep 2 dioxide, 32.0 informati 2017 7:05 total on in AM [Moles/vo source lume] in data Serum or Plasma Creatinin 0.55 - mg/dL Normal No Sep 2 e 1.02 informati 2017 7:05 [Mass/vol on in AM ume] in source Serum or data Plasma Creatinin 50 - 200 ML/MIN Normal No Sep 2 e renal informati 2017 7:05 clearance on in AM source predicted data by Cockcroft -Gault formula Estimated 59- ML/MIN No REFERENCE Sep 2 informati RANGE: 2017 7:05 glomerula on in >60 AM r source ML/MIN/1. filtratio data 73 SQUARE n rate METERSIf (GF this patient is -A merican, then multiply theresult by 1.210. Glucose 74 - 106 mg/dL High No Sep 2 [Mass/vol informati 2017 7:05 ume] in on in AM Serum or source Plasma data Potassium 3.5 - 5.1 mmoL/L Low alert Sep 2 2017 7:05 [Moles/vo CRITICAL AM lume] in RESULTS Serum or Plasma RESU LTS CALLED TO: [facility] 05/10/17 0756 Jamaal,Rich meagan Sodium 136 - 145 mmoL/L Normal No Sep 2 [Moles/vo informati 2017 7:05 lume] in on in AM Serum or source Plasma data CBC W Auto Differential panel in Blood Observa Value Referen Units Interpr Notes Date tion ce etation Range Basophils 0 - 0.2 K/MM3 Normal No Sep 1 informati 2017 6:20 [#/volume on in AM ] in source Blood by data Automated count Basophils 0.1 - 2.0 % Normal No Sep 1 /100 informati 2017 6:20 leukocyte on in AM s in source Blood by data Automated count Eosinophi 0.0 - 0.4 K/mm3 Normal No Sep 1 ls informati 2017 6:20 [#/volume on in AM ] in source Blood by data Automated count Eosinophi 0.1 - % Normal No Sep 1 ls/100 12.0 informati 2016 6:20 leukocyte on in AM s in source Blood by data Automated count Granulocy 1.8 - 7.8 K/mm3 High No Sep 1 colten informati 2017 6:20 [#/volume on in AM ] in source Blood by data Automated count Granulocy 37.0 - % High No Sep 1 colten/100 80.0 informati 2017 6:20 leukocyte on in AM s in source Blood by data Automated count Hematocri 37.0 - % Low No Sep 1 t [Volume 47.0 informati 2017 6:20 on in AM Fraction] source of Blood data Hemoglobi 12.2 - g/dL Low No Sep 1 n 16.2 informati 2017 6:20 [Mass/vol on in AM ume] in source Blood data Lymphocyt 0.7 - 4.5 K/mm3 Normal No Sep 1 es informati 2017 6:20 [#/volume on in AM ] in source Unspecifi data ed specimen by Automated count Lymphocyt 10 - 50.0 % Low No Sep 1 es informati 2017 6:20 [#/volume on in AM ] in source Unspecifi data ed specimen by Automated count Erythrocy 27 - 31.2 pg Normal No Sep 1 te mean informati 2017 6:20 corpuscul on in AM ar source hemoglobi data n [Entitic mass] Erythrocy 31.8 - g/dl Normal No Sep 1 te mean 35.4 informati 2017 6:20 corpuscul on in AM ar source hemoglobi data n concentra tion [Mass/vol ume] by Automated count Erythrocy 82.2 - fl Normal No Sep 1 te mean 97.8 informati 2017 6:20 corpuscul on in AM ar volume source [Entitic data volume] by Automated count Monocytes 0.1 - 1.0 K/mm3 Normal No Sep 1 informati 2017 6:20 [#/volume on in AM ] in source Blood by data Automated count Monocytes 1.7 - 9.3 % Normal No Sep 1 /100 informati 2017 6:20 leukocyte on in AM s in source Blood by data Automated count Platelet 7.4 - fl Low No Sep 1 mean 10.4 informati 2017 6:20 volume on in AM [Entitic source volume] data in Blood by Automated count Platelets 142 - 424 K/mm3 High No Sep 1 informati 2017 6:20 [#/volume on in AM ] in source Blood data Erythrocy 4.2 - 5.4 M/mm3 Low No Sep 1 colten informati 2017 6:20 [#/volume on in AM ] in source Amniotic data fluid Erythrocy 11.5 - % Normal No Sep 1 te 17.5 informati 2017 6:20 distribut on in AM ion width source [Entitic data volume] by Automated count Leukocyte 4.8 - K/MM3 High No Sep 1 s 10.8 informati 2016 6:20 [#/volume on in AM ] in source Blood data Differential panel, method unspecified - Observa Value Referen Units Interpr Notes Date tion ce etation Range Neutrophi 0 - 8 % Normal No Sep 1 ls.band informati 2017 6:20 form/100 on in AM leukocyte source s in data Blood by Automated count Eosinophi 0 - 3 % High No Sep 1 ls/100 informati 2017 6:20 leukocyte on in AM s in source Blood by data Manual count LYMPH 9 10 - 50 % Low No Sep 1 inform2016 tion in 6:20 AM source data Monocytes 2 - 9 % Normal No Sep 1 /100 informati 2017 6:20 leukocyte on in AM s in source Blood by data Automated count Platele NORMAL No No No No Sep 1 ts informa informa informa informa 2016 [Presen tion in tion in tion in tion in 6:20 AM ce] in source source source source Blood data data data data by Light microsc opy Neutrophi 42 - 76 % High No Sep 1 ls informati 2016 6:20 [#/volume on in AM ] in source Blood by data Automated count Cells No #CELLS No No Sep 1 Counted informati informati informati 2017 6:20 Total [#] on in on in on in AM in Blood source source source data data data DIARRHEA PANEL,PCR Observa Value Referen Units Interpr Notes Date tion ce etation Range Adenovi NOT NOT No No No Sep 1 manuel DETECTE DETECTE informa informa informa 2017 40+41 D tion in tion in tion in 12:20 Ag source source source AM [Presen data data data ce] in Stool Aeromon NOT NOT No No No Sep 1 as DETECTE DETECTE informa informa informa 2017 salmoni D tion in tion in tion in 12:20 alysa source source source AM [Presen data data data ce] in Unspeci fied specime n Astrovi NOT NOT No No No Sep 1 manuel DETECTE DETECTE informa informa informa 2017 [Presen D tion in tion in tion in 12:20 ce] in source source source AM Stool data data data by Electro n microsc opy Campylo NOT NOT No No No Sep 1 bacter DETECTE DETECTE informa informa informa 2017 sp Ab D tion in tion in tion in 12:20 [Presen source source source AM ce] in data data data Serum Clostri NOT NOT No No No Sep 1 dium DETECTE DETECTE informa informa informa 2017 diffici D tion in tion in tion in 12:20 le source source source AM toxin data data data A+B [Presen ce] in Stool Cryptos NOT NOT No No No Sep 1 poridiu DETECTE DETECTE informa informa informa 2017 m sp Ag D tion in tion in tion in 12:20 source source source AM [Presen data data data ce] in Unspeci fied specime n Cyclosp NOT NOT No No No Sep 1 ora DETECTE DETECTE informa informa informa 2017 cayetan D tion in tion in tion in 12:20 estelle source source source AM [Presen data data data ce] in Unspeci fied specime n Escheri NOT NOT No No No Sep 1 emmy DETECTE DETECTE informa informa informa 2017 coli D tion in tion in tion in 12:20 [Presen source source source AM ce] in data data data Unspeci fied specime n by Culture FDA method Escheri DETECTE NOT No Abnorma No Sep 1 emmy D DETECTE informa l informa 2017 coli tion in tion in 12:20 [Presen source source AM ce] in data data Unspeci fied specime n by Culture FDA method Escheri NOT NOT No No No Sep 1 emmy DETECTE DETECTE informa informa informa 2017 coli D tion in tion in tion in 12:20 Shiga-l source source source AM diana data data data toxin 1 assa Escheri NOT NOT No No No Sep 1 emmy DETECTE DETECTE informa informa informa 2017 coli D tion in tion in tion in 12:20 [id number] source source source AM data data data [Presen ce] in Stool by Organis m specifi c culture Entamoe NOT NOT No No No Sep 1 ba DETECTE DETECTE informa informa informa 2017 histoly D tion in tion in tion in 12:20 rikki source source source AM [Presen data data data ce] in Stool by Trichro me stain Giardia NOT NOT No No No Sep 1 DETECTE DETECTE informa informa informa 2017 lamblia D tion in tion in tion in 12:20 Ag source source source AM [Presen data data data ce] in Stool Norovir NOT NOT No No No Sep 1 us Ag DETECTE DETECTE informa informa informa 2016 [Presen D tion in tion in tion in 12:20 ce] in source source source AM Stool data data data Stool NOT NOT No No No Sep 1 Plesiom DETECTE DETECTE informa informa informa 2017 onas D tion in tion in tion in 12:20 shigell source source source AM oides data data data DNA detec Rotavir NOT NOT No No No Sep 1 us RNA DETECTE DETECTE informa informa informa 2017 detecti D tion in tion in tion in 12:20 on by source source source AM probe data data data and tar Salmone NOT NOT No No No Sep 1 lla sp DETECTE DETECTE informa informa informa 2017 DNA D tion in tion in tion in 12:20 [Identi source source source AM fier] data data data in Unspeci fied specime n by Probe & target amplifi cation method Caliciv NOT NOT No No No Sep 1 irus DETECTE DETECTE informa informa informa 2016 [Identi D tion in tion in tion in 12:20 fier] source source source AM in data data data Stool by Electro n microsc opy Escheri NOT NOT No No No Sep 1 emmy DETECTE DETECTE informa informa informa 2016 coli D tion in tion in tion in 12:20 [Presen source source source AM ce] in data data data Unspeci fied specime n by Culture FDA method Escheri NOT NOT No No No Sep 1 emmy DETECTE DETECTE informa informa informa 2017 coli D tion in tion in tion in 12:20 SXT source source source AM gene+H7 data data data gene [Identi fier] in Unspeci fied specime n by Probe & target amplifi cation method Vibrio NOT NOT No No No Sep 1 cholera DETECTE DETECTE informa informa informa 2017 e DNA D tion in tion in tion in 12:20 [Presen source source source AM ce] in data data data Unspeci fied specime n by Probe & target amplifi cation method Vibrio NOT NOT No No No Sep 1 sp DNA DETECTE DETECTE informa informa informa 2016 [Identi D tion in tion in tion in 12:20 fier] source source source AM in data data data Unspeci fied specime n by Probe & target amplifi cation method Vibrio NOT NOT No No No Sep 1 sp DETECTE DETECTE informa informa informa 2016 identif D tion in tion in tion in 12:20 ied in source source source AM Stool data data data by Sheyla m specifi c culture Hemoglobin.gastrointestinal [Presence] in Stool Observa Value Referen Units Interpr Notes Date tion ce etation Range Collected by nurse? Y Hold specimen in OE? N Hemoglo POSITIV NEG No No No Sep 1 bin.gas E informa informa informa 2016 trointe tion in tion in tion in 12:20 stinal source source source AM [Presen data data data ce] in Stool --1st specime n CBC W Auto Differential panel in Blood Observa Value Referen Units Interpr Notes Date tion ce etation Range Basophils 0 - 0.2 K/MM3 Normal No May 08 inform2016 6:30 [#/volume on in AM ] in source Blood by data Automated count Basophils 0.1 - 2.0 % Normal No May 08 informati 2016 6:30 leukocyte on in AM s in source Blood by data Automated count Eosinophi 0.0 - 0.4 K/mm3 Normal No May 08 ls informati 2016 6:30 [#/volume on in AM ] in source Blood by data Automated count Eosinophi 0.1 - % Normal No May 08 ls/100 12.0 informati 2016 6:30 leukocyte on in AM s in source Blood by data Automated count Granulocy 1.8 - 7.8 K/mm3 High No May 08 colten informati 2016 6:30 [#/volume on in AM ] in source Blood by data Automated count Granulocy 37.0 - % High No May 08 colten/100 80.0 informati 2016 6:30 leukocyte on in AM s in source Blood by data Automated count Hematocri 37.0 - % Low No May 08 t [Volume 47.0 informati 2017 6:30 on in AM Fraction] source of Blood data Hemoglobi 12.2 - g/dL Low No May 08 n 16.2 informati 2017 6:30 [Mass/vol on in AM ume] in source Blood data Lymphocyt 0.7 - 4.5 K/mm3 Normal No May 08 es informati 2017 6:30 [#/volume on in AM ] in source Unspecifi data ed specimen by Automated count Lymphocyt 10 - 50.0 % Low No May 08 es informati 2017 6:30 [#/volume on in AM ] in source Unspecifi data ed specimen by Automated count Erythrocy 27 - 31.2 pg Normal No May 08 te mean informati 2017 6:30 corpuscul on in AM ar source hemoglobi data n [Entitic mass] Erythrocy 31.8 - g/dl Low No May 08 te mean 35.4 informati 2017 6:30 corpuscul on in AM ar source hemoglobi data n concentra tion [Mass/vol ume] by Automated count Erythrocy 82.2 - fl Normal No May 08 te mean 97.8 informati 2017 6:30 corpuscul on in AM ar volume source [Entitic data volume] by Automated count Monocytes 0.1 - 1.0 K/mm3 Normal No May 08 informati 2017 6:30 [#/volume on in AM ] in source Blood by data Automated count Monocytes 1.7 - 9.3 % Normal No May 08 /100 informati 2017 6:30 leukocyte on in AM s in source Blood by data Automated count Platelet 7.4 - fl Low May 08 mean 10.4 informati 2017 6:30 volume on in AM [Entitic source volume] data in Blood by Automated count Platelets 142 - 424 K/mm3 Normal No May 08 informati 2017 6:30 [#/volume on in AM ] in source Blood data Erythrocy 4.2 - 5.4 M/mm3 Low No May 08 colten informati 2017 6:30 [#/volume on in AM ] in source Amniotic data fluid Erythrocy 11.5 - % Normal No May 08 te 17.5 informati 2017 6:30 distribut on in AM ion width source [Entitic data volume] by Automated count Leukocyte 4.8 - K/MM3 High No May 08 s 10.8 informati 2017 6:30 [#/volume on in AM ] in source Blood data Basic metabolic panel in Blood Observa Value Referen Units Interpr Notes Date tion ce etation Range Urea 7 - 18 mg/dL No No May 08 nitrogen informati informati 2016 6:30 [Mass/vol on in on in AM ume] in source source Serum or data data Plasma Calcium 8.5 - mg/dL Low No May 08 [Mass/vol 10.1 informati 2016 6:30 ume] in on in AM Serum or source Plasma data Chloride 98 - 107 mmoL/L Normal No May 08 [Moles/vo informati 2016 6:30 lume] in on in AM Serum or source Plasma data Carbon 21.0 - mmoL/L Normal No May 08 dioxide, 32.0 informati 2016 6:30 total on in AM [Moles/vo source lume] in data Serum or Plasma Creatinin 0.55 - mg/dL Normal No May 08 e 1.02 informati 2016 6:30 [Mass/vol on in AM ume] in source Serum or data Plasma Creatinin 50 - 200 ML/MIN Normal No May 08 e renal informati 2016 6:30 clearance on in AM source predicted data by Cockcroft -Gault formula Estimated 59- ML/MIN No REFERENCE May 08 informati RANGE: 2017 6:30 glomerula on in >60 AM r source ML/MIN/1. filtratio data 73 SQUARE n rate METERSIf (GF this patient is -A merican, then multiply theresult by 1.210. Glucose 74 - 106 mg/dL Normal No May 08 [Mass/vol informati 2016 6:30 ume] in on in AM Serum or source Plasma data Potassium 3.5 - 5.1 mmoL/L Low No May 08 informati 2016 6:30 [Moles/vo on in AM lume] in source Serum or data Plasma Sodium 136 - 145 mmoL/L Normal No May 08 [Moles/vo informati 2017 6:30 lume] in on in AM Serum or source Plasma data CBC W Auto Differential panel in Blood Observa Value Referen Units Interpr Notes Date tion ce etation Range Basophils 0 - 0.2 K/MM3 Normal No May 07 informati 2016 6:11 [#/volume on in AM ] in source Blood by data Automated count Basophils 0.1 - 2.0 % Normal No Aug 30 /100 informati 2017 6:11 leukocyte on in AM s in source Blood by data Automated count Eosinophi 0.0 - 0.4 K/mm3 Normal No May 07 ls informati 2017 6:11 [#/volume on in AM ] in source Blood by data Automated count Eosinophi 0.1 - % Normal No May 07 ls/100 12.0 informati 2017 6:11 leukocyte on in AM s in source Blood by data Automated count Granulocy 1.8 - 7.8 K/mm3 High No May 07 colten informati 2017 6:11 [#/volume on in AM ] in source Blood by data Automated count Granulocy 37.0 - % High No May 07 colten/100 80.0 informati 2017 6:11 leukocyte on in AM s in source Blood by data Automated count Hematocri 37.0 - % Low No May 07 t [Volume 47.0 informati 2017 6:11 on in AM Fraction] source of Blood data Hemoglobi 12.2 - g/dL Low May 07 n 16.2 informati 2017 6:11 [Mass/vol on in AM ume] in source Blood data Lymphocyt 0.7 - 4.5 K/mm3 Normal No May 07 es informati 2017 6:11 [#/volume on in AM ] in source Unspecifi data ed specimen by Automated count Lymphocyt 10 - 50.0 % Low No May 07 es informati 2017 6:11 [#/volume on in AM ] in source Unspecifi data ed specimen by Automated count Erythrocy 27 - 31.2 pg Normal No May 07 te mean informati 2017 6:11 corpuscul on in AM ar source hemoglobi data n [Entitic mass] Erythrocy 31.8 - g/dl Low No May 07 te mean 35.4 informati 2017 6:11 corpuscul on in AM ar source hemoglobi data n concentra tion [Mass/vol ume] by Automated count Erythrocy 82.2 - fl Normal No May 07 te mean 97.8 informati 2017 6:11 corpuscul on in AM ar volume source [Entitic data volume] by Automated count Monocytes 0.1 - 1.0 K/mm3 Normal No May 07 informati 2017 6:11 [#/volume on in AM ] in source Blood by data Automated count Monocytes 1.7 - 9.3 % Normal No May 07 informati 2017 6:11 leukocyte on in AM s in source Blood by data Automated count Platelet 7.4 - fl Low No May 07 mean 10.4 informati 2016 6:11 volume on in AM [Entitic source volume] data in Blood by Automated count Platelets 142 - 424 K/mm3 Normal No May 07 informati 2016 6:11 [#/volume on in AM ] in source Blood data Erythrocy 4.2 - 5.4 M/mm3 Low No May 07 colten informati 2016 6:11 [#/volume on in AM ] in source Amniotic data fluid Erythrocy 11.5 - % Normal No May 07 te 17.5 informati 2016 6:11 distribut on in AM ion width source [Entitic data volume] by Automated count Leukocyte 4.8 - K/MM3 High No May 07 s 10.8 ati 2016 6:11 [#/volume on in AM ] in source Blood data DIARRHEA PANEL,PCR Observa Value Referen Units Interpr Notes Date tion ce etation Range Adenovi NOT NOT No No No May 06 manuel DETECTE DETECTE informa informa informa 2016 40+41 D tion in tion in tion in 1:45 PM Ag source source source [Presen data data data ce] in Stool Aeromon NOT NOT No No No May 06 as DETECTE DETECTE informa informa informa 2016 salmoni D tion in tion in tion in 1:45 PM alysa source source source [Presen data data data ce] in Unspeci fied specime n Astrovi NOT NOT No No No May 06 manuel DETECTE DETECTE informa informa informa 2016 [Presen D tion in tion in tion in 1:45 PM ce] in source source source Stool data data data by Electro n microsc opy Campylo NOT NOT No No No May 06 bacter DETECTE DETECTE informa informa informa 2016 sp Ab D tion in tion in tion in 1:45 PM [Presen source source source ce] in data data data Serum Clostri NOT NOT No No No May 06 dium DETECTE DETECTE informa informa informa 2017 diffici D tion in tion in tion in 1:45 PM le source source source toxin data data data A+B [Presen ce] in Stool Cryptos NOT NOT No No No May 06 poridiu DETECTE DETECTE informa informa informa 2017 m sp Ag D tion in tion in tion in 1:45 PM source source source [Presen data data data ce] in Unspeci fied specime n Cyclosp NOT NOT No No No May 06 ora DETECTE DETECTE informa informa informa 2017 cayetan D tion in tion in tion in 1:45 PM estelle source source source [Presen data data data ce] in Unspeci fied specime n Escheri NOT NOT No No No May 06 emmy DETECTE DETECTE informa informa informa 2017 coli D tion in tion in tion in 1:45 PM [Presen source source source ce] in data data data Unspeci fied specime n by Culture FDA method Escheri DETECTE NOT No Abnorma No May 06 emmy D DETECTE informa l informa 2017 coli tion in tion in 1:45 PM [Presen source source ce] in data data Unspeci fied specime n by Culture FDA method Escheri NOT NOT No No No May 06 emmy DETECTE DETECTE informa informa informa 2017 coli D tion in tion in tion in 1:45 PM Shiga-l source source source diana data data data toxin 1 assa Escheri NOT NOT No No No May 06 emmy DETECTE DETECTE informa informa informa 2017 coli D tion in tion in tion in 1:45 PM [id number] source source source data data data [Presen ce] in Stool by Organis m specifi c culture Entamoe NOT NOT No No No May 06 ba DETECTE DETECTE informa informa informa 2017 histoly D tion in tion in tion in 1:45 PM rikki source source source [Presen data data data ce] in Stool by Trichro me stain Giardia NOT NOT No No No May 06 DETECTE DETECTE informa informa informa 2017 lamblia D tion in tion in tion in 1:45 PM Ag source source source [Presen data data data ce] in Stool Norovir NOT NOT No No No May 06 us Ag DETECTE DETECTE informa informa informa 2017 [Presen D tion in tion in tion in 1:45 PM ce] in source source source Stool data data data Stool NOT NOT No No No May 06 Plesiom DETECTE DETECTE informa informa informa 2017 onas D tion in tion in tion in 1:45 PM shigell source source source oides data data data DNA detec Rotavir NOT NOT No No No May 06 us RNA DETECTE DETECTE informa informa informa 2017 detecti D tion in tion in tion in 1:45 PM on by source source source probe data data data and tar Salmone NOT NOT No No No May 06 lla sp DETECTE DETECTE informa informa informa 2017 DNA D tion in tion in tion in 1:45 PM [Identi source source source fier] data data data in Unspeci fied specime n by Probe & target amplifi cation method Caliciv NOT NOT No No No May 06 irus DETECTE DETECTE informa informa informa 2016 [Identi D tion in tion in tion in 1:45 PM fier] source source source in data data data Stool by Electro n microsc opy Escheri NOT NOT No No No May 06 emmy DETECTE DETECTE informa informa informa 2016 coli D tion in tion in tion in 1:45 PM [Presen source source source ce] in data data data Unspeci fied specime n by Culture FDA method Escheri NOT NOT No No No May 06 emmy DETECTE DETECTE informa informa informa 2016 coli D tion in tion in tion in 1:45 PM SXT source source source gene+H7 data data data gene [Identi fier] in Unspeci fied specime n by Probe & target amplifi cation method Vibrio NOT NOT No No No May 06 cholera DETECTE DETECTE informa informa informa 2016 e DNA D tion in tion in tion in 1:45 PM [Presen source source source ce] in data data data Unspeci fied specime n by Probe & target amplifi cation method Vibrio NOT NOT No No No May 06 sp DNA DETECTE DETECTE informa informa informa 2016 [Identi D tion in tion in tion in 1:45 PM fier] source source source in data data data Unspeci fied specime n by Probe & target amplifi cation method Vibrio NOT NOT No No No May 06 sp DETECTE DETECTE informa informa informa 2016 identif D tion in tion in tion in 1:45 PM ied in source source source Stool data data data by Organis m specifi c culture CBC W Auto Differential panel in Blood Observa Value Referen Units Interpr Notes Date tion ce etation Range Basophils 0 - 0.2 K/MM3 Normal No May 06 informati 2017 6:30 [#/volume on in AM ] in source Blood by data Automated count Basophils 0.1 - 2.0 % Normal No May 06 / informati 2017 6:30 leukocyte on in AM s in source Blood by data Automated count Eosinophi 0.0 - 0.4 K/mm3 High No May 06 ls informati 2017 6:30 [#/volume on in AM ] in source Blood by data Automated count Eosinophi 0.1 - % Normal No May 06 ls/100 12.0 informati 2017 6:30 leukocyte on in AM s in source Blood by data Automated count Granulocy 1.8 - 7.8 K/mm3 High No May 06 colten informati 2017 6:30 [#/volume on in AM ] in source Blood by data Automated count Granulocy 37.0 - % High No May 06 colten/100 80.0 informati 2017 6:30 leukocyte on in AM s in source Blood by data Automated count Hematocri 37.0 - % Low No May 06 t [Volume 47.0 informati 2017 6:30 on in AM Fraction] source of Blood data Hemoglobi 12.2 - g/dL Low No May 06 n 16.2 informati 2017 6:30 [Mass/vol on in AM ume] in source Blood data Lymphocyt 0.7 - 4.5 K/mm3 Normal No May 06 es informati 2017 6:30 [#/volume on in AM ] in source Unspecifi data ed specimen by Automated count Lymphocyt 10 - 50.0 % Low No May 06 es informati 2017 6:30 [#/volume on in AM ] in source Unspecifi data ed specimen by Automated count Erythrocy 27 - 31.2 pg Normal No May 06 te mean informati 2017 6:30 corpuscul on in AM ar source hemoglobi data n [Entitic mass] Erythrocy 31.8 - g/dl Normal No May 06 te mean 35.4 informati 2017 6:30 corpuscul on in AM ar source hemoglobi data n concentra tion [Mass/vol ume] by Automated count Erythrocy 82.2 - fl Normal No May 06 te mean 97.8 informati 2017 6:30 corpuscul on in AM ar volume source [Entitic data volume] by Automated count Monocytes 0.1 - 1.0 K/mm3 Normal No May 06 informati 2017 6:30 [#/volume on in AM ] in source Blood by data Automated count Monocytes 1.7 - 9.3 % Normal No May 06 /100 informati 2017 6:30 leukocyte on in AM s in source Blood by data Automated count Platelet 7.4 - fl Low No May 06 mean 10.4 informati 2017 6:30 volume on in AM [Entitic source volume] data in Blood by Automated count Platelets 142 - 424 K/mm3 High No May 06 informati 2017 6:30 [#/volume on in AM ] in source Blood data Erythrocy 4.2 - 5.4 M/mm3 Low No May 06 colten informati 2017 6:30 [#/volume on in AM ] in source Amniotic data fluid Erythrocy 11.5 - % Normal May 06 te 17.5 informati 2017 6:30 distribut on in AM ion width source [Entitic data volume] by Automated count Leukocyte 4.8 - K/MM3 High No May 06 s 10.8 informati 2017 6:30 [#/volume on in AM ] in source Blood data Basic metabolic panel in Blood Observa Value Referen Units Interpr Notes Date tion ce etation Range Urea 7 - 18 mg/dL Normal No May 06 nitrogen informati 2017 6:30 [Mass/vol on in AM ume] in source Serum or data Plasma Calcium 8.5 - mg/dL Normal No May 06 [Mass/vol 10.1 informati 2017 6:30 ume] in on in AM Serum or source Plasma data Chloride 98 - 107 mmoL/L Normal No May 06 [Moles/vo informati 2017 6:30 lume] in on in AM Serum or source Plasma data Carbon 21.0 - mmoL/L Normal No May 06 dioxide, 32.0 informati 2017 6:30 total on in AM [Moles/vo source lume] in data Serum or Plasma Creatinin 0.55 - mg/dL Normal No May 06 e 1.02 informati 2017 6:30 [Mass/vol on in AM ume] in source Serum or data Plasma Creatinin 50 - 200 ML/MIN Normal No May 06 e renal informati 2017 6:30 clearance on in AM source predicted data by Cockcroft -Gault formula Estimated 59- ML/MIN No REFERENCE May 06 informati RANGE: 2017 6:30 glomerula on in >60 AM r source ML/MIN/1. filtratio data 73 SQUARE n rate METERSIf (GF this patient is -A merican, then multiply theresult by 1.210. Glucose 74 - 106 mg/dL High No May 06 [Mass/vol informati 2016 6:30 ume] in on in AM Serum or source Plasma data Potassium 3.5 - 5.1 mmoL/L Normal No May 06 informati 2016 6:30 [Moles/vo on in AM lume] in source Serum or data Plasma Sodium 136 - 145 mmoL/L Normal No May 06 [Moles/vo informati 2016 6:30 lume] in on in AM Serum or source Plasma data Lactate [Moles/volume] in Blood Observa Value Referen Units Interpr Notes Date tion ce etation Range Lactate 0.4 - 2.0 mmol/L Normal No May 05 [Moles/vo informati 2016 2:00 lume] in on in PM Blood source data Comprehensive metabolic 2000 panel in Serum or Plasma Observa Value Referen Units Interpr Notes Date tion ce etation Range Albumin/G 1.1 - 1.8 No Low No May 05 lobulin informati informati 2016 1:45 [Mass on in on in PM ratio] in source source Serum or data data Plasma Albumin 3.4 - 5.0 gm/dL Low No May 05 [Mass/vol informati 2016 1:45 ume] in on in PM Serum or source Plasma data Alkaline 46 - 116 U/L High No May 05 phosphata informati 2017 1:45 se on in PM [Enzymati source c data activity/ volume] in Serum or Plasma Bilirubin 0.2 - 1.0 mg/dL Normal No May 05 .total informati 2016 1:45 [Mass/vol on in PM ume] in source Serum or data Plasma Urea 7 - 18 mg/dL Normal No May 05 nitrogen informati 2016 1:45 [Mass/vol on in PM ume] in source Serum or data Plasma Calcium 8.5 - mg/dL Normal No May 05 [Mass/vol 10.1 informati 2016 1:45 ume] in on in PM Serum or source Plasma data Chloride 98 - 107 mmoL/L Normal No May 05 [Moles/vo informati 2016 1:45 lume] in on in PM Serum or source Plasma data Carbon 21.0 - mmoL/L Normal No May 05 dioxide, 32.0 inform2016 1:45 total on in PM [Moles/vo source lume] in data Serum or Plasma Creatinin 0.55 - mg/dL Normal No May 05 e 1.02 informati 2016 1:45 [Mass/vol on in PM ume] in source Serum or data Plasma Creatinin 50 - 200 ML/MIN Normal No May 05 e renal informati 2016 1:45 clearance on in PM source predicted data by Cockcroft -Gault formula Estimated 59- ML/MIN Low REFERENCE May 05 RANGE: 2016 1:45 glomerula >60 PM r ML/MIN/1. filtratio 73 SQUARE n rate METERSIf (GF this patient is -A merican, then multiply theresult by 1.210. Globulin 1.3 - 3.2 gm/dL High No May 05 [Mass/vol informati 2016 1:45 ume] in on in PM Serum source data Glucose 74 - 106 mg/dL High May 05 [Mass/vol informati 2016 1:45 ume] in on in PM Serum or source Plasma data Potassium 3.5 - 5.1 mmoL/L Low No May 052016 1:45 [Moles/vo on in PM lume] in source Serum or data Plasma Sodium 136 - 145 mmoL/L Normal No May 05 [Moles/vo informati 2016 1:45 lume] in on in PM Serum or source Plasma data Aspartate 15 - 37 U/L Normal No May 05 inform2016 1:45 aminotran on in PM sferase source [Enzymati data c activity/ volume] in Serum or Plasma Alanine 12 - 78 U/L Normal No May 05 aminotran informati 2016 1:45 sferase on in PM [Enzymati source c data activity/ volume] in Serum or Plasma Protein 6.4 - 8.2 gm/dL High No May 05 [Mass/vol informati 2016 1:45 ume] in on in PM Serum or source Plasma data CBC W Auto Differential panel in Blood Observa Value Referen Units Interpr Notes Date tion ce etation Range Basophils 0 - 0.2 K/MM3 Normal No May 052016 1:45 [#/volume on in PM ] in source Blood by data Automated count Basophils 0.1 - 2.0 % Normal No May 05 /100 inform2016 1:45 leukocyte on in PM s in source Blood by data Automated count Eosinophi 0.0 - 0.4 K/mm3 Normal No May 05 ls 2016 1:45 [#/volume on in PM ] in source Blood by data Automated count Eosinophi 0.1 - % Normal No May 05 ls/100 12.0 informati 2016 1:45 leukocyte on in PM s in source Blood by data Automated count Granulocy 1.8 - 7.8 K/mm3 High No May 05 colten informati 2016 1:45 [#/volume on in PM ] in source Blood by data Automated count Granulocy 37.0 - % High No May 05 colten/100 80.0 inform2016 1:45 leukocyte on in PM s in source Blood by data Automated count Hematocri 37.0 - % Normal No May 05 t [Volume 47.0 ati 2016 1:45 on in PM Fraction] source of Blood data Hemoglobi 12.2 - g/dL Normal No May 05 n 16.2 2016 1:45 [Mass/vol on in PM ume] in source Blood data Lymphocyt 0.7 - 4.5 K/mm3 Normal No May 05 es 2016 1:45 [#/volume on in PM ] in source Unspecifi data ed specimen by Automated count Lymphocyt 10 - 50.0 % Low No May 05 es 2016 1:45 [#/volume on in PM ] in source Unspecifi data ed specimen by Automated count Erythrocy 27 - 31.2 pg Normal No May 05 te mean 2016 1:45 corpuscul on in PM ar source hemoglobi data n [Entitic mass] Erythrocy 31.8 - g/dl Low No May 05 te mean 35.4 informati 2016 1:45 corpuscul on in PM ar source hemoglobi data n concentra tion [Mass/vol ume] by Automated count Erythrocy 82.2 - fl Normal No May 05 te mean 97.8 informati 2016 1:45 corpuscul on in PM ar volume source [Entitic data volume] by Automated count Monocytes 0.1 - 1.0 K/mm3 Normal No May 052016 1:45 [#/volume on in PM ] in source Blood by data Automated count Monocytes 1.7 - 9.3 % Normal No May 05 /100 informati 2016 1:45 leukocyte on in PM s in source Blood by data Automated count Platelet 7.4 - fl Low No May 05 mean 10.4 2016 1:45 volume on in PM [Entitic source volume] data in Blood by Automated count Platelets 142 - 424 K/mm3 High No May 05 inform2016 1:45 [#/volume on in PM ] in source Blood data Erythrocy 4.2 - 5.4 M/mm3 Normal No May 05 colten ati 2016 1:45 [#/volume on in PM ] in source Amniotic data fluid Erythrocy 11.5 - % Normal No May 05 te 17.5 informati 2016 1:45 distribut on in PM ion width source [Entitic data volume] by Automated count Leukocyte 4.8 - K/MM3 High No May 05 s 10.8 ati 2016 1:45 [#/volume on in PM ] in source Blood data Differential panel, method unspecified - Observa Value Referen Units Interpr Notes Date tion ce etation Range Neutrophi 0 - 8 % Normal May 05 ls.band 2016 1:45 form/100 on in PM leukocyte source s in data Blood by Automated count Eosinophi 0 - 3 % Normal No May 05 ls/100 2016 1:45 leukocyte on in PM s in source Blood by data Manual count LYMPH 9 10 - 50 % Low No May 052016 tion in 1:45 PM source data Monocytes 2 - 9 % Normal No May 05ati 2016 1:45 leukocyte on in PM s in source Blood by data Automated count Platele MARKED No No No No May 05 ts INCREAS informa informa informa informa 2016 [Presen E tion in tion in tion in tion in 1:45 PM ce] in source source source source Blood data data data data by Light microsc opy Neutrophi 42 - 76 % High No May 05 ls 2016 1:45 [#/volume on in PM ] in source Blood by data Automated count Cells No #CELLS No No May 05 Counted informati ati ati 2016 1:45 Total [#] on in on in on in PM in Blood source source source data data data Amylase [Enzymatic activity/volume] in Serum or Plasma Observa Value Referen Units Interpr Notes Date tion ce etation Range Amylase 25 - 115 U/L Normal No May 05 [Enzymati informati 2017 1:45 c on in PM activity/ source volume] data in Serum or Plasma
--- OUTSIDE RECORDS SUMMARY | 2017-06-18 07:55 | External Medical Summary Rpt ---
[...] - [facility] 12:00 PM [Mass/vol ume] in [place] [id number] [address] [place], [place] [id number] Ice Crusher: Syd Chamberlain PhD, Phone: [phone] Iron and TIBC Observa Value Referen [...] PM in Serum source or Plasma data [id number] [place], [place] [id number] Ice Crusher: Syd Chamberlain PhD, Phone: [phone] Imflammatory Bowel Disease-IBD Observa Value Referen [...] e of Ulcerativ e colitisPe rformed at: [facility] [id number] [place], [place] [id number] Ice Crusher: Darell Jefferson MD, Phone: [phone] 4Performe d at: - [facility] [id number] [place], [place] [id number] Ice Crusher: Syd Chamberlain PhD, Phone: [phone] Sacchar <20.0 0.0 - Units No [...] - 7.8 K/mm3 High No May 05 cotlen informati 2016 1:45 [#/volume on in PM [...]
== END 2017-06-10 17:22 | disposition home health service (06) | DRG 391 ==
LOC: ER 05:38 → 2ND 10:44
PROVIDERS: Emergency Medicine; Family Medicine; Internal Medicine Gastroenterology; Surgery
PROC: 0DBN8ZX Excision of Sigmoid Colon, Via Natural or Artificial Opening Endoscopic, Diagnostic (ICD-10-PCS; principal; 2017-06-04 11:00)
DX: K58.9 Irritable bowel syndrome, unspecified (principal); E43 Unspecified severe protein-calorie malnutrition; K57.20 Diverticulitis of large intestine with perforation and abscess without bleeding; I10 Essential (primary) hypertension; F41.9 Anxiety disorder, unspecified; N83.209 Unspecified ovarian cyst, unspecified side; Z82.49 Family history of ischemic heart disease and other diseases of the circulatory system; Z83.49 Family history of other endocrine, nutritional and metabolic diseases; Z80.9 Family history of malignant neoplasm, unspecified; Z86.19 Personal history of other infectious and parasitic diseases; Z79.899 Other long term (current) drug therapy; Z23 Encounter for immunization; Z68.26 Body mass index [BMI] 26.0-26.9, adult
CPT/HCPCS: C1751; J1335; J2405; J3370; Q9967

== ENCOUNTER → 2017-07-19 | Outpatient (CLI) | payer MEDICARE ==
[~2017-07-19] MED LIST changes: +BENTYL GENERIC10 MG PO; +CIPRO 500MG TA500 MG PO; +METRONIDAZOLE500 M2 PO; +PREDNISONE20 MG PO
[2017-07-19 10:12] LABS: AEROMONAS NOT DETECTED (NOT DETECTE); ASTROVIRUS NOT DETECTED (NOT DETECTE); CYCLOSPORA CAYETANENSIS NOT DETECTED (NOT DETECTE); E COLI O157 NOT DETECTED (NOT DETECTE); ENTEROAGGREGATIVE E COLI NOT DETECTED (NOT DETECTE); ENTEROPATHOGENIC E COLI NOT DETECTED (NOT DETECTE); ENTEROTOXIGENIC E COLI NOT DETECTED (NOT DETECTE); NOROVIRUS NOT DETECTED (NOT DETECTE); SAPOVIRUS NOT DETECTED (NOT DETECTE); SHIGA-LIKE TOXIN PROD. E COLI NOT DETECTED (NOT DETECTE); SHIGELLA/ENTEROINVASIVE E COLI NOT DETECTED (NOT DETECTE); VIBRIO CHOLERAE NOT DETECTED (NOT DETECTE)
== END ==
LOC: LAB 10:10
PROVIDERS: Internal Medicine Gastroenterology
DX: R19.7 Diarrhea, unspecified (principal)